=== PATIENT | male | born 1960 | race Caucasian/White ===

== ENCOUNTER 2020-07-28 13:52 | Inpatient (IN) ==
[2020-07-28] MEDS ORDERED: OPTIRAY 320 125ml IV ONE (14:07)
[2020-07-28] MEDS ORDERED: DEXAMETHASONE SOD INJ 4 MG/ML VIAL IV STA (14:14)
[2020-07-28] MEDS ORDERED: SODIUM CHLORIDE 0.9% 500 ML IV ONE (14:14)
[2020-07-28] MEDS ORDERED: ACETAMINOPHEN 1,000 MG/100 ML VIAL IV STA (14:14)
[2020-07-28] MEDS ORDERED: CEFEPIME 2,000 MG/20 ML VIAL IV STA (14:15)
[2020-07-28] MEDS ORDERED: levoFLOXacin/D5W 750 MG/150 ML BAG IV STA (14:15)
--- NOTE | 2020-07-28 14:32 | XRay Report ---
XR chest 1V portable HISTORY: SEPSIS COMPARISON: None. FINDINGS: No pneumothorax. Moderate multifocal airspace opacity seen within the periphery of the lung s most pronounced within the lower lobes. This is consistent with a multifocal viral pneumonia. No ev idence for pulmonary edema. No pleural effusions. No pneumothorax. The heart is normal in size. IMPRESSION: Moderate multifocal airspace opacities consistent with a pneumonia. ACT 112: Negative or not required by law. Electronically signed by: Antony Govea M.D. 07/28/2020 2:31 PM
--- NOTE | 2020-07-28 14:34 | Emergency Department Note ---
History of Present Illness General Chief complaint: Shortness of Breath/Dyspnea Stated complaint: COVID+, SHORT OF BREATH, WEAKNESS Time Seen by Provider: 07/28/20 14:03 Source: patient, RN notes reviewed and old records reviewed Mode of arrival: ambulatory Limitations: no limitations History of Present Illness Provider complaint: SOB Onset (ago): day(s) 3 Maximum Pain Intensity: 0 Current Pain Intensity: 0 Relieved By: + immobilization and + rest Exacerbated By: + movement Associated symptoms: + confusion, + cough, + fever/chills, + nausea/vomiting, + shortness of breath and + weakness Treatments prior to arrival: none This is a 59-year-old male who presents emergency department complaining of weakness that started today. The patient appears very confused and is unsure of the month. He thinks he had a Covid test approximately 1 week ago and there is some record in the chart that the patient may have been positive however the patient is unable to verify this. He reports he has no past medical history and does not take any medications. He has not taken anything for his weakness today. The patient reports he is not normally on oxygen. He reports rest makes his weakness better however movement makes it worse. Home Medications Medication Instructions Recorded Confirmed Type Metoprolol Succ (Toprol Xl) 50 mg PO DAILY #30 tab 12/03/14 07/28/20 History (Toprol-Xl) PRIMIDONE (MYSOLINE) 250 mg PO BID #0 tab 12/03/14 07/28/20 History aspirin 81 mg PO DAILY 07/28/20 07/28/20 History carbidopa-levodopa 1 tab PO TID 07/28/20 07/28/20 History lisinopril 10 mg PO DAILY 07/28/20 07/28/20 History topiramate 50 mg PO BID 07/28/20 07/28/20 History Allergies Allergy/AdvReac Type Severity Reaction Status Date / Time No Known Allergies Allergy Unverified 12/03/14 07:57 Past Med/Surg History Medical History (Updated 07/28/20 @ 18:17 by Karol Ramires PA-C) HTN (hypertension) Neuropathy Pneumonia Tick bite Tremor Surgical History (Updated 07/28/20 @ 16:33 by Karol Ramires PA-C) History of colonoscopy Family History (Updated 07/28/20 @ 16:34 by Karol Ramires PA-C) Mother Heart disease Hypotension Father Diabetes Heart disease Tremor Social History (Updated 07/28/20 @ 16:35 by Karol Ramires PA-C) Smoking Status: Never smoker Hx Alcohol Use: Yes (multiple drinks per day) Feels Safe at Home: Yes Review of Systems A total of 10 systems reviewed and were otherwise negative Physical Exam Vital Signs Vital Signs - 24 hr 07/28/20 13:53 07/28/20 14:06 07/28/20 14:08 Temperature 36.8 C Temperature Source Oral Pulse Rate 103 H 94 H Pulse Rate [Finger] Pulse Rate from SpO2 Sensor 94 H Respiratory Rate 18 18 Blood Pressure 91/61 L 104/65 Blood Pressure [Left Arm] Blood Pressure Mean 71 74 Blood Pressure Mean [Left Arm] Pulse Oximetry 85 L 96 85 L Oxygen Delivery Method Room Air Nasal Cannula Room Air Nasal Cannula Oxygen Flow Rate 4 0 Sepsis Recent Fever Within 48 Hours No Sepsis New/Unexplained Change in Mental Status No Sepsis Action Taken by Nursing No Action Required Oxygen Flow Rate - Titration 4 Pulse Oximetry Post Tiitration 95 07/28/20 14:09 07/28/20 14:15 07/28/20 14:21 Temperature 36.5 C Temperature Source Oral Pulse Rate 95 H 92 H Pulse Rate [Finger] 93 H Pulse Rate from SpO2 Sensor 95 H 92 H Respiratory Rate 18 21 20 Blood Pressure Blood Pressure [Left Arm] 104/65 Blood Pressure Mean Blood Pressure Mean [Left Arm] 78 Pulse Oximetry 94 96 94 Oxygen Delivery Method Nasal Cannula Nasal Cannula Nasal Cannula Oxygen Flow Rate 4 4 4 Sepsis Recent Fever Within 48 Hours Sepsis New/Unexplained Change in Mental Status Sepsis Action Taken by Nursing Oxygen Flow Rate - Titration Pulse Oximetry Post Tiitration 07/28/20 14:30 07/28/20 14:31 07/28/20 14:42 Temperature Temperature Source Pulse Rate 90 87 Pulse Rate [Finger] 92 H Pulse Rate from SpO2 Sensor 90 88 Respiratory Rate 23 27 H 16 Blood Pressure 90/63 L Blood Pressure [Left Arm] 90/63 L Blood Pressure Mean 70 Blood Pressure Mean [Left Arm] 72 Pulse Oximetry 95 96 96 Oxygen Delivery Method Nasal Cannula Nasal Cannula Nasal Cannula Oxygen Flow Rate 4 4 4 Sepsis Recent Fever Within 48 Hours Sepsis New/Unexplained Change in Mental Status Sepsis Action Taken by Nursing Oxygen Flow Rate - Titration Pulse Oximetry Post Tiitration 07/28/20 14:45 07/28/20 15:00 07/28/20 15:01 Temperature Temperature Source Pulse Rate 90 88 88 Pulse Rate [Finger] Pulse Rate from SpO2 Sensor 91 H 88 88 Respiratory Rate 21 Blood Pressure 93/68 L Blood Pressure [Left Arm] Blood Pressure Mean 73 Blood Pressure Mean [Left Arm] Pulse Oximetry 96 94 94 Oxygen Delivery Method Nasal Cannula Nasal Cannula Nasal Cannula Oxygen Flow Rate 4 4 4 Sepsis Recent Fever Within 48 Hours Sepsis New/Unexplained Change in Mental Status Sepsis Action Taken by Nursing Oxygen Flow Rate - Titration Pulse Oximetry Post Tiitration 07/28/20 15:15 07/28/20 15:18 07/28/20 15:19 Temperature Temperature Source Pulse Rate 85 84 Pulse Rate [Finger] 85 Pulse Rate from SpO2 Sensor 85 84 Respiratory Rate 20 19 20 Blood Pressure 113/79 Blood Pressure [Left Arm] 113/79 Blood Pressure Mean 93 Blood Pressure Mean [Left Arm] 90 Pulse Oximetry 96 96 96 Oxygen Delivery Method Nasal Cannula Nasal Cannula Room Air Oxygen Flow Rate 4 4 Sepsis Recent Fever Within 48 Hours Sepsis New/Unexplained Change in Mental Status Sepsis Action Taken by Nursing Oxygen Flow Rate - Titration Pulse Oximetry Post Tiitration 07/28/20 15:30 07/28/20 15:31 07/28/20 15:34 Temperature Temperature Source Pulse Rate 86 84 Pulse Rate [Finger] 77 Pulse Rate from SpO2 Sensor 87 84 Respiratory Rate 25 H 21 22 Blood Pressure 119/79 Blood Pressure [Left Arm] 119/78 Blood Pressure Mean 88 Blood Pressure Mean [Left Arm] 91 Pulse Oximetry 96 96 98 Oxygen Delivery Method Nasal Cannula Nasal Cannula Oxygen Flow Rate 4 4 Sepsis Recent Fever Within 48 Hours Sepsis New/Unexplained Change in Mental Status Sepsis Action Taken by Nursing Oxygen Flow Rate - Titration Pulse Oximetry Post Tiitration 07/28/20 15:45 07/28/20 16:03 07/28/20 16:04 Temperature Temperature Source Pulse Rate 78 Pulse Rate [Finger] Pulse Rate from SpO2 Sensor 78 86 82 Respiratory Rate 19 22 Blood Pressure 122/84 Blood Pressure [Left Arm] Blood Pressure Mean 87 Blood Pressure Mean [Left Arm] Pulse Oximetry 100 98 97 Oxygen Delivery Method Nasal Cannula Nasal Cannula Oxygen Flow Rate 4 4 Sepsis Recent Fever Within 48 Hours Sepsis New/Unexplained Change in Mental Status Sepsis Action Taken by Nursing Oxygen Flow Rate - Titration Pulse Oximetry Post Tiitration 07/28/20 16:15 07/28/20 16:16 07/28/20 16:30 Temperature Temperature Source Pulse Rate 82 80 81 Pulse Rate [Finger] Pulse Rate from SpO2 Sensor 81 80 82 Respiratory Rate 21 23 22 Blood Pressure 125/85 123/85 Blood Pressure [Left Arm] Blood Pressure Mean 93 95 Blood Pressure Mean [Left Arm] Pulse Oximetry 100 100 100 Oxygen Delivery Method Oxygen Flow Rate Sepsis Recent Fever Within 48 Hours Sepsis New/Unexplained Change in Mental Status Sepsis Action Taken by Nursing Oxygen Flow Rate - Titration Pulse Oximetry Post Tiitration 07/28/20 16:31 07/28/20 16:45 07/28/20 16:46 Temperature Temperature Source Pulse Rate 81 84 85 Pulse Rate [Finger] Pulse Rate from SpO2 Sensor 81 85 85 Respiratory Rate 23 22 22 Blood Pressure 127/87 Blood Pressure [Left Arm] Blood Pressure Mean 94 Blood Pressure Mean [Left Arm] Pulse Oximetry 99 97 98 Oxygen Delivery Method Oxygen Flow Rate Sepsis Recent Fever Within 48 Hours Sepsis New/Unexplained Change in Mental Status Sepsis Action Taken by Nursing Oxygen Flow Rate - Titration Pulse Oximetry Post Tiitration VITAL SIGNS - Vital signs and nursing notes were reviewed. GENERAL - 59-year-old male appearing stated age who is in no acute distress. Knows he is in hospital, unable to verifiy basic facts, thinks its August SKIN - Without rashes. HEAD - NC/AT. EYES - PERRL with EOMI bilaterally. Sclera anicteric. Palpebral conjunctiva pink and moist with no injection noted. EARS - No deformities of external structures noted on gross examination bilaterally. No pain elicited with palpation of the tragus bilaterally. External auditory canals without discharge or otorrhea. Tympanic membranes pearly carvajal without retraction or bulging. No fluid or purulent material visualized behind the TM. Handle of malleus, umbo, cone of light, pars tensa/flaccid all easily visualized. NOSE - Midline and without cyanosis. No epistaxis or purulent drainage noted. Septum midline without deviation or septal hematoma noted. MOUTH/OROPHARYNX - Without perioral cyanosis. Buccal mucosa pink and moist and without leukoplakia. Tongue midline with equal elevation of palate bilaterally. No tonsillar hypertrophy, erythema, or exudates noted. dentition noted. NECK - Neck with FROM. Supple to palpation. lymphadenopathy noted. No nuchal rigidity. LUNGS - Chest wall symmetric without accessory muscle use, intercostals retractions, or central cyanosis. Normal vesicular breath sounds CTA B/L. No wheezes, rales, or rhonchi appreciated. CARDIAC - RRR with S1/S2. No murmur, rubs, or gallops appreciated. ABDOMEN - Abdominal contour without pulsations or visible masses. BS normoactive all four quadrants. No tenderness, palpable masses, hepatosplenomegaly, or ascites noted. EXTREMITIES - No clubbing or peripheral cyanosis. No pretibial edema present. +3/5 radial, posterior tibial, and dorsalis pedis pulses palpated throughout. +5/5 strength noted in UE/LE bilaterally. NEUROLOGIC - Cranial nerves II through XII grossly intact. Sensory intact to light touch throughout. Patellar reflexes +2/4. PSYCH - A&Ox3 and cooperates fully with examiner. Pt is very pleasant and interacts well with examiner. Course Administered Medications Acetylcysteine 3,400 mg/ (Dextrose) 517 mls @ 125 mls/hr IV TODAY@1715 [facility]; Protocol Stop: 07/28/20 21:24 Last Admin: 07/28/20 17:45 Dose: 125 mls/hr Documented by: [id number] Remdesivir 200 mg/ Sodium (Chloride) 250 mls @ 125 mls/hr IV ONE STA; Protocol Stop: 07/28/20 19:26 Last Admin: 07/28/20 18:13 Dose: 125 mls/hr Documented by: [id number] Discontinued Medications Dexamethasone (Dexamethasone Sod Inj 4 Mg/Ml Vial) 6 mg IV NOW STA Stop: 07/28/20 14:15 Last Admin: 07/28/20 14:41 Dose: 6 mg Documented by: [id number] Diphenhydramine HCl (Diphenhydramine 50 Mg/Ml Vial) 50 mg IV NOW STA Stop: 07/28/20 15:28 Last Admin: 07/28/20 15:30 Dose: 50 mg Documented by: [id number] Diphenhydramine HCl (Diphenhydramine 50 Mg/Ml Vial) Confirm Administered Dose 50 mg .ROUTE .STK-MED ONE Stop: 07/28/20 15:29 Last Admin: 07/28/20 16:12 Dose: Not Given Documented by: [id number] Sodium Chloride (Nss) 500 mls @ 999 mls/hr IV .Q31M ONE Stop: 07/28/20 14:44 Last Infusion: 07/28/20 15:19 Dose: 0 mls/hr Documented by: [id number] Admin: 07/28/20 14:41 Dose: 999 mls/hr Documented by: [id number] Acetaminophen (Ofirmev) 1,000 mg in 100 mls @ 400 mls/hr IV NOW STA Stop: 07/28/20 14:28 Last Infusion: 07/28/20 14:56 Dose: 0 mls/hr Documented by: [id number] Admin: 07/28/20 14:41 Dose: 400 mls/hr Documented by: [id number] Cefepime HCl (Maxipime) 2,000 mg in 20 mls @ 5 mls/min IV NOW STA Stop: 07/28/20 14:18 Last Admin: 07/28/20 14:41 Dose: 5 mls/min Documented by: [id number] Levofloxacin/Dextrose (Levaquin/D5w) 750 mg in 150 mls @ 100 mls/hr IV NOW STA Stop: 07/28/20 15:44 Last Infusion: 07/28/20 18:17 Dose: 0 mls/hr Documented by: [id number] Infusion: 07/28/20 15:29 Dose: 0 mls/hr Documented by: [id number] Admin: 07/28/20 14:41 Dose: 100 mls/hr Documented by: [id number] Multivitamins 10 ml/ Thiamine HCl 100 mg/ Folic Acid 1 mg/Sodium Chloride 1,011.2 mls @ 1,011.2 mls/hr IV .Q1H ONE Stop: 07/28/20 15:52 Last Infusion: 07/28/20 16:28 Dose: 0 mls/hr Documented by: [id number] Admin: 07/28/20 15:18 Dose: 1,011.2 mls/hr Documented by: [id number] Sodium Chloride (Nss 1000ml) 1,000 mls @ 999 mls/hr IV .Q1H1M ONE Stop: 07/28/20 16:14 Last Infusion: 07/28/20 16:28 Dose: 0 mls/hr Documented by: [id number] Admin: 07/28/20 15:30 Dose: 999 mls/hr Documented by: [id number] Acetylcysteine 10,200 mg/ (Dextrose) 251 mls @ 200 mls/hr IV ONCE ONE; Protocol Stop: 07/28/20 16:59 Last Infusion: 07/28/20 17:33 Dose: 0 mls/hr Documented by: [id number] Admin: 07/28/20 16:12 Dose: 200 mls/hr Documented by: [id number] Phytonadione 2.5 mg/ Sodium (Chloride) 50.25 mls @ 100.5 mls/hr IV ONE ONE Stop: 07/28/20 16:20 Last Infusion: 07/28/20 16:48 Dose: 0 mls/hr Documented by: [id number] Admin: 07/28/20 16:10 Dose: 100.5 mls/hr Documented by: [id number] Ioversol (Optiray 320 125ml) 118 ml IV ONCE ONE Stop: 07/28/20 14:08 Last Admin: 07/28/20 14:08 Dose: 118 ml Documented by: [id number] Potassium Chloride (Potassium Chloride Crtab 20 Meq Tabcr) 40 meq PO NOW STA Stop: 07/28/20 15:17 Last Admin: 07/28/20 15:21 Dose: 40 meq Documented by: [id number] Critical Care Time I have personally spent greater than 90 minutes of critical care time in the direct management of this patient. This includes bedside care, interpretation of diagnostic studies, and testing, discussion with consultants, patient, and family members, and other required patient management activities. This 90 minutes is in excess of all separately billable procedures. Medical Decision Making Differential Diagnosis Reactive airway disease, pneumonia, pneumothorax, COPD, CHF, infections, cardiac ischemia, pulmonary embolism, musculoskeletal, gastrointestinal, as well as other pathologies. Medical Records Attestation: I reviewed the patient's medical records. Home Medications Current Medication List: was personally reviewed by [email or web address] Laboratory Data Attestation: I reviewed the patient's lab results. Result diagrams: 07/28/20 14:18 07/28/20 14:18 Lab Results 07/28/20 07/28/20 07/28/20 Range/Units 14:18 14:18 14:18 WBC 3.95 L (4.8-10.8) K/uL RBC 3.32 L (4.7-6.1) M/uL Hgb 11.7 L (14.0-18.0) g/dL Hct 33.6 L (42-52) % MCV 101.2 H (80-100) fL MCH 35.2 H (25-34) pg MCHC 34.8 (32-36) g/dL RDW Std Deviation 51.5 H (36.4-46.3) fL RDW Coeff of Abdifatah 13.9 (11.5-14.5) % Plt Count 200 (130-400) K/uL MPV 12.6 H (7.4-10.4) fL Immature Gran % (Auto) 0.8 % Neut % (Auto) 83.7 % Lymph % (Auto) 12.2 % [place] % (Auto) 2.5 % Eos % (Auto) 0.5 % Baso % (Auto) 0.3 % Neut # (Auto) 3.31 (1.4-6.5) K/uL Lymph # (Auto) 0.48 L (1.2-3.4) K/uL [place] # (Auto) 0.10 L (0.11-0.59) K/uL Eos # (Auto) 0.02 (0-0.5) K/uL Baso # (Auto) 0.01 (0-0.2) K/uL Immature Gran # (Auto) 0.03 H (0.00-0.02) K/uL Dohle Bodies 1+ Giant Platelets 1+ ESR > 90 H (0-14) mm/hr PT (9.0-12.0) Seconds INR (0.9-1.1) APTT (21.0-31.0) Seconds PTT Ratio D-Dimer (0-500) ug/L FEU Sodium (136-145) mmol/L Potassium (3.5-5.1) mmol/L Chloride (98-107) mmol/L Carbon Dioxide (21-32) mmol/L Anion Gap (3-11) BUN (7-18) mg/dl Creatinine (0.6-1.4) mg/dl Est Cr Clr Drug Dosing ml/min Est GFR ( Amer) Est GFR (Non-Af Amer) BUN/Creatinine Ratio (10-20) Glucose (70-99) mg/dl Lactate (0.4-2.0) mmol/L Calcium (8.5-10.1) mg/dl Magnesium (1.8-2.4) mg/dl Ferritin (8-388) ng/ml Total Bilirubin (0.2-1) mg/dl AST (15-37) U/L ALT (12-78) U/L Alkaline Phosphatase (45-117) U/L Ammonia (11-32) umol/L Lactate Dehydrogenase (87-241) U/L Troponin I (0-0.045) ng/ml C-Reactive Protein (0-0.29) mg/dl Total Protein (6.4-8.2) gm/dl Albumin (3.4-5.0) gm/dl Globulin (2.5-4.0) gm/dl Albumin/Globulin Ratio (0.9-2) Vitamin B12 Folate Procalcitonin (0-0.5) ng/ml Acetaminophen Ethyl Alcohol mg/dL (0-3) mg/dl COVID-19 Eval Order SARS-CoV-2, RNA, NAAT (NEGATIVE) Blood Type B Positive Antibody Screen NEGATIVE 07/28/20 07/28/20 07/28/20 Range/Units 14:18 14:18 14:18 WBC (4.8-10.8) K/uL RBC (4.7-6.1) M/uL Hgb (14.0-18.0) g/dL Hct (42-52) % MCV (80-100) fL MCH (25-34) pg MCHC (32-36) g/dL RDW Std Deviation (36.4-46.3) fL RDW Coeff of Abdifatah (11.5-14.5) % Plt Count (130-400) K/uL MPV (7.4-10.4) fL Immature Gran % (Auto) % Neut % (Auto) % Lymph % (Auto) % [place] % (Auto) % Eos % (Auto) % Baso % (Auto) % Neut # (Auto) (1.4-6.5) K/uL Lymph # (Auto) (1.2-3.4) K/uL [place] # (Auto) (0.11-0.59) K/uL Eos # (Auto) (0-0.5) K/uL Baso # (Auto) (0-0.2) K/uL Immature Gran # (Auto) (0.00-0.02) K/uL Dohle Bodies Giant Platelets ESR (0-14) mm/hr PT 46.0 H (9.0-12.0) Seconds INR 4.7 H (0.9-1.1) APTT 51.9 H* (21.0-31.0) Seconds PTT Ratio 1.9 D-Dimer 8030 H* (0-500) ug/L FEU Sodium 132 L (136-145) mmol/L Potassium 3.2 L (3.5-5.1) mmol/L Chloride 99 (98-107) mmol/L Carbon Dioxide 24 (21-32) mmol/L Anion Gap 9.0 (3-11) BUN 56 H (7-18) mg/dl Creatinine 1.80 H (0.6-1.4) mg/dl Est Cr Clr Drug Dosing 40.8 ml/min Est GFR ( Amer) 46.4 Est GFR (Non-Af Amer) 40.0 BUN/Creatinine Ratio 31.1 H (10-20) Glucose 141 H (70-99) mg/dl Lactate 1.9 (0.4-2.0) mmol/L Calcium 8.4 L (8.5-10.1) mg/dl Magnesium 3.3 H (1.8-2.4) mg/dl Ferritin 5456.1 H (8-388) ng/ml Total Bilirubin 0.8 (0.2-1) mg/dl AST 97 H (15-37) U/L ALT 7 L (12-78) U/L Alkaline Phosphatase 71 (45-117) U/L Ammonia (11-32) umol/L Lactate Dehydrogenase (87-241) U/L Troponin I < 0.015 (0-0.045) ng/ml C-Reactive Protein 31.30 H (0-0.29) mg/dl Total Protein 7.7 (6.4-8.2) gm/dl Albumin 2.2 L (3.4-5.0) gm/dl Globulin 5.5 H (2.5-4.0) gm/dl Albumin/Globulin Ratio 0.4 L (0.9-2) Vitamin B12 Folate Procalcitonin (0-0.5) ng/ml Acetaminophen Ethyl Alcohol mg/dL (0-3) mg/dl COVID-19 Eval Order SARS-CoV-2, RNA, NAAT (NEGATIVE) Blood Type Antibody Screen 07/28/20 07/28/20 07/28/20 Range/Units 14:18 14:18 14:39 WBC (4.8-10.8) K/uL RBC (4.7-6.1) M/uL Hgb (14.0-18.0) g/dL Hct (42-52) % MCV (80-100) fL MCH (25-34) pg MCHC (32-36) g/dL RDW Std Deviation (36.4-46.3) fL RDW Coeff of Abdifatah (11.5-14.5) % Plt Count (130-400) K/uL MPV (7.4-10.4) fL Immature Gran % (Auto) % Neut % (Auto) % Lymph % (Auto) % [place] % (Auto) % Eos % (Auto) % Baso % (Auto) % Neut # (Auto) (1.4-6.5) K/uL Lymph # (Auto) (1.2-3.4) K/uL [place] # (Auto) (0.11-0.59) K/uL Eos # (Auto) (0-0.5) K/uL Baso # (Auto) (0-0.2) K/uL Immature Gran # (Auto) (0.00-0.02) K/uL Dohle Bodies Giant Platelets ESR (0-14) mm/hr PT (9.0-12.0) Seconds INR (0.9-1.1) APTT (21.0-31.0) Seconds PTT Ratio D-Dimer (0-500) ug/L FEU Sodium (136-145) mmol/L Potassium (3.5-5.1) mmol/L Chloride (98-107) mmol/L Carbon Dioxide (21-32) mmol/L Anion Gap (3-11) BUN (7-18) mg/dl Creatinine (0.6-1.4) mg/dl Est Cr Clr Drug Dosing ml/min Est GFR ( Amer) Est GFR (Non-Af Amer) BUN/Creatinine Ratio (10-20) Glucose (70-99) mg/dl Lactate (0.4-2.0) mmol/L Calcium (8.5-10.1) mg/dl Magnesium (1.8-2.4) mg/dl Ferritin (8-388) ng/ml Total Bilirubin (0.2-1) mg/dl AST (15-37) U/L ALT (12-78) U/L Alkaline Phosphatase (45-117) U/L Ammonia (11-32) umol/L Lactate Dehydrogenase 598 H (87-241) U/L Troponin I (0-0.045) ng/ml C-Reactive Protein (0-0.29) mg/dl Total Protein (6.4-8.2) gm/dl Albumin (3.4-5.0) gm/dl Globulin (2.5-4.0) gm/dl Albumin/Globulin Ratio (0.9-2) Vitamin B12 Folate Procalcitonin 16.08 H (0-0.5) ng/ml Acetaminophen Ethyl Alcohol mg/dL (0-3) mg/dl COVID-19 Eval [email or web address] SARS-CoV-2, RNA, NAAT (NEGATIVE) Blood Type Antibody Screen 07/28/20 07/28/20 07/28/20 Range/Units 14:39 16:25 16:36 WBC (4.8-10.8) K/uL RBC (4.7-6.1) M/uL Hgb (14.0-18.0) g/dL Hct (42-52) % MCV (80-100) fL MCH (25-34) pg MCHC (32-36) g/dL RDW Std Deviation (36.4-46.3) fL RDW Coeff of Abdifatah (11.5-14.5) % Plt Count (130-400) K/uL MPV (7.4-10.4) fL Immature Gran % (Auto) % Neut % (Auto) % Lymph % (Auto) % [place] % (Auto) % Eos % (Auto) % Baso % (Auto) % Neut # (Auto) (1.4-6.5) K/uL Lymph # (Auto) (1.2-3.4) K/uL [place] # (Auto) (0.11-0.59) K/uL Eos # (Auto) (0-0.5) K/uL Baso # (Auto) (0-0.2) K/uL Immature Gran # (Auto) (0.00-0.02) K/uL Dohle Bodies Giant Platelets ESR (0-14) mm/hr PT (9.0-12.0) Seconds INR (0.9-1.1) APTT (21.0-31.0) Seconds PTT Ratio D-Dimer (0-500) ug/L FEU Sodium (136-145) mmol/L Potassium (3.5-5.1) mmol/L Chloride (98-107) mmol/L Carbon Dioxide (21-32) mmol/L Anion Gap (3-11) BUN (7-18) mg/dl Creatinine (0.6-1.4) mg/dl Est Cr Clr Drug Dosing ml/min Est GFR ( Amer) Est GFR (Non-Af Amer) BUN/Creatinine Ratio (10-20) Glucose (70-99) mg/dl Lactate (0.4-2.0) mmol/L Calcium (8.5-10.1) mg/dl Magnesium (1.8-2.4) mg/dl Ferritin (8-388) ng/ml Total Bilirubin (0.2-1) mg/dl AST (15-37) U/L ALT (12-78) U/L Alkaline Phosphatase (45-117) U/L Ammonia 17.9 (11-32) umol/L Lactate Dehydrogenase (87-241) U/L Troponin I (0-0.045) ng/ml C-Reactive Protein (0-0.29) mg/dl Total Protein (6.4-8.2) gm/dl Albumin (3.4-5.0) gm/dl Globulin (2.5-4.0) gm/dl Albumin/Globulin Ratio (0.9-2) Vitamin B12 Folate Procalcitonin (0-0.5) ng/ml Acetaminophen Ethyl Alcohol mg/dL < 3.0 (0-3) mg/dl COVID-19 Eval Order SARS-CoV-2, RNA, NAAT POSITIVE A* (NEGATIVE) Blood Type Antibody Screen 07/28/20 07/28/20 Range/Units 16:37 16:39 WBC (4.8-10.8) K/uL RBC (4.7-6.1) M/uL Hgb (14.0-18.0) g/dL Hct (42-52) % MCV (80-100) fL MCH (25-34) pg MCHC (32-36) g/dL RDW Std Deviation (36.4-46.3) fL RDW Coeff of Abdifatah (11.5-14.5) % Plt Count (130-400) K/uL MPV (7.4-10.4) fL Immature Gran % (Auto) % Neut % (Auto) % Lymph % (Auto) % [place] % (Auto) % Eos % (Auto) % Baso % (Auto) % Neut # (Auto) (1.4-6.5) K/uL Lymph # (Auto) (1.2-3.4) K/uL [place] # (Auto) (0.11-0.59) K/uL Eos # (Auto) (0-0.5) K/uL Baso # (Auto) (0-0.2) K/uL Immature Gran # (Auto) (0.00-0.02) K/uL Dohle Bodies Giant Platelets ESR (0-14) mm/hr PT (9.0-12.0) Seconds INR (0.9-1.1) APTT (21.0-31.0) Seconds PTT Ratio D-Dimer (0-500) ug/L FEU Sodium (136-145) mmol/L Potassium (3.5-5.1) mmol/L Chloride (98-107) mmol/L Carbon Dioxide (21-32) mmol/L Anion Gap (3-11) BUN (7-18) mg/dl Creatinine (0.6-1.4) mg/dl Est Cr Clr Drug Dosing ml/min Est GFR ( Amer) Est GFR (Non-Af Amer) BUN/Creatinine Ratio (10-20) Glucose (70-99) mg/dl Lactate (0.4-2.0) mmol/L Calcium (8.5-10.1) mg/dl Magnesium (1.8-2.4) mg/dl Ferritin (8-388) ng/ml Total Bilirubin (0.2-1) mg/dl AST (15-37) U/L ALT (12-78) U/L Alkaline Phosphatase (45-117) U/L Ammonia (11-32) umol/L Lactate Dehydrogenase (87-241) U/L Troponin I (0-0.045) ng/ml C-Reactive Protein (0-0.29) mg/dl Total Protein (6.4-8.2) gm/dl Albumin (3.4-5.0) gm/dl Globulin (2.5-4.0) gm/dl Albumin/Globulin Ratio (0.9-2) Vitamin B12 Cancelled Folate Cancelled Procalcitonin (0-0.5) ng/ml Acetaminophen Cancelled Ethyl Alcohol mg/dL (0-3) mg/dl COVID-19 Eval Order SARS-CoV-2, RNA, NAAT (NEGATIVE) Blood Type Antibody Screen Imaging Data Radiologist's Impression: [facility], [place] [phone] XRay Report Patient: ADRIA BELLO Admit Date: 07/28/20 MR#: [id number] Address1: [address] [place] [address] [address] Acct ID:[id number] Address2: Date: 1960 [facility] Zip: [place] [id number] Age: 59 Location: ED Sex: M Room/Bed: Att Phy: Diagnosis: COVID+, SHORT OF BREATH, WEAKNESS Marylou Phy: Lalo Sue MD Service Date: 07/28/20 Fam Phy: Interpreting Phy: Antony Govea MD Admit Phy: Ordering Phy: Aristides Marin MD cc: ~ XR chest 1V portable HISTORY: SEPSIS COMPARISON: None. FINDINGS: No pneumothorax. Moderate multifocal airspace opacity seen within the periphery of the lungs most pronounced within the lower lobes. This is consistent with a multifocal viral pneumonia. No evidence for pulmonary edema. No pleural effusions. No pneumothorax. The heart is normal in size. IMPRESSION: Moderate multifocal airspace opacities consistent with a pneumonia. ACT 112: Negative or not required by law. Electronically signed by: Antony Govea M.D. 07/28/2020 2:31 PM Dictated: 07/28/20 1430 Transcribed: 07/28/20 1430 [facility], [phone] CT Scan Report Patient: ADRIA BELLOAdmit Date: 07/28/20MR#: [id number]: [address] [place] [address] ROADAcct ID:[id number]: Date: 1960[facility] Zip: [place] [id number]: 59Location: EDSex: MRoom/Bed:Att Phy:Diagnosis: COVID+, SHORT OF BREATH, WEAKNESSPri Phy: Lalo Sue, ANAIervice Date: 07/28/20Fa Phy:Interpreting Phy: Antony Conley Phy: Ordering Phy: Aristides Marin MD cc: ~ CT chest wo con CT DOSE: HISTORY: Cough. Fever. Pt ARF, Covid+ TECHNIQUE: Multiaxial CT images of the chest were performed without contrast. A dose lowering technique was utilized adhering to the principles of ALARA. COMPARISON: Cough. Fever. Shortness of breath. FINDINGS: No pneumothorax. No pleural effusions. The central airways are patent. Moderate multifocal groundglass and consolidative airspace opacities with areas of interstitial thickening consistent with a viral pneumonia. No suspicious lytic or blastic osseous lesions. Normal esophagus. No hilar lymphadenopathy. Subcentimeter mediastinal lymph nodes do not meet CT criteria for pathologic involvement. There are calcified subcarinal and left hilar lymph nodes. The heart is normal in size. No pericardial effusion. Normal caliber thoracic aorta. Old, healed left anterior rib fractures. No suspicious lytic or blastic osseous lesions. IMPRESSION: Moderate multifocal airspace opacities consistent with a viral pneumonia. ACT 112: Negative or not required by law. Electronically signed by: Antony Govea M.D. 07/28/2020 4:06 PM Dictated: 07/28/20 1601Transcribed: 07/28/20 1601 [facility], [id number] CT Scan Report Patient: ADRIA BELLOAdmit Date: 07/28/20#: [id number]: [facility]:[id number]: Date: 1960Ci Zip: [place] [id number]: 59Location: EDSex: MRoom/Bed:Att Phy:Diagnosis: COVID+, SHORT OF BREATH, WEAKNESSPri Phy: Lalo Sue, ANAIervice Date: 07/28/20Fa Phy:Interpreting Phy: Antony Conley Phy: Ordering Phy: Aristides Marin MD cc: ~ ABDOMEN AND PELVIS CT WITHOUT CONTRAST CT DOSE: 1132.53 mGy.cm HISTORY: Acute renal failure. TECHNIQUE: Multiaxial CT images of the abdomen and pelvis were performed without contrast. A dose lowering technique was utilized adhering to the principles of ALARA. COMPARISON STUDY: None. FINDINGS: There is 7 mm subpleural nodule within the left lower lobe on image 1. This was not well visualized on the same day chest CT due to the motion artifact. Multifocal airspace opacities are again noted within the lung bases. This is consistent with a viral pneumonia. No pneumoperitoneum. No pneumatosis. Old, healed left-sided rib fractures. Tiny fat-containing umbilical hernia. Moderate bladder wall thickening. The prostate gland is mildly enlarged. The unenhanced liver, gallbladder, adrenal glands, and pancreas are within normal limits. The unenhanced kidneys appear unremarkable. No renal or ureteral stones. No hydronephrosis. Minimal bilateral perinephric edema. This is likely chronic. No retroperitoneal lymphadenopathy. Normal caliber abdominal aorta. No pelvic free fluid. Suboptimal evaluation for bowel pathology due to the lack of intravenous and oral contrast. However, there is no definite bowel wall thickening or obstruction. Normal appendix. IMPRESSION: 1. No renal or ureteral stones. No hydronephrosis. 2. Moderate bladder wall thickening. This could be due to a chronic outlet obstruction from the enlarged prostate gland. Recommend correlation with urinalysis to exclude a cystitis. 3. No definite bowel wall thickening or obstruction. 4. A 7 mm subpleural nodule within the left lower lobe. This is not well evaluated on the same day chest CT due to the motion artifact. [address] follow-up recommended to evaluate for stability. 5. Moderate multifocal airspace opacities within the lung bases consistent with the patient's history of a viral pneumonia. ACT 112: Negative or not required by law. Electronically signed by: Antony Govea M.D. 07/28/2020 4:15 PM Dictated: 07/28/20 1607Transcribed: 07/28/20 160 [facility], [id number] CT Scan Report Patient: ADRIA BELLOAdmit Date: 07/28/20#: [id number]: 122 [facility] ID:[id number]: Date: 1960ty Zip: [place] [id number]: 59Location: EDSex: MRoom/Bed:Att Phy:Diagnosis: COVID+, SHORT OF BREATH, WEAKNESSPri Phy: Lalo Sue MDService Date: 07/28/20Fa Phy:Interpreting Phy: Antony Govea MDAdmit Phy: Ordering Phy: Aristides Marin MD cc: ~ HEAD CT NONCONTRAST CT DOSE: HISTORY: Altered mental status. Fever. TECHNIQUE: Multiaxial CT images of the head were performed without the use of intravenous contrast. Automated exposure control was utilized for this study. A dose lowering technique was utilized adhering to the principles of ALARA. Comparison: None. Findings: The paranasal sinuses and mastoid air cells are clear. The calvarium and skull base are intact. The ventricles and sulci are within normal limits. There is no mass, hematoma, midline shift, or acute infarct. Impression: No acute intracranial abnormality. ACT 112: Negative or not required by law. Electronically signed by: Antony Govea M.D. 07/28/2020 4:47 PM Dictated: 07/28/201643Transcribed: 07/28/201643 ECG Data Attestation: I personally reviewed and interpreted this ECG as follows: Indication: + altered mental status Rate (beats per minute): 93 Rhythm: + normal sinus ECG Intervals/blocks: + Prolonged QT and + Normal QT-c (492) ECG [place]: + Normal ECG ST segments: no ST depression and no ST elevation Comparison ECG Date: no prior available Blood Pressure Blood Pressure Findings: Low blood pressure MDM Narrative Patient was seen and evaluated as above in room C5. Review was performed of nursing notes and vital signs. I did review pertinent previous visits and patient history. After obtaining a thorough history and physical examination the above work up was performed. This is a 59-year-old male who presents to the emergency department acutely confused. The patient is septic with a fever hypotensive and tachycardic. Sepsis alert was immediately initiated. The patient was placed on broad- spectrum antibiotics including cefepime and Levaquin. He is requiring oxygen here in the emergency department. He was given a normal saline bolus. The patient has an elevation in his INR. This 70 grossly confirmed concerned that the patient may be liver failure however he has a normal T bili. Talking with the [facility] service they are concerned that the patient may have taken Coumadin that was his mother's. He was sent for CAT scan of the chest abdomen pelvis. This did not show any acute process. He was started on N- acetylcysteine alcohol and Tylenol levels were obtained. He was also given 2.5 mg of vitamin K. I did discuss the case with the hospitalist service who was kind enough to come and see the patient. They are going to admit the patient. In the meantime the patient had an allergic reaction to the Levaquin and was given 50 mg of Benadryl. The patient was given a banana bag as well as 1.5 L of normal saline bolus make an equivalent of 2.5 L of fluid to cover sepsis criteria. An order was placed for continuous cardiac monitoring. The monitor shows a rate of 93 with Normal SInus rhythm. The patient was evaluated during a period of high volume and high acuity while the hospital was at overcapacity during the global COVID-19 pandemic, and that diagnosis was suspected/considered upon their initial presentation. Their evaluation, treatment and testing was consistent with current guidelines for patients who present with complaints or symptoms that may be related to COVID- 19. Impression & Plan Altered mental status, Sepsis Discharge Plan Visit Data Chief Complaint: Shortness of Breath/Dyspnea Stated Complaint: COVID+, SHORT OF BREATH, WEAKNESS ED Provider: Aristides Marin Discharge Problem: Altered mental status, Sepsis Discharge Instructions Interventions: ED Discharge Assessment Last Done: 07/28/20 19:05 Discharge Problem: Altered mental status Qualifiers: Altered mental status type: unspecified Qualified Code(s): R41.82 - Altered mental status, unspecified Sepsis Qualifiers: Sepsis type: sepsis due to unspecified organism Sepsis acute organ dysfunction status: unspecified Qualified Code(s): A41.9 - Sepsis, unspecified organism
[2020-07-28 14:41] LABS: Hematocrit (blood only) 33.6 % (42-52); Hemoglobin 11.7 g/dL (14.0-18.0); Mean Corpuscular Hemoglobin 35.2 pg (25-34); Mean Corpuscular Hgb Conc 34.8 g/dL (32-36); Mean Corpuscular Volume 101.2 fL (80-100); Mean Platelet Volume 12.6 fL (7.4-10.4); Platelet Count 200 K/uL (130-400); RDW Coefficient of Variation 13.9 % (11.5-14.5); RDW Standard Deviation 51.5 fL (36.4-46.3); Red Blood Count 3.32 M/uL (4.7-6.1); White Blood Count 3.95 K/uL (4.8-10.8)
[2020-07-28] MEDS ORDERED: MULTI-VITAMIN INFUSION 10 ML, THIAMINE HCL 100 MG, FOLIC ACID 1 MG in SODIUM CHLORIDE 0... IV ONE (14:53)
[2020-07-28 15:03] LABS: Alanine Aminotransferase 7 U/L (12-78); Albumin Level 2.2 gm/dl (3.4-5.0); Aspartate Aminotransferase 97 U/L (15-37); BUN Creatinine Ratio 31.1 (10-20); Blood Urea Nitrogen 56 mg/dl (7-18); Calcium 8.4 mg/dl (8.5-10.1); Carbon Dioxide 24 mmol/L (21-32); Chloride 99 mmol/L (98-107); Creatinine Clr Calc Pharmacy 40.8 ml/min; Est GFR (African American) 46.4; Glucose 141 mg/dl (70-99); Magnesium 3.3 mg/dl (1.8-2.4); Potassium 3.2 mmol/L (3.5-5.1); Sodium 132 mmol/L (136-145)
[2020-07-28 15:04] LABS: INR 4.7 (0.9-1.1); Partial Thromboplastin Ratio 1.9
[2020-07-28 15:10] LABS: D Dimer 8030 ug/L FEU (0-500); Partial Thromboplastin Time 51.9 Seconds (21.0-31.0)
[2020-07-28 15:12] LABS: Basophils # (auto) 0.01 K/uL (0-0.2); Basophils % (auto) 0.3 %; Dohle Bodies 1+; Eosinophils # (auto) 0.02 K/uL (0-0.5); Eosinophils % (auto) 0.5 %; Giant Platelets 1+; Immature Granulocytes # (auto) 0.03 K/uL (0.00-0.02); Immature Granulocytes % (auto) 0.8 %; Lymphocytes # (auto) 0.48 K/uL (1.2-3.4); Lymphocytes % (auto) 12.2 %; Monocytes % (auto) 2.5 %; Neutrophils # (auto) 3.31 K/uL (1.4-6.5); Neutrophils % (auto) 83.7 %
[2020-07-28] MEDS ORDERED: SODIUM CHLORIDE 0.9% 1000ML 1,000 ML IV ONE (15:14)
[2020-07-28] MEDS ORDERED: POTASSIUM CHLORIDE CRTAB 20 MEQ TABCR PO STA (15:16)
[2020-07-28 15:23] LABS: Albumin Globulin Ratio 0.4 (0.9-2); Alkaline Phosphatase 71 U/L (45-117); Bilirubin,Total 0.8 mg/dl (0.2-1); Ferritin 5456.1 ng/ml (8-388); Globulin 5.5 gm/dl (2.5-4.0); Total Protein 7.7 gm/dl (6.4-8.2); Troponin I < 0.015 ng/ml (0-0.045)
[2020-07-28] MEDS ORDERED: diphenhydrAMINE 50 MG/ML VIAL IV STA (15:27)
[2020-07-28] MEDS ORDERED: diphenhydrAMINE 50 MG/ML VIAL ONE (15:28)
[2020-07-28] MEDS ORDERED: DEXTROSE 5% IV ONE (15:44)
[2020-07-28] MEDS ORDERED: ACETYLCYSTEINE IV ONE (15:44)
[2020-07-28] MEDS ORDERED: PHYTONADIONE 2.5 MG in SODIUM CHLORIDE 0.9% 50 ML IV ONE (15:51)
--- NOTE | 2020-07-28 16:08 | CT Scan Report ---
CT chest wo con CT DOSE: HISTORY: Cough. Fever. Pt ARF, Covid+ TECHNIQUE: Multiaxial CT images of the chest were performed without contrast. A dose lowering techni que was utilized adhering to the principles of ALARA. COMPARISON: Cough. Fever. Shortness of breath. FINDINGS: No pneumothorax. No pleural effusions. The central airways are patent. Moderate multifocal groundglass and consolidative airspace opacities with areas of interstitial thickening consistent wit h a viral pneumonia. No suspicious lytic or blastic osseous lesions. Normal esophagus. No hilar lymph adenopathy. Subcentimeter mediastinal lymph nodes do not meet CT criteria for pathologic involvement. There are calcified subcarinal and left hilar lymph nodes. The heart is normal in size. No pericardi al effusion. Normal caliber thoracic aorta. Old, healed left anterior rib fractures. No suspicious ly tic or blastic osseous lesions. IMPRESSION: Moderate multifocal airspace opacities consistent with a viral pneumonia. ACT 112: Negative or not required by law. Electronically signed by: Antony Govea M.D. 07/28/2020 4:06 PM
--- NOTE | 2020-07-28 16:10 | History & Physical Report ---
Date of Service July 28, 2020 Assessment & Plan (1) Sepsis: (2) Pneumonia: (3) COVID-19: (4) Anemia: (5) Macrocytosis: (6) Elevated INR: (7) Altered mental status: Patient presented to the ED acutely confused, possibly secondary to COVID related encephalopathy. Patient was informed of his COVID diagnosis yesterday, and this morning became extremely confused. History taken from his mother & his mother's caregiver, Kalpana who felt the patient has been off balance, unable to walk properly, and having worsening tremors x 1 week or so. Confusion was only today. Admit to telemetry for further monitoring. Patient needs to continue isolation for COVID-19 infection. Multiple lab values with abnormalities as stated in the HPI. Patient is not on Warfain, but his INR was 4.7. Because of elevated INR, anemia, macrocytosis, and severe presentation, will check further labs including: B12, folate, peripheral smear, fibrinogen, reticulocyte count, haptoglobin Pending labs include: urine tox screen, Tylenol level, Warfarin level Repeat in AM: CBC, CMP, ESR, CRP, LDH, INR, Ferritin, CBC Because of COVID-19 infection, patient was also started on Dexamethasone, Remdesivir, and he does qualify for convalescent plasma. The patient verbally consented, but the patient's mother also consented to treatment after discussion with Dr. Manley. Due to patient's altered mental status, family consent was also obtained. Continue to supplement O2 PRN to maintain SaO2 >90% CT of Abd/Pelvis and CT Head were unrevealing for causes of lab abnormalities. Continue to monitor closely for mental status changes. Seems unlikely that patient is having alcohol withdrawal since he hasn't drank in >1 week per family and per patient (with Dr. Manley's examination) With elevated procalcitonin, will also continue PO Levaquin and IV Cefepime, renally dosed pending improvement Will also check MRSA nasal swab, if +, may need to change coverage. Consider CTA Chest to R/O PE if renal function improves. (8) Tremor: Patient has outpatient tremor and neuropathy that was worsened over the past week. Seems likely secondary to COVID-19 infection. Monitor for changes (9) Acute renal failure: Will continue NSS 100cc/hr Repeat renal function in AM Encourage PO intake (10) DVT prophylaxis: SCDs only for now with elevated INR Family Information: Brother Armando: [phone] Mother Rhonda: [phone] History of Present Illness Chief Complaint: Confusion, COVID Primary Care Provider: Lalo Sue MD Patient is a 59 yo male who presented to the ED via personal vehicle, his brother dropped him off with acute confusion. The patient is unable to give any history because of current mental state. His outpatient records were accessed, and his mother's name was in the emergency contact. His mother, Rhonda Macias was contacted. She has a caregiver with her daily, Kalpana who answered most of the questions asked. The patient's mother and Kalpana state that the patient started increasing his alcohol consumption about 3-4 weeks ago and was drinking about a 6-pack or more per day. He abruptly stopped (from what they know) about 1 1/2 weeks ago. He also stopped chewing tobacco about 1 week ago. He was diagnosed with COVID as an outpatient. His test was done on Wednesday and came back this weekend. 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 Kalpana noted that the patient has been having increased problems with his balance at home x 1 week. The patient does have resting tremor, and outpatient records note that he was being worked up for "parkinsonism" but he never completed the workup. His medication list was reviewed with Kalpana as well. The patient does take Tylenol at home regularly. 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 Since presentation to the ED, the patient was confirmed to have COVID-19 infection. Labs revealed: WBC 3.95 slightly decreased. Hgb 11.7 with macrocytosis ESR >90 CRP 31.3 Ferritin 5456 LDH 598 INR 4.7 (though patient is not on Coumadin) Mild LFT elevation with AST 97, ALT 7, Alk Phos & total bili within norm Procalcitonin elevated at 16 Patient also noted to have ERICA with Creatinine of 1.8. Baseline is 0.9 as outpatient. No history of renal disease in chart. Potassium 3.2, Sodium 132, Magnesium elevated at 3.3 Tylenol level pending. SaO2 upon presentation was 85%. Slightly hypotensive upon arrival, but Vitals are now stable. Patient is on O2 via nasal cannula. Allergies Allergy/AdvReac Type Severity Reaction Status Date / Time No Known Allergies Allergy Unverified 12/03/14 07:57 Home Medications Medication Instructions Recorded Confirmed Type Metoprolol Succ (Toprol Xl) 50 mg PO DAILY #30 tab 12/03/14 07/28/20 History (Toprol-Xl) PRIMIDONE (MYSOLINE) 250 mg PO BID #0 tab 12/03/14 07/28/20 History aspirin 81 mg PO DAILY 07/28/20 07/28/20 History carbidopa-levodopa 1 tab PO TID 07/28/20 07/28/20 History lisinopril 10 mg PO DAILY 07/28/20 07/28/20 History topiramate 50 mg PO BID 07/28/20 07/28/20 History Past Med/Surg History Medical History (Updated 07/28/20 @ 18:17 by Karol Ramires PA-C) HTN (hypertension) Neuropathy Pneumonia Tick bite Tremor Surgical History (Updated 07/28/20 @ 16:33 by Karol Ramires PA-C) History of colonoscopy Family History (Updated 07/28/20 @ 16:34 by Karol Ramires PA-C) Mother Heart disease Hypotension Father Diabetes Heart disease Tremor Social History (Updated 07/28/20 @ 16:35 by Karol Ramires PA-C) Smoking Status: Never smoker Second Hand Exposure: No; Do You Dip or Chew Tobacco: Yes; Tobacco Cessation Education Requested by Patient: No Hx Alcohol Use: Yes Alcohol type: beer Hx Substance Use: No Preferred Language: Italian Communication Ability: Effective Communication Ability Comment: INT. 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 Manley's addendum for physical exam findings. Results & Data Results & Data ([facility]) Vital Signs (Past 12 Hours) Vital Signs Temp Pulse Pulse Resp BP BP Pulse Ox 07/28/20 15:34 77 22 119/78 98 07/28/20 15:19 85 20 113/79 96 07/28/20 14:42 92 H 16 90/63 L 96 07/28/20 14:21 36.5 C 93 H 20 104/65 94 07/28/20 14:08 85 L 07/28/20 13:53 36.8 C 103 H 18 91/61 L 85 L Laboratory Results Laboratory Results - last 24 hr 07/28/20 07/28/20 07/28/20 14:18 14:18 14:18 WBC 3.95 L RBC 3.32 L Hgb 11.7 L Hct 33.6 L MCV 101.2 H MCH 35.2 H MCHC 34.8 RDW Std Deviation 51.5 H RDW Coeff of Abdifatah 13.9 Plt Count 200 MPV 12.6 H Immature Gran % (Auto) 0.8 Neut % (Auto) 83.7 Lymph % (Auto) 12.2 [place] % (Auto) 2.5 Eos % (Auto) 0.5 Baso % (Auto) 0.3 Neut # (Auto) 3.31 Lymph # (Auto) 0.48 L [place] # (Auto) 0.10 L Eos # (Auto) 0.02 Baso # (Auto) 0.01 Immature Gran # (Auto) 0.03 H Dohle Bodies 1+ Giant Platelets 1+ ESR > 90 H PT INR APTT PTT Ratio D-Dimer Sodium Potassium Chloride Carbon Dioxide Anion Gap BUN Creatinine Est Cr Clr Drug Dosing Est GFR ( Amer) Est GFR (Non-Af Amer) BUN/Creatinine Ratio Glucose Lactate Calcium Magnesium Ferritin Total Bilirubin AST ALT Alkaline Phosphatase Lactate Dehydrogenase Troponin I C-Reactive Protein Total Protein Albumin Globulin Albumin/Globulin Ratio Procalcitonin COVID-19 Eval Order SARS-CoV-2, RNA, NAAT Blood Type B Positive Antibody Screen NEGATIVE 07/28/20 07/28/20 07/28/20 14:18 14:18 14:18 WBC RBC Hgb Hct MCV MCH MCHC RDW Std Deviation RDW Coeff of Abdifatah Plt Count MPV Immature Gran % (Auto) Neut % (Auto) Lymph % (Auto) [place] % (Auto) Eos % (Auto) Baso % (Auto) Neut # (Auto) Lymph # (Auto) [place] # (Auto) Eos # (Auto) Baso # (Auto) Immature Gran # (Auto) Dohle Bodies Giant Platelets ESR PT 46.0 H INR 4.7 H APTT 51.9 H* PTT Ratio 1.9 D-Dimer 8030 H* Sodium 132 L Potassium 3.2 L Chloride 99 Carbon Dioxide 24 Anion Gap 9.0 BUN 56 H Creatinine 1.80 H Est Cr Clr Drug Dosing 40.8 Est GFR ( Amer) 46.4 Est GFR (Non-Af Amer) 40.0 BUN/Creatinine Ratio 31.1 H Glucose 141 H Lactate 1.9 Calcium 8.4 L Magnesium 3.3 H Ferritin 5456.1 H Total Bilirubin 0.8 AST 97 H ALT 7 L Alkaline Phosphatase 71 Lactate Dehydrogenase Troponin I < 0.015 C-Reactive Protein 31.30 H Total Protein 7.7 Albumin 2.2 L Globulin 5.5 H Albumin/Globulin Ratio 0.4 L Procalcitonin COVID-19 Eval Order SARS-CoV-2, RNA, NAAT Blood Type Antibody Screen 07/28/20 07/28/20 07/28/20 14:18 14:18 14:39 WBC RBC Hgb Hct MCV MCH MCHC RDW Std Deviation RDW Coeff of Abdifatah Plt Count MPV Immature Gran % (Auto) Neut % (Auto) Lymph % (Auto) [place] % (Auto) Eos % (Auto) Baso % (Auto) Neut # (Auto) Lymph # (Auto) [place] # (Auto) Eos # (Auto) Baso # (Auto) Immature Gran # (Auto) Dohle Bodies Giant Platelets ESR PT INR APTT PTT Ratio D-Dimer Sodium Potassium Chloride Carbon Dioxide Anion Gap BUN Creatinine Est Cr Clr Drug Dosing Est GFR ( Amer) Est GFR (Non-Af Amer) BUN/Creatinine Ratio Glucose Lactate Calcium Magnesium Ferritin Total Bilirubin AST ALT Alkaline Phosphatase Lactate Dehydrogenase 598 H Troponin I C-Reactive Protein Total Protein Albumin Globulin Albumin/Globulin Ratio Procalcitonin 16.08 H COVID-19 Eval Order Covid19 [facility] SARS-CoV-2, RNA, NAAT Blood Type Antibody Screen 07/28/20 14:39 WBC RBC Hgb Hct MCV MCH MCHC RDW Std Deviation RDW Coeff of Abdifatah Plt Count MPV Immature Gran % (Auto) Neut % (Auto) Lymph % (Auto) [place] % (Auto) Eos % (Auto) Baso % (Auto) Neut # (Auto) Lymph # (Auto) [place] # (Auto) Eos # (Auto) Baso # (Auto) Immature Gran # (Auto) Dohle Bodies Giant Platelets ESR PT INR APTT PTT Ratio D-Dimer Sodium Potassium Chloride Carbon Dioxide Anion Gap BUN Creatinine Est Cr Clr Drug Dosing Est GFR ( Amer) Est GFR (Non-Af Amer) BUN/Creatinine Ratio Glucose Lactate Calcium Magnesium Ferritin Total Bilirubin AST ALT Alkaline Phosphatase Lactate Dehydrogenase Troponin I C-Reactive Protein Total Protein Albumin Globulin Albumin/Globulin Ratio Procalcitonin COVID-19 Eval Order SARS-CoV-2, RNA, NAAT POSITIVE A* Blood Type Antibody Screen Diagnostic Findings CHEST X-RAY: IMPRESSION: Moderate multifocal airspace opacities consistent with a pneumonia. Chest CT: IMPRESSION: Moderate multifocal airspace opacities consistent with a viral pneumonia. Abd/Pelvis CT: IMPRESSION: 1. No renal or ureteral stones. No hydronephrosis. 2. Moderate bladder wall thickening. This could be due to a chronic outlet obstruction from the enlarged prostate gland. Recommend correlation with urinalysis to exclude a cystitis. 3. No definite bowel wall thickening or obstruction. 4. A 7 mm subpleural nodule within the left lower lobe. This is not well evaluated on the same day chest CT due to the motion artifact. [address] follow-up recommended to evaluate for stability. 5. Moderate multifocal airspace opacities within the lung bases consistent with the patient's history of a viral pneumonia. Head CT: Impression: No acute intracranial abnormality. Supervising Physician Co-Signing Physician Notes Pt was seen and examined. Agreed with Karol BURGOS assessment and plan. Patient is a 59 yo male with PMH of HTN was brought by his brother to the ED due to altered mental status. Most of the history obtained from family members over the phone and ER chart. Pt said that this morning he woke up, he had his breakfast. He said that he had a call from [facility] that his COVID 19 testing was positive. He said that he was testing for COVID due to symptoms of shortness of breath. Pt said that he was having SOB on exertion. Pt said that the last thing he remembered was getting the call for his COVID 19 result, then after that he found himself in the hospital. Family said that pt has been off balance lately. Family said that pt quits drinking alcohol 2 weeks ago. Pt said that he could not recalled the last time he drank. He said that he did not drink for Neil and New year. The patient does have resting tremor, and outpatient records note that he was being worked up for "parkinsonism". 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 His oxygen level on presentation was in the 85's on RA. Lab on admission showed elevated Ferritin 5456, LDH 598, INR 4.7 (though patient is not on Coumadin), Mild LFT elevation with AST 97, ALT 7, Alk Phos & total bili within norm, Procalcitonin elevated at 16 and creatinine 1.6. Denies any chest pain, palpitation, dizziness and fever, loss of taste or smell. General- No acute distress Head- atraumatic Eyes- PERRL, EOMI, no nystagmus ENT- oropharynx clear Neck- supple, no JVD Lungs- No wheezing Heart- regular rhythm; no murmur Abdomen- normal bowel sounds, soft, nontender Extremities- no calf tenderness Neuro- alert, awake, know place, month, year but not the date, able to follow commands, finger to nose intake, no tremors, No nystagmus, PERRL, EOMI; no facial palsy; no dysarthria Skin- warm & dry A/P COVID 19 Positive Pneumonia COVID [address] chest showed moderate multifocal airspace opacities consistent with a viral pneumonia. Lab on admission showed elevated Ferritin 5456, LDH 598, and procalcitonin Received IV dexamethasone 6mg and Levofloxacin and Cefepime in the ER Pt meets criteria for Remdesivir, Decadron and plasma convalescent Pt agreed for the Remdesivir and plasma convalescent, but since he is having altered mental status, telephone consent obtained from the Mother (and Kalpana mother caregiver was on the line also). Mother agreed for the plasma convalescent after reviewed side effects such as allergies, rash, fever, bleeding, infection, volume overload. Will monitor LFT while on Remdesivir Will repeat D-Dimer, CRP, ESR, Ferritin, LDH in am Continue broad spectrum abx with Cefepime and Levaquin Will follow blood cx Coagulopathy Elevated D-dimer Elevated INR Mostly due to COVID 19 INR 4.1 on admission Received Vit K in the ER Unable to get a CT chest to r/o PE due to elevate creatinine Doubt PE since INR was 4.1, but if D-Dimer continues to elevate and SOB worsening, will get a CTA chest once creatinine normalizes Will order fibrinogen, haptoglobin, recticulocyte ct, peripheral smear to eval for DIC Encephalopathy Possible related to COVID 19 encephalopathy Doubt about DT since pt last drink was 2 weeks ago according to family and pt. CT head showed no acute intracranial abnormality Will continue monitor closely Alcohol abuse Pt said that he has not had any drink for almost 2 weeks Will monitor for sign of DT or withdrawn Will add thiamine and folic acid Continue monitor closely Elevated AST Received Acetylcysteine in the ER Tylenol level normal Will monitor LFT Please refer to Karol BURGOS's documentation for other problems. MD Sindhu (1) Sepsis Sepsis acute organ dysfunction status: unspecified Sepsis type: sepsis due to unspecified organism Qualified Code(s): A41.9 - Sepsis, unspecified organism (2) Altered mental status Altered mental status type: unspecified Qualified Code(s): R41.82 - Altered mental status, unspecified
--- NOTE | 2020-07-28 16:16 | CT Scan Report ---
ABDOMEN AND PELVIS CT WITHOUT CONTRAST CT DOSE: 1132.53 mGy.cm HISTORY: Acute renal failure. TECHNIQUE: Multiaxial CT images of the abdomen and pelvis were performed without contrast. A dose lo wering technique was utilized adhering to the principles of ALARA. COMPARISON STUDY: None. FINDINGS: There is 7 mm subpleural nodule within the left lower lobe on image 1. This was not well vi sualized on the same day chest CT due to the motion artifact. Multifocal airspace opacities are again noted within the lung bases. This is consistent with a viral pneumonia. No pneumoperitoneum. No pneu matosis. Old, healed left-sided rib fractures. Tiny fat-containing umbilical hernia. Moderate bladder wall thickening. The prostate gland is mildly enlarged. The unenhanced liver, gallbladder, adrenal g lands, and pancreas are within normal limits. The unenhanced kidneys appear unremarkable. No renal or ureteral stones. No hydronephrosis. Minimal bilateral perinephric edema. This is likely chronic. No retroperitoneal lymphadenopathy. Normal caliber abdominal aorta. No pelvic free fluid. Suboptimal yinka luation for bowel pathology due to the lack of intravenous and oral contrast. However, there is no de finite bowel wall thickening or obstruction. Normal appendix. IMPRESSION: 1. No renal or ureteral stones. No hydronephrosis. 2. Moderate bladder wall thickening. This could be due to a chronic outlet obstruction from the enlar ged prostate gland. Recommend correlation with urinalysis to exclude a cystitis. 3. No definite bowel wall thickening or obstruction. 4. A 7 mm subpleural nodule within the left lower lobe. This is not well evaluated on the same day ch est CT due to the motion artifact. [address] follow-up recommended to evaluate for stability. 5. Moderate multifocal airspace opacities within the lung bases consistent with the patient's history of a viral pneumonia. ACT 112: Negative or not required by law. Electronically signed by: Antony Govea M.D. 07/28/2020 4:15 PM
--- NOTE | 2020-07-28 16:49 | CT Scan Report ---
HEAD CT NONCONTRAST CT DOSE: HISTORY: Altered mental status. Fever. TECHNIQUE: Multiaxial CT images of the head were performed without the use of intravenous contrast. A utomated exposure control was utilized for this study. A dose lowering technique was utilized adheri ng to the principles of ALARA. Comparison: None. Findings: The paranasal sinuses and mastoid air cells are clear. The calvarium and skull base are int act. The ventricles and sulci are within normal limits. There is no mass, hematoma, midline shift, or acute infarct. Impression: No acute intracranial abnormality. ACT 112: Negative or not required by law. Electronically signed by: Antony Govea M.D. 07/28/2020 4:47 PM
[2020-07-28] MEDS ORDERED: DEXTROSE 5% IV SCH ×2 (17:15→21:30)
[2020-07-28] MEDS ORDERED: ACETYLCYSTEINE IV SCH ×2 (17:15→21:30)
[2020-07-28] MEDS ORDERED: REMDESIVIR 200 MG in SODIUM CHLORIDE 0.9% 210 ML IV STA (17:27)
[2020-07-28 19:04] LABS: Folate (Folic Acid) > 20.00 ng/ml (>5.38); Vitamin B12 444 pg/ml (193-986)
[2020-07-28] MEDS ORDERED: CEFEPIME CONSULT ACTIVE PRN (19:35)
[2020-07-28 20:26] LABS: Fibrinogen > 860 mg/dl (184-400)
[2020-07-28] MEDS: SODIUM CHLORIDE 0.9% 1000ML 1,000 ML IV SCH (20:36)
[2020-07-28] MEDS: SODIUM CHLORIDE 0.9% 10ML FLUSH IV SCH (20:36)
[2020-07-28] MEDS: TOPIRAMATE 50 MG TAB PO SCH (21:50)
[2020-07-28] MEDS: PRIMIDONE 250 MG TAB PO SCH (21:50)
[2020-07-28] MEDS: CARBIDOPA/LEVODOPA 25/100MG TAB PO SCH (21:51)
--- NOTE | 2020-07-28 22:38 | Electrocardiogram Report ---
Test Reason : Blood Pressure : / mmHG Vent. Rate : 093 BPM Atrial Rate : 093 BPM P-R Int : 162 ms QRS Dur : 104 ms QT Int : 396 ms P-R-T Axes : 049 015 052 degrees QTc Int : 492 ms Normal sinus rhythm Prolonged QT Abnormal ECG No previous ECGs available Confirmed by Juan José Perkins ([id number]) on 07/28/2020 10:37:46 PM Referred By: REFERRED SELF Confirmed By:Juan José Perkins
[2020-07-29] MEDS: CEFEPIME 2,000 MG in SYRINGE 0 ML IV SCH ×3 (00:12→19:47)
[2020-07-29 00:37] LABS: Appearance Urine Clear (Clear); Bacteria Urine Automated Negative (Negative); Bilirubin Urine Negative (Negative); Blood Urine Negative (Negative); Color Urine Yellow; Glucose Urine UA Negative (Negative); Ketones Urine Trace (Negative); Leukocyte Esterase Urine Negative (Negative); Nitrite Urine Negative (Negative); Protein Urine 1+ (Negative); RBC Urine Automated 0-4 /hpf (0-4); Specific Gravity Urine 1.022 (1.000-1.030); Urobilinogen Urine Negative (Negative)
[2020-07-29 00:54] LABS: Amphetamines+Metham, Urine Neg (Neg); Barbiturates, Urine Pos (Neg); Benzodiazepine, Urine Neg (Neg); Cocaine, Urine Neg (Neg); MDMA (Ecstacy), Urine Neg (Neg); Methadone, Urine Neg (Neg); Opiate, Urine Neg (Neg); Phencyclidine, Urine Neg (Neg)
[2020-07-29] MEDS: SODIUM CHLORIDE 0.9% 1000ML 1,000 ML IV SCH ×2 (06:25→15:33)
[2020-07-29 07:11] LABS: Hemoglobin 10.4 g/dL (14.0-18.0); Mean Corpuscular Hemoglobin 34.8 pg (25-34); Mean Corpuscular Hgb Conc 34.7 g/dL (32-36); Mean Corpuscular Volume 100.3 fL (80-100); Mean Platelet Volume 12.2 fL (7.4-10.4); Platelet Count 196 K/uL (130-400); RDW Coefficient of Variation 14.1 % (11.5-14.5); RDW Standard Deviation 51.5 fL (36.4-46.3); Red Blood Count 2.99 M/uL (4.7-6.1); White Blood Count 2.62 K/uL (4.8-10.8)
[2020-07-29 07:27] LABS: INR 1.1 (0.9-1.1); Prothrombin Time 11.3 Seconds (9.0-12.0)
[2020-07-29 07:37] LABS: Eosinophils # (auto) 0.01 K/uL (0-0.5); Eosinophils % (auto) 0.4 %; Giant Platelets 1+; Immature Granulocytes # (auto) 0.01 K/uL (0.00-0.02); Immature Granulocytes % (auto) 0.4 %; Lymphocytes # (auto) 0.37 K/uL (1.2-3.4); Lymphocytes % (auto) 14.1 %; Monocytes # (auto) 0.11 K/uL (0.11-0.59); Monocytes % (auto) 4.2 %; Neutrophils # (auto) 2.12 K/uL (1.4-6.5); Neutrophils % (auto) 80.9 %
[2020-07-29 07:49] LABS: Albumin Level 1.5 gm/dl (3.4-5.0); BUN Creatinine Ratio 33.8 (10-20); Calcium 7.4 mg/dl (8.5-10.1); Creatinine Clr Calc Pharmacy 74.6 ml/min; Est GFR (African American) 100.4; Est GFR (Non-African American) 86.7; Potassium 3.5 mmol/L (3.5-5.1)
[2020-07-29 08:04] LABS: Albumin Globulin Ratio 0.3 (0.9-2); Bilirubin,Total 0.6 mg/dl (0.2-1); C Reactive Protein 18.6 mg/dl (0-0.29); Ferritin 3886.3 ng/ml (8-388); Globulin 4.4 gm/dl (2.5-4.0); Total Protein 5.9 gm/dl (6.4-8.2)
[2020-07-29] MEDS: CARBIDOPA/LEVODOPA 25/100MG TAB PO SCH ×3 (08:10→19:49)
[2020-07-29] MEDS: METOPROLOL SUCC 50MG EXT REL TAB PO SCH (08:11)
[2020-07-29] MEDS: lisinopril 10 MG TAB PO SCH (08:11)
[2020-07-29] MEDS: TOPIRAMATE 50 MG TAB PO SCH ×2 (08:11→19:49)
[2020-07-29] MEDS: PRIMIDONE 250 MG TAB PO SCH ×2 (08:12→19:49)
[2020-07-29] MEDS ORDERED: POTASSIUM CHLORIDE CRTAB 20 MEQ TABCR PO STA ×2 (08:13→12:33)
[2020-07-29] MEDS: dexAMETHasone 6 MG in SYRINGE 0 ML IV SCH (08:16)
--- NOTE | 2020-07-29 08:37 | Pulmonary Consultation ---
Date of Consultation July 29, 2020 Assessment & Plan (1) Pneumonia due to COVID-19 virus: CT chest 07/28/2019 personally reviewed: Diffuse groundglass opacities appreciated mostly in the periphery. No dense consolidative process. No mediastinal adenopathy. --Acute hypoxic respiratory failure Secondary to multilobar pneumonia secondary to COVID-19 Ferritin 5456, LDH 598, CRP 31.3, procalcitonin 16 COVID-19 PCR + 07/28/2020, nasal MRSA negative Positive lymphopenia D-dimer 9680 Continue with remdesivir for total of 5 days Continue with dexamethasone for total of 10 days Given the elevated procalcitonin I would agree with antibiotics. Lovenox 40 mg twice daily --Metabolic encephalopathy I think it is multifactorial Patient is a drinker which does go with his underlying pancytopenia macrocytic anemia --> would be case of Warnicke's encephalopathy COVID-19 has been associated with altered mental status as well Steroid encephalopathy is also a possibility Lewby body dementia with history of parkinsons is in the differential. MRI of the brain could be thought of. Sodium, Calcium within normal limit, ammonia 17.9 Tylenol negative, UDS was positive for barbiturates, alcohol level was negative Aspiration precautions Plan as per primary team Plan: Continue to supplement oxygen to keep saturation between 90-92% Complete the course of remdesivir and dexamethasone I will increase the thiamine for the patient to be 500 mg 3 times daily for 2 days followed by 250 mg for 5 days daily and 100 mg daily along with multivitamins Discontinue levofloxacin given the QTC is 475 instead give doxycycline Patient does have complex initial presentation where he had INR of 4.7 although he was not on any medication, Tylenol level was negative. Today's INR is 1.1 he did get vitamin K in the ED but should not to normal I am unsure if the first INR was a mistake. Patient's metabolic acidosis is likely from starvation ketosis as beta hydroxybutyric acid is positive today. Recommend starting the patient on D5 after supplementing the patient with thiamine. Follow-up TSH Please note the above document was generated using voice recognition software. It may contain grammatical, syntax or spelling errors.Any formal questions or concerns about the content, text or information contained within the body of this dictation should be directly addressed to the provider for clarification. (2) Metabolic encephalopathy: (3) Acute respiratory failure with hypoxia: (4) COVID-19: History of Present Illness Attending Physician: Piyush Manley MD History of Present Illness 59-year-old male with past medical history of possible alcohol abuse, Parkinson's disease, hypertension was admitted to the hospital because of encephalopathy Pulmonary consult because of increasing oxygen demand. Patient is a very poor historian. At the time of examination he was saturating 95% on 6 L nasal cannula. I went down to 4 L. He denied any chest pain, no headache, no nausea, no vomiting. He says that his breathing is okay. Unfortunately he was not able to answer very complex questions He was not in any respiratory distress. Was breathing in high teens. Allergies Allergy/AdvReac Type Severity Reaction Status Date / Time No Known Allergies Allergy Unverified 12/03/14 07:57 Home Medications Medication Instructions Recorded Confirmed Type Metoprolol Succ (Toprol Xl) 50 mg PO DAILY #30 tab 12/03/14 07/28/20 History (Toprol-Xl) PRIMIDONE (MYSOLINE) 250 mg PO BID #0 tab 12/03/14 07/28/20 History aspirin 81 mg PO DAILY 07/28/20 07/28/20 History carbidopa-levodopa 1 tab PO TID 07/28/20 07/28/20 History lisinopril 10 mg PO DAILY 07/28/20 07/28/20 History topiramate 50 mg PO BID 07/28/20 07/28/20 History Patient History Medical History (Updated 07/29/20 @ 17:49 by Zaida Pacheco MD) HTN (hypertension) Neuropathy Pneumonia Tick bite Tremor Surgical History (Updated 07/28/20 @ 16:33 by Karol Ramires PA-C) History of colonoscopy Family History (Updated 07/28/20 @ 16:34 by Karol Ramires PA-C) Mother Heart disease Hypotension Father Diabetes Heart disease Tremor Social History (Updated 07/28/20 @ 16:35 by Karol Ramires PA-C) Smoking Status: Never smoker Second Hand Exposure: No; Do You Dip or Chew Tobacco: Yes; Tobacco Cessation Education Requested by Patient: No Hx Alcohol Use: Yes Alcohol type: beer Hx Substance Use: No Preferred Language: Syriac Communication Ability: Impaired Communication Ability Comment: INT. 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 Other Information That Helps Us Care for You: No Feels Safe at Home: Yes Safety Concerns: Feels Safe At This Time Review of Systems Review of Systems: All systems reviewed & are unremarkable except as noted in HPI & below and Unobtainable due to cognitive status Physical Exam Physical Exam: Constitutional: No acute distress HEENT: EOMI, PERRLA Respiratory system: Decreased air entry bilaterally, no wheeze, no rhonchi, positive crackles bilateral CVS: S1-S2 positive, no murmurs or gallops, tachycardia Abdomen: Soft, nontender, nondistended, positive bowel sounds x4 Extremities: +2 pulses bilaterally radialis/ dorsalis pedis, no cyanosis, no edema Neuro: Awake alert oriented x3 Psych: Normal mood and affect G/U: No Kinney Skin: no rashes, warm and dry Lymphatic: no cervical or axillary lymphadenopathy Results & Data Results & Data ([facility]) Vital Signs (Past 12 Hours) Vital Signs Temp Pulse Pulse Resp BP BP Pulse Ox 07/29/20 08:28 36.7 C 118 H 20 136/78 93 07/29/20 06:26 22 92 07/29/20 03:57 24 94 07/29/20 03:28 37.5 C 115 H 19 152/90 H 97 07/29/20 02:00 22 93 07/28/20 23:59 87 07/28/20 23:54 99 H 24 169/89 H 97 07/28/20 23:52 22 97 07/28/20 22:53 24 92 07/28/20 22:00 91 H 22 134/72 94 07/28/20 21:00 20 93 07/29/20 06:40 07/29/20 06:40 PG Care Time/CCT Total # of Minutes Spent Total Time Spent with Patient: Total time spent is greater than 50% in coordination of care (as documented) at patient's floor/unit and/or counseling patient: Coding Level of Care Code 02488 Inpt Consult Level 4 Diagnoses Pneumonia due to COVID-19 virus U07.1; J12.82 Metabolic encephalopathy G93.41 Acute respiratory failure with hypoxia J96.01 COVID-19 U07.1
[2020-07-29 09:03] LABS: D Dimer 9680 ug/L FEU (0-500)
--- NOTE | 2020-07-29 14:42 | Electrocardiogram Report ---
Test Reason : Blood Pressure : / mmHG Vent. Rate : 112 BPM Atrial Rate : 112 BPM P-R Int : 170 ms QRS Dur : 102 ms QT Int : 348 ms P-R-T Axes : 049 014 070 degrees QTc Int : 475 ms Sinus tachycardia Otherwise normal ECG When compared with ECG of 28-JUL-2020 14:21, No significant change was found Confirmed by Hugh Oliver ([id number]) on 07/29/2020 2:42:10 PM Referred By: REFERRED SELF Confirmed By:Hugh Oliver
[2020-07-29 14:46] LABS: Reticulocyte % < 0.5 % (0.5-2.0); Reticulocytes # < 0.02 10^6/uL (0.02-0.10)
--- NOTE | 2020-07-29 15:32 | Hospitalist Progress Note ---
Date of Service July 29, 2020 Assessment & Plan (1) Altered mental status: Patient presented to the ED acutely confused Possible due to COVID 19 encephalopathy, doubt altered mental status is related to alcohol withdrawal Doubt about DT since pt last drink was 2 weeks ago according to family and pt. Ammonia level normal CT head showed no intracranial abnormality No neuro focal deficit on exam Mental status improves (2) Pneumonia due to COVID-19 virus: COVID [address] chest showed moderate multifocal airspace opacities consistent with a viral pneumonia. Lab on admission showed elevated Ferritin 5456, LDH 598, and procalcitonin Received IV dexamethasone 6mg and Levofloxacin and Cefepime in the ER Pt meets criteria for Remdesivir, Decadron and plasma convalescent Pt agreed for the Remdesivir and plasma convalescent, but since he is having altered mental status, telephone consent obtained from the Mother (and Kalpana mother caregiver was on the line also). Mother agreed for the plasma convalescent after reviewed side effects such as allergies, rash, fever, bleeding, infection, volume overload. Consent obtained on admission- waiting to administer Continue monitor LFT while on Remdesivir D-Dimer increased to 9K, CRP trending down from 31 to 18, ESR above 90, Ferritin dropped to 3886 LDH decreased to 466 Continue broad spectrum abx with Cefepime and Levaquin Will continue monitor anti inflammatory markers such as CRP, ESR, Ferritin and LDH Continue High flow oxygen Will encourage pt to prone Follow blood cx Pulmonology consulted Acute renal failure Creatinine on admission 1.8 Received IVF, creatinine 0.9 Lisinopril resumed Continue monitor BMP Elevated INR Possible related to COVID 19 vs poor nutrition and alcohol vs liver etiology INR 4.1 on admission, Received Vit K in the ER, repeat INR today 1.1 Elevated INR might have been related to lab error No sign of DIC since no oozing blood on exam, fibrinogen level elevated Peripheral smear showed No significant number of schistocytes or spherocytes is identified. Elevated D-dimer Mostly related to COVID 19 Doubt PE since INR was 4.1 on admission Repeat INR increased from 8K to 9K today NO CTA chest done on admission because pt creatinine was elevate at 1.8 Case discussed with pulmonary that recommended to hold on any CTA chest for PE Will continue monitor closely Alcohol abuse Alcohol level less than 3 Pt said that he has not had any drink for almost 2 weeks Will monitor for sign of DT or withdrawn Will add thiamine and folic acid Continue monitor closely Elevated AST Possible related to alcohol abuse UDS negative Will complete Acetylcysteine that was ordered in the ER Tylenol level normal AST improved to 62 Continue monitor LFT Anemia Hgb 10.4 today Iron panel showed normal iron, low TIBC , Elevated ferritin Peripheral smear showed slightly macrocytic appearing erythrocytes without anisopoikilocytosis. Continue monitor CBC Elevated Beta hydroxybutyrate Possible related to alcohol abuse/poor nutrition No anion gap Continue IVF Weakness Mostly related to acute illness and alcohol abuse PT/OT eval Fall precaution DVT px will add Lovenox subq CODE STATUS FULL CODE Admission and Anticipated Discharge Date Admission Date: July 28, 2020 Subjective Pt was seen and examined for follow up of confusion and hypoxia due to COVID19 Lying in bed with no distress watching TV Pt said that he feels ok He said that he spoke to his family on the phone today He said that he remembered his brother brought him to the hospital He said that he has not been drinking any alcohol for a while He said that his breathing ok Denies any hallucination, chest pain, palpitation, dizziness, voices Physical Exam Physical Exam: General- No acute distress Head- atraumatic Eyes- PERRL, EOMI, no nystagmus ENT- oropharynx clear Neck- supple, no JVD Lungs- No wheezing Heart- +tachycardia, no murmur Abdomen- normal bowel sounds, soft, nontender Extremities- no calf tenderness Neuro- alert, awake, know place, month, year but not the date, able to follow commands, finger to nose intake, no tremors, No nystagmus, PERRL, EOMI; no facial palsy; no dysarthria Skin- warm & dry Results & Data Results & [facility] ([facility]) Vital Signs (Past 12 Hours) Vital Signs Temp Pulse Resp BP Pulse Ox 07/29/20 14:56 37.3 C 104 H 20 144/92 H 95 07/29/20 11:01 37.3 C 113 H 20 140/88 93 07/29/20 08:28 36.7 C 118 H 20 136/78 93 07/29/20 06:26 22 92 07/29/20 03:57 24 94 (1) Altered mental status Altered mental status type: unspecified Qualified Code(s): R41.82 - Altered mental status, unspecified
[2020-07-29] MEDS ORDERED: guaiFENesin/DEXTROM SYRUP 200MG/20MG 10ML UDC PO PRN (15:41)
[2020-07-29] MEDS ORDERED: THIAMINE HCL 100 MG TAB PO SCH (16:45)
[2020-07-29] MEDS: FOLIC ACID 1 MG TAB PO SCH (18:01)
[2020-07-29] MEDS: REMDESIVIR 100 MG in SODIUM CHLORIDE 0.9% 230 ML IV SCH (19:47)
[2020-07-29] MEDS: DOXYCYCLINE HYCLATE 100 MG in DEXTROSE 5% 100 ML IV SCH (19:47)
[2020-07-29] MEDS: THIAMINE HCL 500 MG in 0.9 % SODIUM CHLORIDE 100 ML IV SCH (19:47)
[2020-07-29] MEDS: ENOXAPARIN INJ 40 MG/0.4 ML SYR SQ SCH (19:48)
[2020-07-29] MEDS: SODIUM CHLORIDE 0.9% 10ML FLUSH IV SCH (21:00)
[2020-07-30] MEDS: CEFEPIME 2,000 MG in SYRINGE 0 ML IV SCH ×3 (04:07→20:09)
[2020-07-30] MEDS: SODIUM CHLORIDE 0.9% 1000ML 1,000 ML IV SCH (07:32)
[2020-07-30] MEDS: DOXYCYCLINE HYCLATE 100 MG in DEXTROSE 5% 100 ML IV SCH ×2 (07:39→18:33)
[2020-07-30 08:38] LABS: Hematocrit (blood only) 31.3 % (42-52); Hemoglobin 10.5 g/dL (14.0-18.0); Mean Corpuscular Hemoglobin 34.8 pg (25-34); Mean Corpuscular Hgb Conc 33.5 g/dL (32-36); Mean Corpuscular Volume 103.6 fL (80-100); Mean Platelet Volume 11.8 fL (7.4-10.4); Platelet Count 197 K/uL (130-400); RDW Coefficient of Variation 14.3 % (11.5-14.5); RDW Standard Deviation 53.9 fL (36.4-46.3); Red Blood Count 3.02 M/uL (4.7-6.1); White Blood Count 3.18 K/uL (4.8-10.8)
[2020-07-30] MEDS: THIAMINE HCL 500 MG in 0.9 % SODIUM CHLORIDE 100 ML IV SCH ×3 (08:52→20:10)
[2020-07-30] MEDS: dexAMETHasone 6 MG in SYRINGE 0 ML IV SCH (08:53)
[2020-07-30] MEDS: PRIMIDONE 250 MG TAB PO SCH ×2 (08:55→20:11)
[2020-07-30] MEDS: MULTIVITAMIN TAB PO SCH (08:55)
[2020-07-30] MEDS: METOPROLOL SUCC 50MG EXT REL TAB PO SCH (08:55)
[2020-07-30] MEDS: lisinopril 10 MG TAB PO SCH (08:55)
[2020-07-30] MEDS: FOLIC ACID 1 MG TAB PO SCH (08:55)
[2020-07-30] MEDS: TOPIRAMATE 50 MG TAB PO SCH ×2 (08:55→20:11)
[2020-07-30] MEDS: ENOXAPARIN INJ 40 MG/0.4 ML SYR SQ SCH ×2 (08:56→20:10)
[2020-07-30 09:00] LABS: INR 1.1 (0.9-1.1); Prothrombin Time 11.7 Seconds (9.0-12.0)
[2020-07-30] MEDS: CARBIDOPA/LEVODOPA 25/100MG TAB PO SCH ×3 (09:00→20:11)
[2020-07-30 09:12] LABS: D Dimer 30360 ug/L FEU (0-500)
[2020-07-30 09:13] LABS: Albumin Level 1.5 gm/dl (3.4-5.0); BUN Creatinine Ratio 22.3 (10-20); Calcium 7.8 mg/dl (8.5-10.1); Creatinine Clr Calc Pharmacy 73.1 ml/min; Est GFR (African American) 97.9; Est GFR (Non-African American) 84.5; Potassium 3.3 mmol/L (3.5-5.1)
[2020-07-30 09:30] LABS: Albumin Globulin Ratio 0.4 (0.9-2); Beta-Hydroxybutyrate 4.58 mg/dl (0.2-2.81); Ferritin 4420.3 ng/ml (8-388); Globulin 4.1 gm/dl (2.5-4.0); Total Protein 5.6 gm/dl (6.4-8.2)
[2020-07-30] MEDS ORDERED: levoFLOXacin 750 MG TAB PO SCH (11:00)
--- NOTE | 2020-07-30 12:43 | Electrocardiogram Report ---
Test Reason : Blood Pressure : / mmHG Vent. Rate : 114 BPM Atrial Rate : 114 BPM P-R Int : 166 ms QRS Dur : 098 ms QT Int : 334 ms P-R-T Axes : 047 011 061 degrees QTc Int : 460 ms Sinus tachycardia Otherwise normal ECG When compared with ECG of 29-JUL-2020 13:07, No significant change was found Confirmed by Hugh Oliver ([id number]) on 07/30/2020 12:42:31 PM Referred By: REFERRED SELF Confirmed By:Hugh Oliver
--- NOTE | 2020-07-30 12:53 | Pulmonology Progress Note ---
Date of Service July 30, 2020 Assessment & Plan (1) Pneumonia due to COVID-19 virus: CT chest 07/28/2019 personally reviewed: Diffuse groundglass opacities appreciated mostly in the periphery. No dense consolidative process. No mediastinal adenopathy. --Acute hypoxic respiratory failure Secondary to multilobar pneumonia secondary to COVID-19 Ferritin 5456, LDH 598, CRP 31.3, procalcitonin 16 COVID-19 PCR + 07/28/2020, nasal MRSA negative Positive lymphopenia D-dimer 9680 Continue with remdesivir for total of 5 days Continue with dexamethasone for total of 10 days Given the elevated procalcitonin I would agree with antibiotics. Lovenox 40 mg twice daily --Metabolic encephalopathy I think it is multifactorial Patient is a drinker which does go with his underlying pancytopenia macrocytic anemia --> would be case of Warnicke's encephalopathy COVID-19 has been associated with altered mental status as well Steroid encephalopathy is also a possibility Lewby body dementia with history of parkinsons is in the differential. MRI of the brain could be thought of. Sodium, Calcium within normal limit, ammonia 17.9, TSH within normal limit Tylenol negative, UDS was positive for barbiturates, alcohol level was negative Aspiration precautions Plan as per primary team Plan: In/out: 3 L, urine output 975 Patient is +7 L since coming to the hospital. I will give him a dose of Lasix. Follow-up NT BNP Continue to supplement oxygen to keep saturation between 90-92% Could consider high flow if the patient is persistently needing more than 8 L nasal cannula. Overall poor cough and mental status is not a good sign and the patient I would like the patient to be using flutter valve to bring up the phlegm. He usually desaturates when he is not able to bring up the phlegm I was there when that happened. I have personally spent 36 minutes of critical care time in the direct management of this patient. This is a life/limb threatening event. This includes time spent evaluating patient, direct bedside care, chart review, placing orders, interpretation of di agnostic studies, discussion with consultants, patient, and family members, as well as other required patient management activities. This time is exclusive of all separately billable procedures, and teaching time and separate from and in addition to any other critical care service time. Please note the above document was generated using voice recognition software. It may contain grammatical, syntax or spelling errors. (2) Metabolic encephalopathy: (3) Acute respiratory failure with hypoxia: (4) COVID-19: Admission and Anticipated Discharge Date Admission Date: July 28, 2020 Subjective Patient seen and examined at bedside. He is breathing in the mid 20s. Was saturating 94% on 9 L nasal cannula Verbally he does not communicate much. Denies any chest pain. He does state he has cough but is not able to bring it up. Review of Systems Review of Systems: All systems reviewed & are unremarkable except as noted in Subjective and Unobtainable due to cognitive status Physical Exam Physical Exam: Constitutional: No acute distress HEENT: EOMI, PERRLA Respiratory system: Decreased air entry bilaterally, no wheeze, no rhonchi, positive crackles bilateral CVS: S1-S2 positive, no murmurs or gallops, tachycardia Abdomen: Soft, nontender, nondistended, positive bowel sounds x4 Extremities: +2 pulses bilaterally radialis/ dorsalis pedis, no cyanosis, no edema Neuro: Awake alert oriented to self and place Psych: Flat mood and affect G/U: No Kinney Skin: no rashes, warm and dry Lymphatic: no cervical or axillary lymphadenopathy Results & Data Results & Data ([facility]) Vital Signs (Past 12 Hours) Vital Signs Temp Pulse Resp BP Pulse Ox Pulse Ox 07/30/20 12:00 37.7 C H 110 H 28 H 146/91 H 92 07/30/20 08:00 37.6 C H 121 H 16 161/84 H 90 93 07/30/20 05:03 37 C 105 H 22 135/89 92 07/30/20 08:05 07/30/20 08:05 PG Care Time/CCT Total # of Minutes Spent Total Time Spent with Patient: Total time spent is greater than 50% in coordination of care (as documented) at patient's floor/unit and/or counseling patient: Critical Care Time: Yes Total Critical Care Time: 36 Coding Level of Care Code 01778 Subseq Hosp Care Lvl 3 Diagnoses Pneumonia due to COVID-19 virus U07.1; J12.82 Metabolic encephalopathy G93.41 Acute respiratory failure with hypoxia J96.01 COVID-19 U07.1 Additional Codes Critical Care Time - Critical Care Time: Yes ([id number]) Time Spent (min) 36
[2020-07-30] MEDS ORDERED: POTASSIUM CHLORIDE CRTAB 20 MEQ TABCR PO STA (13:02)
[2020-07-30] MEDS ORDERED: FUROSEMIDE 40 MG in SYRINGE 0 ML IV ONE (13:15)
[2020-07-30] MEDS ORDERED: FUROSEMIDE 40 MG/4 ML VIAL IV ONE (13:15)
--- NOTE | 2020-07-30 14:18 | XRay Report ---
SINGLE VIEW CHEST CLINICAL HISTORY: Multifocal pneumonia. FINDINGS: An AP, portable, upright chest radiograph is compared to chest x-ray and chest CT dated 07/28. The cardiomediastinal silhouette is unremarkable. Again seen is multifocal airspace consolidat ion. This is increasingly confluent as compared to 07/28/2020. Trace pleural effusions are suspected. N o pneumothorax is seen. The bony thorax is grossly intact. IMPRESSION: Multifocal airspace consolidation is increasingly confluent as compared to 07/28/2020. ACT 112: Negative or not required by law. Electronically signed by: Micah Rodríguez M.D. 07/30/2020 2:16 PM
[2020-07-30] MEDS: D5W AND 1/2NSS 1,000 ML IV SCH (15:31)
[2020-07-30] MEDS ORDERED: ACETAMINOPHEN 325 MG TAB PO PRN ×2 (20:58→21:00)
[2020-07-30] MEDS ORDERED: ACETAMINOPHEN 325 MG TAB PO STA (20:59)
[2020-07-30] MEDS: REMDESIVIR 100 MG in SODIUM CHLORIDE 0.9% 230 ML IV SCH (21:11)
--- NOTE | 2020-07-30 21:13 | Hospitalist Progress Note ---
Date of Service July 30, 2020 Assessment & Plan (1) Altered mental status: Patient presented to the ED acutely confused Possible due to COVID 19 encephalopathy VS Wernicke encephalopathy Doubt about DT since pt last drink was 2 weeks ago according to family and pt. Ammonia level normal CT head showed no intracranial abnormality No neuro focal deficit on exam Continue IV thiamine Mental status improves (2) Pneumonia due to COVID-19 virus: COVID [address] chest showed moderate multifocal airspace opacities consistent with a viral pneumonia. Lab on admission showed elevated Ferritin 5456, LDH 598, and procalcitonin Received IV dexamethasone 6mg and Levofloxacin and Cefepime in the ER Pt meets criteria for Remdesivir, Decadron and plasma convalescent Pt agreed for the Remdesivir and plasma convalescent, but since he is having a ltered mental status, telephone consent obtained from the Mother (and Kalpana mother caregiver was on the line also). Mother agreed for the plasma convalescent after reviewed side effects such as allergies, rash, fever, bleeding, infection, volume overload. Consent obtained on admission- waiting to administer Continue monitor LFT while on Remdesivir D-Dimer increased to 30K, CRP trending down from 31 to 18-->17, ESR trending down from 90 to 72, Ferritin increased to 4420, LDH increased to 540 Continue broad spectrum abx with Cefepime and Levaquin Will continue monitor anti inflammatory markers such as CRP, ESR, Ferritin and LDH Continue High flow oxygen Lasix 40mg IV given since ProBNP elevated Will check BMP later and if K and creatinine stable, will give an additional 20mg lasix Will continue encourage pt to prone Blood cx showed no growth Pulmonology consulted Acute renal failure Creatinine on admission 1.8 Received IVF, creatinine 0.9 Lisinopril resumed Continue monitor BMP Elevated INR Possible related to COVID 19 vs poor nutrition and alcohol vs liver etiology INR 4.1 on admission, Received Vit K in the ER, repeat INR today 1.1 Elevated INR might have been related to lab error No sign of DIC since no oozing blood on exam, fibrinogen level elevated Peripheral smear showed No significant number of schistocytes or spherocytes is identified. Elevated D-dimer Mostly related to COVID 19 Doubt PE since INR was 4.1 on admission Repeat INR increased from 8K to 9K--> then 30K today NO CTA chest done on admission because pt creatinine was elevate at 1.8 Case discussed with pulmonary that recommended to hold on any CTA chest for PE Will continue monitor closely Hypokalemia Potassium 3.3, replaced Lasix x1 given Will check BMP later Alcohol abuse Alcohol level less than 3 Pt said that he has not had any drink for almost 2 weeks No sign of DT or withdrawn Continue IV thiamine and folic acid Continue monitor closely Elevated AST Possible related to alcohol abuse UDS negative Will complete Acetylcysteine that was ordered in the ER Tylenol level normal AST increased to 80 today Continue monitor LFT Anemia Hgb 10.5 today Iron panel showed normal iron, low TIBC , Elevated ferritin Peripheral smear showed slightly macrocytic appearing erythrocytes without anisopoikilocytosis. Continue monitor CBC Elevated Beta hydroxybutyrate Possible related to alcohol abuse/starvation No anion gap Continue IVF Weakness Mostly related to acute illness and alcohol abuse PT/OT eval Fall precaution DVT px continue Lovenox subq CODE STATUS FULL CODE Admission and Anticipated Discharge Date Admission Date: July 28, 2020 Subjective Pt was seen and examined Lying in bed with no distress Pt said that he feels a little better He continues to required oxygen supplement Denies any chest pain, palpitation and chills Physical Exam Physical Exam: General- No acute distress Head- atraumatic Eyes- PERRL, EOMI, no nystagmus ENT- oropharynx clear Neck- supple, no JVD Lungs- No wheezing Heart- +tachycardia, no murmur Abdomen- normal bowel sounds, soft, nontender Extremities- no calf tenderness Neuro- alert, awake, know place, month, year but not the date, able to follow commands, finger to nose intake, no tremors, No nystagmus, PERRL, EOMI; no facial palsy; no dysarthria Skin- warm & dry Results & Data Results & Data ([facility]) Vital Signs (Past 12 Hours) Vital Signs Temp Pulse Pulse Resp BP Pulse Ox 07/30/20 19:31 38.4 C H 112 H 27 H 142/83 H 94 07/30/20 16:00 37.4 C 112 H 28 H 128/83 95 07/30/20 12:00 37.7 C H 110 H 28 H 146/91 H 92 (1) Altered mental status Altered mental status type: unspecified Qualified Code(s): R41.82 - Altered mental status, unspecified
[2020-07-30 22:28] LABS: BUN Creatinine Ratio 22.1 (10-20); Calcium 7.5 mg/dl (8.5-10.1); Creatinine Clr Calc Pharmacy 74.6 ml/min; Est GFR (African American) 100.4; Est GFR (Non-African American) 86.7; Potassium 3.4 mmol/L (3.5-5.1)
[2020-07-30] MEDS: SODIUM CHLORIDE 0.9% 10ML FLUSH IV SCH (22:53)
[2020-07-31 02:57] LABS: Amobarbital, Urine Conf NEGATIVE ng/mL (<100); Butalbital, Urine NEGATIVE ng/mL (<100); Pentobarbital, Urine Conf NEGATIVE ng/mL (<100); Phenobarbital, Urine >8000 ng/mL (<100); Secobarbital, Urine Conf NEGATIVE ng/mL (<100)
[2020-07-31] MEDS: CEFEPIME 2,000 MG in SYRINGE 0 ML IV SCH ×3 (04:03→20:26)
[2020-07-31] MEDS: DOXYCYCLINE HYCLATE 100 MG in DEXTROSE 5% 100 ML IV SCH ×2 (06:14→18:29)
[2020-07-31 07:15] LABS: Hematocrit (blood only) 30.7 % (42-52); Hemoglobin 10.3 g/dL (14.0-18.0); Mean Corpuscular Hemoglobin 34.7 pg (25-34); Mean Corpuscular Hgb Conc 33.6 g/dL (32-36); Mean Corpuscular Volume 103.4 fL (80-100); Mean Platelet Volume 11.7 fL (7.4-10.4); Platelet Count 212 K/uL (130-400); RDW Coefficient of Variation 14.3 % (11.5-14.5); RDW Standard Deviation 53.9 fL (36.4-46.3); Red Blood Count 2.97 M/uL (4.7-6.1); White Blood Count 3.86 K/uL (4.8-10.8)
[2020-07-31 07:37] LABS: D Dimer 4130 ug/L FEU (0-500)
[2020-07-31 07:49] LABS: Albumin Level 1.6 gm/dl (3.4-5.0); BUN Creatinine Ratio 19.9 (10-20); Calcium 8.3 mg/dl (8.5-10.1); Creatinine Clr Calc Pharmacy 66.9 ml/min; Est GFR (Non-African American) 75.9; Potassium 3.8 mmol/L (3.5-5.1)
[2020-07-31] MEDS ORDERED: POTASSIUM CHLORIDE CRTAB 20 MEQ TABCR PO STA (07:52)
[2020-07-31 08:06] LABS: Albumin Globulin Ratio 0.4 (0.9-2); Beta-Hydroxybutyrate 1.91 mg/dl (0.2-2.81); Bilirubin,Total 1.7 mg/dl (0.2-1); Ferritin 5209.5 ng/ml (8-388); Globulin 4.3 gm/dl (2.5-4.0); Total Protein 5.9 gm/dl (6.4-8.2)
[2020-07-31] MEDS ORDERED: FUROSEMIDE 40 MG in SYRINGE 0 ML IV ONE (08:41)
[2020-07-31] MEDS ORDERED: FUROSEMIDE 40 MG/4 ML VIAL IV ONE ×2 (08:45→14:30)
[2020-07-31] MEDS: dexAMETHasone 6 MG in SYRINGE 0 ML IV SCH (09:02)
[2020-07-31] MEDS: lisinopril 10 MG TAB PO SCH (09:03)
[2020-07-31] MEDS: THIAMINE HCL 500 MG in 0.9 % SODIUM CHLORIDE 100 ML IV SCH ×2 (09:03→13:24)
[2020-07-31] MEDS: FOLIC ACID 1 MG TAB PO SCH (09:04)
[2020-07-31] MEDS: ENOXAPARIN INJ 40 MG/0.4 ML SYR SQ SCH ×2 (09:04→20:27)
[2020-07-31] MEDS: PRIMIDONE 250 MG TAB PO SCH ×2 (09:05→20:28)
[2020-07-31] MEDS: CARBIDOPA/LEVODOPA 25/100MG TAB PO SCH ×3 (09:05→20:27)
[2020-07-31] MEDS: MULTIVITAMIN TAB PO SCH (09:05)
[2020-07-31] MEDS: METOPROLOL SUCC 50MG EXT REL TAB PO SCH (09:06)
[2020-07-31] MEDS: TOPIRAMATE 50 MG TAB PO SCH ×2 (09:06→20:27)
--- NOTE | 2020-07-31 10:01 | Pulmonology Progress Note ---
Date of Service July 31, 2020 Assessment & Plan (1) Pneumonia due to COVID-19 virus: CT chest 07/28/2019 personally reviewed: Diffuse groundglass opacities appreciated mostly in the periphery. No dense consolidative process. No mediastinal adenopathy. --Acute hypoxic respiratory failure Secondary to multilobar pneumonia secondary to COVID-19 Ferritin 5456, LDH 598, CRP 31.3, procalcitonin 16 COVID-19 PCR + 07/28/2020, nasal MRSA negative Positive lymphopenia D-dimer 9680 Continue with remdesivir for total of 5 days Continue with dexamethasone for total of 10 days Given the elevated procalcitonin I would agree with antibiotics. Lovenox 40 mg twice daily --Metabolic encephalopathy I think it is multifactorial Patient is a drinker which does go with his underlying pancytopenia macrocytic anemia --> could be case of Warnicke's encephalopathy COVID-19 has been associated with altered mental status as well Steroid encephalopathy is also a possibility Lewy body dementia with history of parkinsons is in the differential. MRI of the brain could be thought of. Haemophagocytic syndrome is also a possibility given pancytopenia, elevated ferritin, Bilirubin trending up. Sodium, Calcium within normal limit, ammonia 17.9, TSH within normal limit Tylenol negative, UDS was positive for barbiturates, alcohol level was negative Aspiration precautions Plan as per primary team Plan: In/out: +650, urine output 1500 NT BNP was elevated on 07/30/2020 Chest x-ray 07/30/2020 still shows diffuse alveolar infiltrates bilaterally. Patient is +8 L since coming to the hospital. He is incontinent sometimes. Continue to supplement oxygen to keep saturation between 90-92% Could consider high flow if the patient is persistently needing more than 10 L nasal cannula. Recommend giving another dose of Lasix. Keep a close eye on BUN/creatinine Insert Kinney catheter for strict in and out Case was discussed with Dr Lenz and RN Please note the above document was generated using voice recognition software. It may contain grammatical, syntax or spelling errors. (2) Metabolic encephalopathy: (3) Acute respiratory failure with hypoxia: (4) COVID-19: Admission and Anticipated Discharge Date Admission Date: July 28, 2020 Subjective Patient seen and examined at bedside. No acute distress, noted with symptoms overnight Patient was saturating 96% on 10 L nasal cannula at the time of examination. He was breathing in the low 20s. Today he seems to be more alert and more responsive but he still confused to some degree. He was given 40 mg of Lasix yesterday. Denies any chest pain. Is coughing not bringing up much phlegm. Shortness of breath is still the same as per him. Review of Systems Review of Systems: All systems reviewed & are unremarkable except as noted in Subjective and Unobtainable due to cognitive status Physical Exam Physical Exam: Constitutional: No acute distress HEENT: EOMI, PERRLA Respiratory system: Decreased air entry bilaterally, no wheeze, no rhonchi, positive crackles bilateral CVS: S1-S2 positive, no murmurs or gallops, tachycardia Abdomen: Soft, nontender, nondistended, positive bowel sounds x4 Extremities: +2 pulses bilaterally radialis/ dorsalis pedis, no cyanosis, no edema Neuro: Awake alert oriented to self and place Psych: Flat mood and affect G/U: No Kinney Skin: no rashes, warm and dry Lymphatic: no cervical or axillary lymphadenopathy Results & Data Results & Data ([facility]) Vital Signs (Past 12 Hours) Vital Signs Temp Pulse Pulse Resp BP Pulse Ox Pulse Ox 07/31/20 07:57 26 H 96 96 07/31/20 07:37 36.8 C 113 H 12 142/87 H 94 07/31/20 04:01 37.5 C 97 H 23 143/91 H 97 07/31/20 04:00 29 H 89 L 07/31/20 02:29 29 H 92 07/31/20 01:28 102 H 07/31/20 01:09 37.6 C H 07/31/20 00:29 28 H 90 07/30/20 23:33 38 C H 98 H 23 120/78 91 07/31/20 06:30 07/31/20 06:30 PG Care Time/CCT Total # of Minutes Spent Total Time Spent with Patient: Total time spent is greater than 50% in coordi nation of care (as documented) at patient's floor/unit and/or counseling patient: Coding Level of Care Code 86944 Subseq Hosp Care Lvl 3 Diagnoses Pneumonia due to COVID-19 virus U07.1; J12.82 Metabolic encephalopathy G93.41 Acute respiratory failure with hypoxia J96.01 COVID-19 U07.1
--- NOTE | 2020-07-31 13:01 | Hospitalist Progress Note ---
Date of Service July 31, 2020 Assessment & Plan (1) Altered mental status: Metabolic encephalopathy, Patient presented to the ED acutely confused-with some has a resolved now, awake and oriented, answering questions appropriately Possible due to COVID 19 encephalopathy VS Wernicke encephalopathy Doubt about DT since pt last drink was 2 weeks ago according to family and pt. Ammonia level normal CT head showed no intracranial abnormality No neuro focal deficit on exam Patient is continued with thiamine and folic acid supplement (2) Pneumonia due to COVID-19 virus: CT chest showed moderate multifocal airspace opacities consistent with a viral pneumonia. COVID 19 positive Lab on admission showed elevated Ferritin 5456, LDH 598, and procalcitonin Received IV dexamethasone 6mg and Levofloxacin and Cefepime in the ER Remdesivir IV for 5 days, Decadron 6 mg IV daily for 10 days plasma convalescent not be ordered for presentation of volume overload, decompensated CHF Continue monitor LFT while on Remdesivir D-Dimer increased to 30K, CRP trending down from 31 to 18-->17, ESR trending down from 90 to 72, Ferritin increased to 4420, LDH increased to 540 Continue broad spectrum abx with Cefepime and Levaquin Will continue monitor anti inflammatory markers such as CRP, ESR, Ferritin and LDH Appreciate input from pulmonology Acute decompensated CHF: Chest x-ray shows pulmonary congestion with elevated proBNP Given IV Lasix, Discussed with pulmonology, patient's hypoxia with minimal movement possibly secondary to pulmonary congestion, Ordered for 60 mg IV Lasix now, continue Lasix 40 mg IV twice daily Kinney catheter inserted for strict monitoring of I's and O's No updated echo available in the system, Continue diuresis, hold off echo for COVID-19 infection/also will not change any treatment plan Patient will need outpatient cardiology follow-up and echo Acute renal failure Creatinine on admission 1.8 -possibly secondary to dehydration/poor p.o. intake due to acute illness Resolved Received IVF, creatinine 0.9 Lisinopril resumed Diuresis with Lasix as above Elevated INR Possible related to COVID 19 vs poor nutrition and alcohol vs liver etiology INR 4.1 on admission, Received Vit K in the ER, repeat INR 1.1 No sign of DIC since no oozing blood on exam, fibrinogen level elevated Peripheral smear showed No significant number of schistocytes or spherocytes is identified. Elevated D-dimer Mostly related to COVID 19 NO CTA chest done on admission because pt creatinine was elevate at 1.8 Hypokalemia Replaced Will need periodic potassium replacement while getting IV Lasix History of alcohol abuse: Reports drinks beer 89 beers a day Alcohol level less than 3 Pt said that he has not had any drink for almost 2 weeks No sign of DT or withdrawn Continue thiamine and folic acid Continue monitor closely Elevated AST Possible related to alcohol abuse UDS negative Received acetylcysteine in ER, Tylenol level normal Follow LFTs closely as patient is receiving remdesivir Anemia Microcytic anemia possible secondary to alcohol abuse? Iron panel showed normal iron, low TIBC , Elevated ferritin Peripheral smear showed slightly macrocytic appearing erythrocytes without anisopoikilocytosis. Continue monitor CBC Elevated Beta hydroxybutyrate Possible related to alcohol abuse/starvation No anion gap Resolved, normal level now Weakness Mostly related to acute illness and alcohol abuse PT/OT eval Fall precaution DVT px continue Lovenox subq for COVID-19 DVT prophylaxis CODE STATUS FULL CODE Disposition: Continue to monitor in Covid unit Admission and Anticipated Discharge Date Admission Date: July 28, 2020 Subjective Follow-up visit for Covid 19 and pneumonia/acute hypoxemic respiratory failure: Seen in the Covid unit room 204: On 8 L oxygen via nasal cannula hypoxic event/desaturation 88% noted with minimum activity, Patient denies of any orthopnea or shortness of breath or dyspnea on exertion Remains borderline tachycardic, tachypneic respiratory rate variable between 2225. Increased supplemental oxygen to 10 L to keep SPO2 above 90% Has remained afebrile, no cough, denies of any chest pain, chest heaviness, No headache or visual disturbance, Fine tremor noted on outstretched hands Review of Systems Review of Systems: All systems reviewed & are unremarkable except as noted in HPI & below Respiratory: as per Subjective / HPI, + dyspnea, + dyspnea on exertion and + problem reported; no cough Physical Exam Constitutional: WD/WN, vitals as above + ill appearing Eyes: + anicteric sclerae ENMT: external ear and nose normal, oropharynx normal Neck: trachea midline, no thyromegaly Respiratory: Auscultation: + diminished lung sounds, + rales and + wheezes Cardiovascular: Rate/Rhythm: + tachycardic Extremities: no edema Gastrointestinal (Abdomen): Percussion/Palpation: abdomen soft; abdomen nontender Musculoskeletal: no cyanosis or clubbing, extremities motor strength 5/5 Skin: no rashes, warm and dry Neurologic: PERRL, EOMI, accommodation nl, no face palsy, no dysarthria Psychiatric: Orientation: alert and oriented x 3 Affect: + flat affect Results & Data Results & Data ([facility]) Vital Signs (Past 12 Hours) Vital Signs Temp Pulse Pulse Pulse Resp BP Pulse Ox 07/31/20 11:25 37.1 C 110 H 23 133/93 94 07/31/20 07:57 26 H 96 07/31/20 07:37 36.8 C 113 H 12 142/87 H 94 07/31/20 04:01 37.5 C 97 H 23 143/91 H 97 07/31/20 04:00 29 H 89 L 07/31/20 02:29 29 H 92 07/31/20 01:28 102 H 07/31/20 01:09 37.6 C H Pulse Ox 07/31/20 11:25 07/31/20 07:57 96 07/31/20 07:37 07/31/20 04:01 07/31/20 04:00 07/31/20 02:29 07/31/20 01:28 07/31/20 01:09 (1) Altered mental status Altered mental status type: unspecified Qualified Code(s): R41.82 - Altered mental status, unspecified
[2020-07-31] MEDS ORDERED: FUROSEMIDE 60 MG in SYRINGE 0 ML IV STA (14:14)
[2020-07-31] MEDS: D5W AND 1/2NSS 1,000 ML IV SCH (16:05)
[2020-07-31] MEDS: FUROSEMIDE 40 MG in SYRINGE 0 ML IV SCH (20:25)
[2020-07-31] MEDS: THIAMINE HCL IV SCH (20:26)
[2020-07-31] MEDS: SODIUM CHLORIDE 0.9% IV SCH (20:26)
[2020-07-31] MEDS: REMDESIVIR 100 MG in SODIUM CHLORIDE 0.9% 230 ML IV SCH (20:26)
[2020-07-31] MEDS: SODIUM CHLORIDE 0.9% 10ML FLUSH IV SCH (22:08)
[2020-08-01] MEDS: CEFEPIME 2,000 MG in SYRINGE 0 ML IV SCH ×3 (04:02→20:51)
[2020-08-01] MEDS: DOXYCYCLINE HYCLATE 100 MG in DEXTROSE 5% 100 ML IV SCH ×2 (06:23→20:51)
--- NOTE | 2020-08-01 08:14 | Pulmonology Progress Note ---
Date of Service August 01, 2020 Assessment & Plan (1) Pneumonia due to COVID-19 virus: CT chest 07/28/2019 personally reviewed: Diffuse groundglass opacities appreciated mostly in the periphery. No dense consolidative process. No mediastinal adenopathy. --Acute hypoxic respiratory failure Secondary to multilobar pneumonia secondary to COVID-19 Ferritin 5456, LDH 598, CRP 31.3, procalcitonin 16 COVID-19 PCR + 07/28/2020, nasal MRSA negative Positive lymphopenia D-dimer 9680 Continue with remdesivir for total of 5 days Continue with dexamethasone for total of 10 days Given the elevated procalcitonin I would agree with antibiotics. Lovenox 40 mg twice daily --Metabolic encephalopathy I think it is multifactorial Patient is a drinker which does go with his underlying pancytopenia macrocytic anemia --> could be case of Warnicke's encephalopathy COVID-19 has been associated with altered mental status as well Steroid encephalopathy is also a possibility Lewy body dementia with history of parkinsons is in the differential. MRI of the brain could be thought of. Haemophagocytic syndrome is very low on possibility Sodium, Calcium within normal limit, ammonia 17.9, TSH within normal limit Tylenol negative, UDS was positive for barbiturates, alcohol level was negative Aspiration precautions Plan as per primary team Plan: In/out: -1264, urine output 3950 Patient is +7 L since coming to the hospital. Continue to supplement oxygen to keep saturation between 90-92% Please note the above document was generated using voice recognition software. It may contain grammatical, syntax or spelling errors.Any formal questions or concerns about the content, text or information contained within the body of this dictation should be directly addressed to the provider for clarification. (2) Metabolic encephalopathy: (3) Acute respiratory failure with hypoxia: (4) COVID-19: Admission and Anticipated Discharge Date Admission Date: July 28, 2020 Subjective Patient seen and examined at bedside. No acute distress, no adverse events overnight. At the time of examination patient was on 10 L nasal cannula saturating 96% at rest. His respiratory rate was in the high teens to low 20s. Patient was more alert answering questions appropriately. States that he is breathing is getting better. He is coughing but not bringing up any phlegm. Denies any chest pain, no headache, no nausea, no vomiting. Appetite has improved compared to before Review of Systems Review of Systems: All systems reviewed & are unremarkable except as noted in Subjective and Unobtainable due to cognitive status Physical Exam Physical Exam: Constitutional: No acute distress HEENT: EOMI, PERRLA Respiratory system: Decreased air entry bilaterally, no wheeze, no rhonchi, positive crackles bilateral CVS: S1-S2 positive, no murmurs or gallops, tachycardia Abdomen: Soft, nontender, nondistended, positive bowel sounds x4 Extremities: +2 pulses bilaterally radialis/ dorsalis pedis, no cyanosis, no edema Neuro: Awake alert oriented to self and place Psych: Flat mood and affect G/U: No Kinney Skin: no rashes, warm and dry Lymphatic: no cervical or axillary lymphadenopathy Results & Data Results & Data ([facility]) Vital Signs (Past 12 Hours) Vital Signs Temp Pulse Pulse Pulse Resp BP Pulse Ox 08/01/20 07:15 37.3 C 102 H 19 114/73 96 08/01/20 05:00 28 H 94 08/01/20 04:02 37.0 C 105 H 18 110/66 92 08/01/20 03:00 24 95 08/01/20 01:00 25 H 94 07/31/20 23:59 101 H 07/31/20 23:34 37.9 C H 108 H 24 114/68 93 07/31/20 23:00 24 94 07/31/20 06:30 07/31/20 06:30 PG Care Time/CCT Total # of Minutes Spent Total Time Spent with Patient: Total time spent is greater than 50% in coordination of care (as documented) at patient's floor/unit and/or counseling patient: Coding Level of Care Code 55410 Subseq Hosp Care Lvl 3 Diagnoses Pneumonia due to COVID-19 virus U07.1; J12.82 Metabolic encephalopathy G93.41 Acute respiratory failure with hypoxia J96.01 COVID-19 U07.1
[2020-08-01] MEDS: ENOXAPARIN INJ 40 MG/0.4 ML SYR SQ SCH ×2 (09:32→21:07)
[2020-08-01] MEDS: FUROSEMIDE 40 MG in SYRINGE 0 ML IV SCH ×2 (09:32→21:06)
[2020-08-01] MEDS: dexAMETHasone 6 MG in SYRINGE 0 ML IV SCH (09:32)
[2020-08-01] MEDS: METOPROLOL SUCC 50MG EXT REL TAB PO SCH (09:36)
[2020-08-01] MEDS: MULTIVITAMIN TAB PO SCH (09:36)
[2020-08-01] MEDS: TOPIRAMATE 50 MG TAB PO SCH ×2 (09:36→21:08)
[2020-08-01] MEDS: lisinopril 10 MG TAB PO SCH (09:36)
[2020-08-01] MEDS: CARBIDOPA/LEVODOPA 25/100MG TAB PO SCH ×3 (09:37→21:09)
[2020-08-01] MEDS: PRIMIDONE 250 MG TAB PO SCH ×2 (09:37→21:07)
[2020-08-01] MEDS: FOLIC ACID 1 MG TAB PO SCH (09:39)
[2020-08-01] MEDS: D5W AND 1/2NSS 1,000 ML IV SCH (15:56)
--- NOTE | 2020-08-01 19:23 | Hospitalist Progress Note ---
Date of Service August 01, 2020 Assessment & Plan (1) Altered mental status: Metabolic encephalopathy, -resolved , awake and alert , conversing appropriately Patient presented to the ED acutely confused-with some has a resolved now, awake and oriented, answering questions appropriately Possible due to COVID 19 encephalopathy VS Wernicke encephalopathy Doubt about DT since pt last drink was 2 weeks before admission Ammonia level normal CT head showed no intracranial abnormality No neuro focal deficit on exam Patient is continued with thiamine and folic acid supplement hx of ETOH abuse : admits of drinking beer 8-9 can a day counselling provided for ETOH abuse monitor for s/s of ETOH withdrawal (2) Pneumonia due to COVID-19 virus: CT chest showed moderate multifocal airspace opacities consistent with a viral pneumonia. COVID 19 positive Lab on admission showed elevated Ferritin 5456, LDH 598, and procalcitonin Received IV dexamethasone 6mg and Levofloxacin and Cefepime in the ER complete Remdesivir IV for 5 days, Decadron 6 mg IV daily for 10 days plasma convalescent not be ordered for presentation of volume overload, decompensated CHF Continue monitor LFT while on Remdesivir D-Dimer increased to 30K, CRP trending down from 31 to 18-->17, ESR trending down from 90 to 72, Ferritin increased to 4420, LDH increased to 540 on broad spectrum abx with Cefepime and doxycycline Will continue monitor anti inflammatory markers such as CRP, ESR, Ferritin and LDH Appreciate input from pulmonology Acute decompensated CHF: Chest x-ray shows pulmonary congestion with elevated proBNP Given IV Lasix, Discussed with pulmonology, patient's hypoxia with minimal movement possibly secondary to pulmonary congestion, Kinney catheter inserted for strict monitoring of I's and O's No updated echo available in the system, Continue diuresis, hold off echo for COVID-19 infection/also will not change any treatment plan Patient will need outpatient cardiology follow-up and echo Acute renal failure Creatinine on admission 1.8 -possibly secondary to dehydration/poor p.o. intake due to acute illness Resolved Received IVF, creatinine 0.9 Lisinopril resumed Diuresis with Lasix as above Elevated INR Possible related to COVID 19 vs poor nutrition and alcohol vs liver etiology INR 4.1 on admission, Received Vit K in the ER, repeat INR 1.1 No sign of DIC since no oozing blood on exam, fibrinogen level elevated Peripheral smear showed No significant number of schistocytes or spherocytes is identified. Elevated D-dimer Mostly related to COVID 19 NO CTA chest done on admission because pt creatinine was elevate at 1.8 Hypokalemia Replaced Will need periodic potassium replacement while getting IV Lasix History of alcohol abuse: Reports drinks beer 89 beers a day Alcohol level less than 3 Pt said that he has not had any drink for almost 2 weeks No sign of DT or withdrawn Continue thiamine and folic acid Continue monitor closely Elevated AST Possible related to alcohol abuse UDS negative Received acetylcysteine in ER, Tylenol level normal Follow LFTs closely as patient is receiving remdesivir Anemia Microcytic anemia possible secondary to alcohol abuse? Iron panel showed normal iron, low TIBC , Elevated ferritin Peripheral smear showed slightly macrocytic appearing erythrocytes without anisopoikilocytosis. Continue monitor CBC Elevated Beta hydroxybutyrate Possible related to alcohol abuse/starvation No anion gap Resolved, normal level now Weakness Mostly related to acute illness and alcohol abuse PT/OT eval Fall precaution DVT px continue Lovenox subq for COVID-19 DVT prophylaxis CODE STATUS FULL CODE Disposition: Continue to monitor in Covid unit Admission and Anticipated Discharge Date Admission Date: July 28, 2020 Subjective Follow-up visit for Covid 19 and pneumonia/acute hypoxemic respiratory failure: Seen in the Covid unit room 204: still requiring 10 -11 L supplemental O2 via nasal canula pt reports he is feeling better , denies of feeling of SOB has cough with scant sputum has been afebrile no complain of any chest pain, chest heaviness, No headache or visual disturbance, + tremor on hands Review of Systems Review of Systems: All systems reviewed & are unremarkable except as noted in HPI & below Physical Exam Constitutional: WD/WN, vitals as above + ill appearing Eyes: + anicteric sclerae ENMT: external ear and nose normal, oropharynx normal Neck: trachea midline, no thyromegaly Respiratory: Auscultation: + diminished lung sounds, + rales and + wheezes Cardiovascular: Extremities: no edema Gastrointestinal (Abdomen): Percussion/Palpation: abdomen soft; abdomen nontender Musculoskeletal: no cyanosis or clubbing, extremities motor strength 5/5 Skin: no rashes, warm and dry Neurologic: PERRL, EOMI, accommodation nl, no face palsy, no dysarthria Psychiatric: Orientation: alert and oriented x 3 Affect: + flat affect Results & Data Results & Data ([facility]) Vital Signs (Past 12 Hours) Vital Signs Temp Pulse Pulse Resp BP Pulse Ox 08/01/20 19:00 36.8 C 95 H 20 108/68 97 08/01/20 16:00 100 H 08/01/20 15:23 36.5 C 102 H 20 102/64 97 08/01/20 13:00 23 96 08/01/20 11:00 37.0 C 100 H 23 112/71 96 08/01/20 09:00 20 96 08/01/20 08:00 96 H (1) Altered mental status Altered mental status type: unspecified Qualified Code(s): R41.82 - Altered mental status, unspecified
[2020-08-01] MEDS: REMDESIVIR 100 MG in SODIUM CHLORIDE 0.9% 230 ML IV SCH (20:52)
[2020-08-01] MEDS: THIAMINE HCL IV SCH (21:10)
[2020-08-01] MEDS: SODIUM CHLORIDE 0.9% IV SCH (21:10)
[2020-08-01] MEDS: SODIUM CHLORIDE 0.9% 10ML FLUSH IV SCH (22:13)
[2020-08-02] MEDS: CEFEPIME 2,000 MG in SYRINGE 0 ML IV SCH ×2 (04:55→13:33)
[2020-08-02 07:07] LABS: Eosinophils # (auto) 0.02 K/uL (0-0.5); Eosinophils % (auto) 0.5 %; Hematocrit (blood only) 26.7 % (42-52); Hemoglobin 9.1 g/dL (14.0-18.0); Immature Granulocytes # (auto) 0.05 K/uL (0.00-0.02); Immature Granulocytes % (auto) 1.2 %; Lymphocytes # (auto) 0.72 K/uL (1.2-3.4); Lymphocytes % (auto) 16.9 %; Mean Corpuscular Hemoglobin 34.9 pg (25-34); Mean Corpuscular Hgb Conc 34.1 g/dL (32-36); Mean Corpuscular Volume 102.3 fL (80-100); Mean Platelet Volume 12.3 fL (7.4-10.4); Monocytes # (auto) 0.28 K/uL (0.11-0.59); Monocytes % (auto) 6.6 %; Neutrophils # (auto) 3.19 K/uL (1.4-6.5); Neutrophils % (auto) 74.8 %; Platelet Count 185 K/uL (130-400); RDW Coefficient of Variation 14.3 % (11.5-14.5); Red Blood Count 2.61 M/uL (4.7-6.1); White Blood Count 4.26 K/uL (4.8-10.8)
[2020-08-02 07:58] LABS: Albumin Globulin Ratio 0.3 (0.9-2); Albumin Level 1.4 gm/dl (3.4-5.0); BUN Creatinine Ratio 27.9 (10-20); Bilirubin,Total 0.9 mg/dl (0.2-1); Calcium 8.2 mg/dl (8.5-10.1); Est GFR (African American) 48.7; Globulin 4.3 gm/dl (2.5-4.0); Potassium 3.3 mmol/L (3.5-5.1); Total Protein 5.7 gm/dl (6.4-8.2)
[2020-08-02] MEDS: DOXYCYCLINE HYCLATE 100 MG in DEXTROSE 5% 100 ML IV SCH ×2 (08:37→19:45)
[2020-08-02] MEDS: ENOXAPARIN INJ 40 MG/0.4 ML SYR SQ SCH ×2 (08:37→19:51)
[2020-08-02] MEDS: FUROSEMIDE 40 MG in SYRINGE 0 ML IV SCH (08:37)
[2020-08-02] MEDS: dexAMETHasone 6 MG in SYRINGE 0 ML IV SCH (08:38)
[2020-08-02] MEDS: TOPIRAMATE 50 MG TAB PO SCH ×2 (08:38→19:53)
[2020-08-02] MEDS: MULTIVITAMIN TAB PO SCH (08:38)
[2020-08-02] MEDS: METOPROLOL SUCC 50MG EXT REL TAB PO SCH (08:38)
[2020-08-02] MEDS: CARBIDOPA/LEVODOPA 25/100MG TAB PO SCH ×3 (08:38→19:52)
[2020-08-02] MEDS: FOLIC ACID 1 MG TAB PO SCH (08:38)
[2020-08-02] MEDS: lisinopril 10 MG TAB PO SCH (08:38)
--- NOTE | 2020-08-02 08:38 | XRay Report ---
SINGLE VIEW CHEST CLINICAL HISTORY: Multifocal pneumonia. FINDINGS: An AP, portable, upright chest radiograph is compared to study dated 07/30/2020 and correlate d with chest CT dated 07/28/2020. The examination is degraded by portable technique and patient rotatio n. Multifocal airspace consolidation is again seen throughout both lungs. This has not significantly changed from 07/30/2020. Trace pleural effusions are suspected. No pneumothorax is seen. The bony thora x is grossly intact. IMPRESSION: Multifocal airspace consolidation has not significantly changed from 07/30/2020. ACT 112: Negative or not required by law. Electronically signed by: Micah Rodríguez M.D. 08/02/2020 8:36 AM
[2020-08-02] MEDS ORDERED: POTASSIUM CHLORIDE CRTAB 20 MEQ TABCR PO STA (08:39)
[2020-08-02] MEDS: PRIMIDONE 250 MG TAB PO SCH ×2 (08:39→19:52)
--- NOTE | 2020-08-02 08:44 | Communication Note ---
Date of Service: August 02, 2020 A.m. labs reviewed. Acute renal failure: Creatinine bump noted 1.73, was 1.06 on July 31, 2020 Possible secondary to IV diuresis We will hold IV Lasix dose today, Repeat labs in a.m. Avoid NSAIDs Hypokalemia: Due to IV Lasix, diuretics kept on hold due to above. 40 mg p.o. potassium ordered, repeat lab in a.m. Plan of care updated to pulmonology. Lola Lenz MD
--- NOTE | 2020-08-02 15:21 | Pulmonology Progress Note ---
Date of Service August 02, 2020 Assessment & Plan (1) Pneumonia due to COVID-19 virus: CT chest 07/28/2019 personally reviewed: Diffuse groundglass opacities appreciated mostly in the periphery. No dense consolidative process. No mediastinal adenopathy. --Acute hypoxic respiratory failure Secondary to multilobar pneumonia secondary to COVID-19 Ferritin 5456, LDH 598, CRP 31.3, procalcitonin 16 COVID-19 PCR + 07/28/2020, nasal MRSA negative Positive lymphopenia D-dimer 9680 Continue with remdesivir for total of 5 days Continue with dexamethasone for total of 10 days Given the elevated procalcitonin I would agree with antibiotics. Lovenox 40 mg twice daily --Metabolic encephalopathy I think it is multifactorial Patient is a drinker which does go with his underlying pancytopenia macrocytic anemia --> could be case of Warnicke's encephalopathy COVID-19 has been associated with altered mental status as well Steroid encephalopathy is also a possibility Lewy body dementia with history of parkinsons is in the differential. MRI of the brain could be thought of. Haemophagocytic syndrome is very low on possibility Sodium, Calcium within normal limit, ammonia 17.9, TSH within normal limit Tylenol negative, UDS was positive for barbiturates, alcohol level was negative Aspiration precautions Plan as per primary team Plan: In/out: +1126, urine output 400 mL Patient has made significant improvement when it comes to his oxygen requirement. He is currently on 4 L nasal cannula saturating well. He had does have ERICA likely from the diuresis that we are giving him. Would recommend to hold diuresis monitor creatinine function. I will discontinue D5 half as his oral intake has improved compared to before. Continue to supplement oxygen to keep saturation between 90-92% Case was discussed with Dr Lenz and GIL Troncoso No further recommendation from pulmonary perspective. Will sign off. Please recall if needed. Please note the above document was generated using voice recognition software. It may contain grammatical, syntax or spelling errors.Any formal questions or concerns about the content, text or information contained within the body of this dictation should be directly addressed to the provider for clarification. (2) Metabolic encephalopathy: (3) Acute respiratory failure with hypoxia: (4) COVID-19: Admission and Anticipated Discharge Date Admission Date: July 28, 2020 Subjective Patient seen and examined at bedside. No acute distress, no adverse events overnight. Patient was saturating 96% on 6 L nasal cannula at the time of examination He was more alert. Answering all questions appropriately. Denied any chest pain. He has been using flutter valve that he says is not bringing up any phlegm. Fair appetite. He says he does not like the food. Review of Systems Review of Systems: All systems reviewed & are unremarkable except as noted in Subjective Physical Exam Physical Exam: Constitutional: No acute distress HEENT: EOMI, PERRLA Respiratory system: Decreased air entry bilaterally, no wheeze, no rhonchi, positive crackles bilateral CVS: S1-S2 positive, no murmurs or gallops, tachycardia Abdomen: Soft, nontender, nondistended, positive bowel sounds x4 Extremities: +2 pulses bilaterally radialis/ dorsalis pedis, no cyanosis, no edema Neuro: Awake alert oriented to self and place Psych: Flat mood and affect G/U: No Kinney Skin: no rashes, warm and dry Lymphatic: no cervical or axillary lymphadenopathy Results & Data Results & Data ([facility]) Vital Signs (Past 12 Hours) Vital Signs Temp Pulse Resp BP Pulse Ox 08/02/20 13:00 17 93 08/02/20 11:58 36.6 C 91 H 17 111/69 94 08/02/20 11:00 96 08/02/20 09:00 94 08/02/20 05:00 21 96 08/02/20 04:06 36.8 C 89 21 105/68 98 08/02/20 06:17 08/02/20 06:17 PG Care Time/CCT Total # of Minutes Spent Total Time Spent with Patient: Total time spent is greater than 50% in coordination of care (as documented) at patient's floor/unit and/or counseling patient: Coding Level of Care Code 82882 Subseq Hosp Care Lvl 3 Diagnoses Pneumonia due to COVID-19 virus U07.1; J12.82 Metabolic encephalopathy G93.41 Acute respiratory failure with hypoxia J96.01 COVID-19 U07.1
[2020-08-02] MEDS: D5W AND 1/2NSS 1,000 ML IV SCH (16:52)
--- NOTE | 2020-08-02 18:39 | Hospitalist Progress Note ---
Date of Service August 02, 2020 Assessment & Plan (1) Altered mental status: Metabolic encephalopathy, -resolved , awake and alert , conversing appropriately Patient presented to the ED acutely confused-with some has a resolved now, awake and oriented, answering questions appropriately Possible due to COVID 19 encephalopathy VS Wernicke encephalopathy Ammonia level normal CT head showed no intracranial abnormality No neuro focal deficit on exam mental status improved to baseline Patient is continued with thiamine and folic acid supplement hx of ETOH abuse : admits of drinking beer 8-9 can a day counselling provided for ETOH abuse no s/s of ETOH withdrawal Tremor : chronic resting hand tremor pt is diagnosed with possible Parkinson disease worsening of tremor noted due to acute illness /weakness cont levodopa /carbidopa improvement of symptoms noted pt reports difficulty holding spoon-making meals difficult , will ask OT to provide specialized spoon (2) Pneumonia due to COVID-19 virus: CT chest showed moderate multifocal airspace opacities consistent with a viral pneumonia. COVID 19 positive Lab on admission showed elevated Ferritin 5456, LDH 598, and procalcitonin Received IV dexamethasone 6mg and Levofloxacin and Cefepime in the ER complete Remdesivir IV for 5 days, dc Decadron as respiratory status improved abx adjusted , dc cefepime PO doxycycline Appreciate input from pulmonology will need 2 step test to assess home 02 needs prior to dc Acute decompensated CHF/diastolic dysfunction : Chest x-ray shows pulmonary congestion with elevated proBNP Given IV Lasix, Discussed with pulmonology, patient's hypoxia with minimal movement possibly secondary to pulmonary congestion, No updated echo available in the system, Continue diuresis, hold off echo for COVID-19 infection/also will not change any treatment plan Patient will need outpatient cardiology follow-up and echo respiratory status /hypoxia improved with diuresis initially was requiring 10 L 02 now on 2 L 02 via nasal canula Acute renal failure due to diuresis hold Lasix and ACEI follow BMP Hypokalemia Replaced History of alcohol abuse: Reports drinks beer 89 beers a day Alcohol level less than 3 Pt said that he has not had any drink for almost 2 weeks No sign of DT or withdrawn Continue thiamine and folic acid Continue monitor closely Elevated AST Possible related to alcohol abuse UDS negative Received acetylcysteine in ER, Tylenol level normal Follow LFTs closely as patient is receiving remdesivir Anemia Microcytic anemia possible secondary to alcohol abuse? Iron panel showed normal iron, low TIBC , Elevated ferritin Peripheral smear showed slightly macrocytic appearing erythrocytes without anisopoikilocytosis. Continue monitor CBC Elevated Beta hydroxybutyrate Possible related to alcohol abuse/starvation No anion gap Resolved, normal level now Weakness Mostly related to acute illness and alcohol abuse PT/OT eval Fall precaution DVT px continue Lovenox subq for COVID-19 DVT prophylaxis CODE STATUS FULL CODE Disposition: discharge to home in next 1-2 days Admission and Anticipated Discharge Date Admission Date: July 28, 2020 Subjective Follow-up visit for Covid 19 and pneumonia/acute hypoxemic respiratory failure: Seen in the Covid unit room 204: respiratory status much improved on 2 L 02 via nasal canula no complain of Sob , cough has improved no HINTON or orthopnea vitals stable -d/c tele Review of Systems Review of Systems: All systems reviewed & are unremarkable except as noted in HPI & below Physical Exam Constitutional: WD/WN, vitals as above Eyes: + anicteric sclerae ENMT: external ear and nose normal, oropharynx normal Neck: trachea midline, no thyromegaly Respiratory: Auscultation: + diminished lung sounds Cardiovascular: RRR, no murmur, no edema Extremities: no edema Gastrointestinal (Abdomen): Percussion/Palpation: abdomen soft; abdomen nontender Musculoskeletal: no cyanosis or clubbing, extremities motor strength 5/5 Skin: no rashes, warm and dry Neurologic: PERRL, EOMI, accommodation nl, no face palsy, no dysarthria Psychiatric: Orientation: alert and oriented x 3 Affect: + flat affect Results & Data Results & Data ([facility]) Vital Signs (Past 12 Hours) Vital Signs Temp Pulse Pulse Resp BP Pulse Ox 08/02/20 16:00 88 08/02/20 15:44 36.5 C 88 19 106/69 99 08/02/20 13:00 17 93 08/02/20 11:58 36.6 C 91 H 17 111/69 94 08/02/20 11:00 96 08/02/20 09:00 94 (1) Altered mental status Altered mental status type: unspecified Qualified Code(s): R41.82 - Altered mental status, unspecified
[2020-08-02] MEDS: THIAMINE HCL IV SCH (22:04)
[2020-08-02] MEDS: SODIUM CHLORIDE 0.9% IV SCH (22:04)
[2020-08-02] MEDS ORDERED: Nursing to Pharmacy Communication SCH (22:30)
[2020-08-03] MEDS ORDERED: CEFEPIME 2,000 MG in SYRINGE 0 ML IV SCH
[2020-08-03 07:17] LABS: BUN Creatinine Ratio 32.7 (10-20); Calcium 8.4 mg/dl (8.5-10.1); Creatinine Clr Calc Pharmacy 39.4 ml/min; Est GFR (African American) 46.4; Potassium 4.1 mmol/L (3.5-5.1)
[2020-08-03] MEDS: THIAMINE HCL 100 MG TAB PO SCH (09:39)
[2020-08-03] MEDS: DOXYCYCLINE HYCLATE 100 MG CAP PO SCH ×2 (09:39→20:20)
[2020-08-03] MEDS: ASPIRIN 81 MG ECTAB PO SCH (09:39)
[2020-08-03] MEDS: ENOXAPARIN INJ 40 MG/0.4 ML SYR SQ SCH ×2 (10:37→20:21)
[2020-08-03] MEDS: MULTIVITAMIN TAB PO SCH (10:38)
[2020-08-03] MEDS: TOPIRAMATE 50 MG TAB PO SCH ×2 (10:38→20:21)
[2020-08-03] MEDS: PRIMIDONE 250 MG TAB PO SCH ×2 (10:38→20:20)
[2020-08-03] MEDS: CARBIDOPA/LEVODOPA 25/100MG TAB PO SCH ×3 (10:38→20:21)
[2020-08-03] MEDS: METOPROLOL SUCC 50MG EXT REL TAB PO SCH (10:38)
[2020-08-03] MEDS: FOLIC ACID 1 MG TAB PO SCH (10:38)
[2020-08-03] MEDS ORDERED: LACTATED RINGER'S 1,000 ML IV SCH (11:45)
--- NOTE | 2020-08-03 16:29 | Hospitalist Progress Note ---
Date of Service August 03, 2020 Assessment & Plan (1) Altered mental status: Metabolic encephalopathy, Resolved, -resolved , awake and alert , conversing appropriately Patient presented to the ED acutely confused-with some has a resolved now, awake and oriented, answering questions appropriately Possible due to COVID 19 encephalopathy VS Wernicke encephalopathy Tremor : Symptom has improved markedly chronic resting hand tremor pt is diagnosed with possible Parkinson disease worsening of tremor noted due to acute illness /weakness cont levodopa /carbidopa (2) Pneumonia due to COVID-19 virus: CT chest showed moderate multifocal airspace opacities consistent with a viral pneumonia. COVID 19 positive Lab on admission showed elevated Ferritin 5456, LDH 598, and procalcitonin Received IV dexamethasone 6mg and Levofloxacin and Cefepime in the ER complete Remdesivir IV for 5 days, dc Decadron as respiratory status improved abx adjusted , dc cefepime PO doxycycline Appreciate input from pulmonology stable from respiratory stand point, will need 2 step test to assess home 02 needs prior to dc Acute decompensated CHF/diastolic dysfunction : Chest x-ray shows pulmonary congestion with elevated proBNP Given IV Lasix, Discussed with pulmonology, patient's hypoxia with minimal movement possibly secondary to pulmonary congestion, No updated echo available in the system, Continue diuresis, hold off echo for COVID-19 infection/also will not change any treatment plan Patient will need outpatient cardiology follow-up and echo respiratory status /hypoxia improved with diuresis initially was requiring 10 L 02 now on 2 L 02 via nasal canula Acute renal failure due to diuresis Creatinine 1.8, Lasix and JUANJOSE inhibitor kept on hold Follow BMP Hypokalemia Replaced History of alcohol abuse: Reports drinks beer 89 beers a day Alcohol level less than 3 Pt said that he has not had any drink for almost 2 weeks No sign of DT or withdrawn Continue thiamine and folic acid Weakness Symptom has improved Mostly related to acute illness PT/OT eval Fall precaution DVT px continue Lovenox subq for COVID-19 DVT prophylaxis CODE STATUS FULL CODE Disposition: discharge to home in next 1-2 days 2 Step exercise prior to discharge to assess home oxygen needs. Admission and Anticipated Discharge Date Admission Date: July 28, 2020 Subjective Follow-up visit for Covid 19 and pneumonia/acute hypoxemic respiratory failure: Patient continues to feel well, still hypoxic, on 4 L oxygen, It is denies of any dyspnea on exertion no cough no fever or chills Review of Systems Review of Systems: All systems reviewed & are unremarkable except as noted in HPI & below Physical Exam Constitutional: WD/WN, vitals as above + ill appearing Eyes: + anicteric sclerae ENMT: external ear and nose normal, oropharynx normal Neck: trachea midline, no thyromegaly Respiratory: Auscultation: + diminished lung sounds Cardiovascular: RRR, no murmur, no edema Rate/Rhythm: + tachycardic Extremities: no edema Gastrointestinal (Abdomen): Percussion/Palpation: abdomen soft; abdomen nonten jenny Musculoskeletal: no cyanosis or clubbing, extremities motor strength 5/5 Skin: no rashes, warm and dry Neurologic: PERRL, EOMI, accommodation nl, no face palsy, no dysarthria Psychiatric: Orientation: alert and oriented x 3 Affect: + flat affect Results & Data Results & Data ([facility]) Vital Signs (Past 12 Hours) Vital Signs Temp Pulse Resp BP Pulse Ox Pulse Ox 08/03/20 15:38 37.1 C 100 H 18 104/68 96 08/03/20 13:00 95 08/03/20 11:00 94 08/03/20 08:00 95 08/03/20 07:00 92 08/03/20 06:21 36.7 C 101 H 21 112/68 92 (1) Altered mental status Altered mental status type: unspecified Qualified Code(s): R41.82 - Altered mental status, unspecified
[2020-08-04 06:54] LABS: BUN Creatinine Ratio 38.8 (10-20); Calcium 8.3 mg/dl (8.5-10.1); Creatinine Clr Calc Pharmacy 44.3 ml/min; Est GFR (African American) 53.5; Est GFR (Non-African American) 46.1; Potassium 4.4 mmol/L (3.5-5.1)
[2020-08-04] MEDS: TOPIRAMATE 50 MG TAB PO SCH ×2 (07:41→20:26)
[2020-08-04] MEDS: PRIMIDONE 250 MG TAB PO SCH ×2 (07:41→20:26)
[2020-08-04] MEDS: ENOXAPARIN INJ 40 MG/0.4 ML SYR SQ SCH ×2 (07:41→20:26)
[2020-08-04] MEDS: DOXYCYCLINE HYCLATE 100 MG CAP PO SCH ×2 (07:41→20:27)
[2020-08-04] MEDS: FOLIC ACID 1 MG TAB PO SCH (07:42)
[2020-08-04] MEDS: CARBIDOPA/LEVODOPA 25/100MG TAB PO SCH ×3 (07:42→20:26)
[2020-08-04] MEDS: MULTIVITAMIN TAB PO SCH (07:42)
[2020-08-04] MEDS: METOPROLOL SUCC 50MG EXT REL TAB PO SCH (07:42)
[2020-08-04] MEDS: ASPIRIN 81 MG ECTAB PO SCH (07:42)
[2020-08-04] MEDS: THIAMINE HCL 100 MG TAB PO SCH (07:42)
--- NOTE | 2020-08-04 10:51 | Communication Note ---
Date of Service: August 04, 2020 Acute hypoxemic respiratory failure secondary to COVID-19 pneumonia Updated by respiratory therapist: Patient did very poorly on two-step exercise, at rest in room oxygen saturation maintained to 90-91%, As patient sat on the edge of the bed, saturation dropped down to 80s He was placed on 4 L oxygen by nasal cannula which led to SPO2 improved of 90% As patient stood up, significant hypoxemia-noted with oxygen saturation dropped to 70%-while on supplemental O2 found to be very weak, significant tremors/shaking needed maximum assist to stand up O2 increased to 6 L via nasal cannula respiratory therapist, patient was placed back in bed, SPO2 remains in 92%. Ordered ABG, chest x-ray Creatinine mildly improved to 1.60, Will give 20 mg of IV Lasix x1 now repeat BMP in a.m.(possible underlying CHF with diastolic dysfunction) Will discuss with pulmonology regarding ongoing hypoxia/respiratory failure Patient will need continued hospital stay for respiratory failure /severe deconditioning Lola Lenz MD
[2020-08-04] MEDS ORDERED: FUROSEMIDE 20 MG in SYRINGE 0 ML IV ONE (10:52)
[2020-08-04] MEDS ORDERED: FUROSEMIDE 40 MG/4 ML VIAL IV ONE (11:00)
[2020-08-04 11:35] LABS: Allen Test Pos (Pos); Base Excess ABG -2.8 mEq/L (-9-1.8); HCO3 ABG 21 mmol/L (19-24); PCO2 ABG 32 mmHg (35-46); PO2 ABG 92 mmHg (80-95); pH ABG 7.44 (7.35-7.45)
--- NOTE | 2020-08-04 12:20 | XRay Report ---
XR chest 1V portable CLINICAL HISTORY: SOB /hypoxia COMPARISON STUDY: 08/02/2020 FINDINGS: The cardiac and mediastinal contours remain stable. There is slight improvement in the mult ifocal pulmonary airspace opacities indicative of a multifocal pneumonia. There are no significant pl eural effusions.[ IMPRESSION: Multifocal pulmonary airspace opacities slightly improved when compared with the prior st udy. ACT 112: Negative or not required by law. Electronically signed by: Brian Toscano M.D. 08/04/2020 12:18 PM
--- NOTE | 2020-08-04 13:22 | Communication Note ---
Date of Service: August 04, 2020 ABG: Shows pH 7.4(normal), PCO2 32/O2 92/bicarb 21/oxygen saturation 97% on 2 L. Portable chest x-ray shows multifocal pulmonary airspace opacities slightly improved when compared to prior study of 08/02/2020 Patient does not appear to have progression of COVID-19 pneumonia ABG shows no hypoxemia Possible poor performance since two-step exercise secondary to significant deconditioning/weakness continue PT OT Patient may benefit with rehab on discharge from hospital will update case management Lola Lenz MD
--- NOTE | 2020-08-04 22:53 | Hospitalist Progress Note ---
Date of Service August 04, 2020 Assessment & Plan (1) Altered mental status: ACUTE HYPOXEMIC RESPIRATORY FAILURE : due to COVID 19 pneumonia : Patient did very poorly on two-step exercise, at rest in room oxygen saturation maintained to 90-91%, As patient sat on the edge of the bed, saturation dropped down to 80s He was placed on 4 L oxygen by nasal cannula which led to SPO2 improved of 90% As patient stood up, significant hypoxemia-noted with oxygen saturation dropped to 70%-while on supplemental O2 found to be very weak, significant tremors/shaking needed maximum assist to stand up O2 increased to 6 L via nasal cannula respiratory therapist, patient was placed back in bed, SPO2 remains in 92%. ABG: Shows pH 7.4(normal), PCO2 32/O2 92/bicarb 21/oxygen saturation 97% on 2 L. Portable chest x-ray shows multifocal pulmonary airspace opacities slightly improved when compared to prior study of 08/02/2020 Patient does not appear to have progression of COVID-19 pneumonia ABG shows no hypoxemia Possible poor performance since two-step exercise secondary to significant d econditioning/weakness Metabolic encephalopathy, Resolved, -resolved , awake and alert , conversing appropriately Patient presented to the ED acutely confused-with some has a resolved now, awake and oriented, answering questions appropriately Possible due to COVID 19 encephalopathy VS Wernicke encephalopathy (2) Pneumonia due to COVID-19 virus: treated with IV remdesivir and dexamethasone resp failure as outlined above Acute decompensated CHF/diastolic dysfunction : diuresed with Lasix No updated echo available in the system, Continue diuresis, hold off echo for COVID-19 infection/also will not change any treatment plan Patient will need outpatient cardiology follow-up and echo Acute renal failure due to diuresis follow renal function Hypokalemia Replaced History of alcohol abuse: Reports drinks beer 89 beers a day Alcohol level less than 3 Pt said that he has not had any drink for almost 2 weeks No sign of DT or withdrawn Continue thiamine and folic acid DVT px continue Lovenox subq for COVID-19 DVT prophylaxis CODE STATUS FULL CODE Disposition: continue PT OT Patient will benefit with rehab on discharge from hospital Admission and Anticipated Discharge Date Admission Date: July 28, 2020 Subjective Follow-up visit for Covid 19 and pneumonia/acute hypoxemic respiratory failure: continues to be very hypoxic , desaturation noted with minimum activity requiring 6 L 02 significant deconditioning has been afebrile , feels very weak and fatigued will need continued hospital stay for resp failure Review of Systems Review of Systems: All systems reviewed & are unremarkable except as noted in HPI & below Constitutional: + fatigue, + weakness and + anorexia; no fever and no chills Respiratory: + cough, + dyspnea and + dyspnea on exertion Cardiovascular: + palpitations and + lightheadedness Physical Exam Constitutional: WD/WN, vitals as above + ill appearing Eyes: + anicteric sclerae ENMT: external ear and nose normal, oropharynx normal Neck: trachea midline, no thyromegaly Respiratory: Auscultation: + diminished lung sounds Cardiovascular: RRR, no murmur, no edema Rate/Rhythm: + tachycardic Extremities: no edema Gastrointestinal (Abdomen): Percussion/Palpation: abdomen soft; abdomen nontender Musculoskeletal: no cyanosis or clubbing, extremities motor strength 5/5 Skin: no rashes, warm and dry Neurologic: PERRL, EOMI, accommodation nl, no face palsy, no dysarthria Psychiatric: Orientation: alert and oriented x 3 Affect: + flat affect Results & Data Results & Data ([facility]) Vital Signs (Past 12 Hours) Vital Signs Temp Pulse Resp BP Pulse Ox 08/04/20 21:00 22 95 08/04/20 19:00 22 95 08/04/20 15:42 36.6 C 100 H 22 97/61 L 92 08/04/20 15:00 92 08/04/20 13:00 93 08/04/20 11:00 16 95 (1) Altered mental status Altered mental status type: unspecified Qualified Code(s): R41.82 - Altered m ental status, unspecified
[2020-08-05 06:59] LABS: BUN Creatinine Ratio 40.5 (10-20); Calcium 8.5 mg/dl (8.5-10.1); Creatinine Clr Calc Pharmacy 54.1 ml/min; Est GFR (African American) 68.1; Est GFR (Non-African American) 58.8; Potassium 4.1 mmol/L (3.5-5.1)
[2020-08-05] MEDS: PRIMIDONE 250 MG TAB PO SCH ×2 (08:27→20:58)
[2020-08-05] MEDS: FOLIC ACID 1 MG TAB PO SCH (08:27)
[2020-08-05] MEDS: METOPROLOL SUCC 50MG EXT REL TAB PO SCH (08:27)
[2020-08-05] MEDS: ASPIRIN 81 MG ECTAB PO SCH (08:27)
[2020-08-05] MEDS: DOXYCYCLINE HYCLATE 100 MG CAP PO SCH ×2 (08:27→20:58)
[2020-08-05] MEDS: MULTIVITAMIN TAB PO SCH (08:27)
[2020-08-05] MEDS: CARBIDOPA/LEVODOPA 25/100MG TAB PO SCH ×3 (08:27→20:58)
[2020-08-05] MEDS: THIAMINE HCL 100 MG TAB PO SCH (08:27)
[2020-08-05] MEDS: ENOXAPARIN INJ 40 MG/0.4 ML SYR SQ SCH ×2 (08:28→20:56)
[2020-08-05] MEDS: TOPIRAMATE 50 MG TAB PO SCH ×2 (08:28→20:58)
[2020-08-05] MEDS ORDERED: THIAMINE HCL 100 MG in SYRINGE 9 ML IV SCH (21:00)
--- NOTE | 2020-08-05 21:48 | Hospitalist Progress Note ---
Date of Service August 05, 2020 Assessment & Plan (1) Altered mental status: ACUTE HYPOXEMIC RESPIRATORY FAILURE : due to COVID 19 pneumonia : Patient did very poorly on two-step exercise, at rest in room oxygen saturation maintained to 90-91%, As patient sat on the edge of the bed, saturation dropped down to 80s He was placed on 4 L oxygen by nasal cannula which led to SPO2 improved of 90% Significant deconditioning noted, PT OT evaluation appreciated recommends rehab Will need supplemental oxygen on discharge as well Metabolic encephalopathy, Resolved, -resolved , awake and alert , conversing appropriately Patient presented to the ED acutely confused-with some has a resolved now, awake and oriented, answering questions appropriately Possible due to COVID 19 encephalopathy VS Wernicke encephalopathy (2) Pneumonia due to COVID-19 virus: treated with IV remdesivir and dexamethasone resp failure as outlined above Acute decompensated CHF/diastolic dysfunction : diuresed with Lasix No updated echo available in the system, Continue diuresis, hold off echo for COVID-19 infection/also will not change any treatment plan Patient will need outpatient cardiology follow-up and echo Acute renal failure due to diuresis follow renal function Hypokalemia Replaced History of alcohol abuse: Reports drinks beer 89 beers a day Alcohol level less than 3 Pt said that he has not had any drink for almost 2 weeks No sign of DT or withdrawn Continue thiamine and folic acid DVT px continue Lovenox subq for COVID-19 DVT prophylaxis CODE STATUS FULL CODE Disposition: PT OT eval appreciated, recommends inpatient rehab Social service following for discharge planning. Admission and Anticipated Discharge Date Admission Date: July 28, 2020 Subjective Follow-up visit for Covid 19 and pneumonia/acute hypoxemic respiratory failure: Remains hypoxic, no orthopnea no shortness of breath Significant deconditioning, noted secondary to acute viral illness PT OT, will need rehab Review of Systems Review of Systems: All systems reviewed & are unremarkable except as noted in HPI & below Physical Exam Constitutional: WD/WN, vitals as above + ill appearing Eyes: + anicteric sclerae ENMT: external ear and nose normal, oropharynx normal Neck: trachea midline, no thyromegaly Respiratory: Auscultation: + diminished lung sounds Cardiovascular: RRR, no murmur, no edema Rate/Rhythm: + tachycardic Extremities: no edema Gastrointestinal (Abdomen): Percussion/Palpation: abdomen soft; abdomen nontender Musculoskeletal: no cyanosis or clubbing, extremities motor strength 5/5 Skin: no rashes, warm and dry Neurologic: PERRL, EOMI, accommodation nl, no face palsy, no dysarthria Psychiatric: Orientation: alert and oriented x 3 Affect: + flat affect Results & Data Results & Data ([facility]) Vital Signs (Past 12 Hours) Vital Signs Temp Pulse Resp BP Pulse Ox Pulse Ox Pulse Ox 08/05/20 16:00 18 08/05/20 15:14 36.6 C 95 H 18 109/71 96 08/05/20 13:00 20 08/05/20 11:00 18 08/05/20 10:10 95 98 Pulse Ox 08/05/20 16:00 08/05/20 15:14 08/05/20 13:00 08/05/20 11:00 08/05/20 10:10 85 L (1) Altered mental status Altered mental status type: unspecified Qualified Code(s): R41.82 - Altered mental status, unspecified
[2020-08-06] MEDS: ENOXAPARIN INJ 40 MG/0.4 ML SYR SQ SCH ×2 (08:26→20:54)
[2020-08-06] MEDS: DOXYCYCLINE HYCLATE 100 MG CAP PO SCH ×2 (08:27→20:55)
[2020-08-06] MEDS: THIAMINE HCL 100 MG TAB PO SCH (08:27)
[2020-08-06] MEDS: FOLIC ACID 1 MG TAB PO SCH (08:27)
[2020-08-06] MEDS: TOPIRAMATE 50 MG TAB PO SCH ×2 (08:27→20:55)
[2020-08-06] MEDS: MULTIVITAMIN TAB PO SCH (08:27)
[2020-08-06] MEDS: METOPROLOL SUCC 50MG EXT REL TAB PO SCH (08:27)
[2020-08-06] MEDS: ASPIRIN 81 MG ECTAB PO SCH (08:27)
[2020-08-06] MEDS: PRIMIDONE 250 MG TAB PO SCH ×2 (08:27→20:55)
[2020-08-06] MEDS: CARBIDOPA/LEVODOPA 25/100MG TAB PO SCH ×3 (08:27→20:56)
--- NOTE | 2020-08-06 19:54 | Hospitalist Progress Note ---
Date of Service August 06, 2020 Assessment & Plan (1) Altered mental status: ACUTE HYPOXEMIC RESPIRATORY FAILURE : due to COVID 19 pneumonia : Patient did very poorly on two-step exercise, at rest in room oxygen saturation maintained to 90-91%, As patient sat on the edge of the bed, saturation dropped down to 80s He was placed on 4 L oxygen by nasal cannula which led to SPO2 improved of 90% Significant deconditioning noted, PT OT evaluation appreciated recommends rehab Will need supplemental oxygen on discharge as well Metabolic encephalopathy, Resolved, -resolved , awake and alert , conversing appropriately Patient presented to the ED acutely confused-with some has a resolved now, awake and oriented, answering questions appropriately Possible due to COVID 19 encephalopathy VS Wernicke encephalopathy (2) Pneumonia due to COVID-19 virus: treated with IV remdesivir and dexamethasone resp failure as outlined above Acute decompensated CHF/diastolic dysfunction : diuresed with Lasix No updated echo available in the system, Continue diuresis, hold off echo for COVID-19 infection/also will not change any treatment plan Patient will need outpatient cardiology follow-up and echo Acute renal failure due to diuresis follow renal function Hypokalemia Replaced History of alcohol abuse: Reports drinks beer 89 beers a day Alcohol level less than 3 Pt said that he has not had any drink for almost 2 weeks No sign of DT or withdrawn Continue thiamine and folic acid DVT px continue Lovenox subq for COVID-19 DVT prophylaxis CODE STATUS FULL CODE Disposition: PT OT eval appreciated, recommends inpatient rehab Social service following for discharge planning.-pt adamant about returning home has care givers Admission and Anticipated Discharge Date Admission Date: July 28, 2020 Subjective Follow-up visit for Covid 19 and pneumonia/acute hypoxemic respiratory failure: Remains hypoxic, no orthopnea no shortness of breath Significant deconditioning, noted secondary to acute viral illness PT/OT recommends rehab Physical Exam Constitutional: WD/WN, vitals as above + ill appearing Eyes: + anicteric sclerae ENMT: external ear and nose normal, oropharynx normal Neck: trachea midline, no thyromegaly Respiratory: Auscultation: + diminished lung sounds Cardiovascular: RRR, no murmur, no edema Rate/Rhythm: + tachycardic Extremities: no edema Gastrointestinal (Abdomen): Percussion/Palpation: abdomen soft; abdomen nontender Musculoskeletal: no cyanosis or clubbing, extremities motor strength 5/5 Skin: no rashes, warm and dry Neurologic: PERRL, EOMI, accommodation nl, no face palsy, no dysarthria Psychiatric: Orientation: alert and oriented x 3 Affect: + flat affect Results & Data Results & Data ([facility]) Vital Signs (Past 12 Hours) Vital Signs Temp Pulse Resp BP Pulse Ox Pulse Ox 08/06/20 19:30 98 98 08/06/20 15:35 36.8 C 98 H 18 132/73 96 (1) Altered mental status Altered mental status type: unspecified Qualified Code(s): R41.82 - Altered mental status, unspecified
[2020-08-07] MEDS: ENOXAPARIN INJ 40 MG/0.4 ML SYR SQ SCH ×2 (07:39→20:39)
[2020-08-07] MEDS: CARBIDOPA/LEVODOPA 25/100MG TAB PO SCH ×3 (07:39→20:39)
[2020-08-07] MEDS: ASPIRIN 81 MG ECTAB PO SCH (07:40)
[2020-08-07] MEDS: MULTIVITAMIN TAB PO SCH (07:41)
[2020-08-07] MEDS: METOPROLOL SUCC 50MG EXT REL TAB PO SCH (07:41)
[2020-08-07] MEDS: FOLIC ACID 1 MG TAB PO SCH (07:41)
[2020-08-07] MEDS: PRIMIDONE 250 MG TAB PO SCH ×2 (07:41→20:38)
[2020-08-07] MEDS: THIAMINE HCL 100 MG TAB PO SCH (07:42)
[2020-08-07] MEDS: TOPIRAMATE 50 MG TAB PO SCH ×2 (07:42→20:39)
[2020-08-07] MEDS: DOXYCYCLINE HYCLATE 100 MG CAP PO SCH ×2 (07:42→20:39)
--- NOTE | 2020-08-07 18:13 | Hospitalist Progress Note ---
Date of Service August 07, 2020 Assessment & Plan (1) Altered mental status: Acute respiratory failure with hypoxia COVID-[address] CHEST:Moderate multifocal airspace opacities consistent with a viral pneumonia. Completed dexamethasone, remdesivir course Currently saturating 94% on room air Supplemental oxygen as needed May need 2 step prior to discharge Continue PT OT for general deconditioning Acute Metabolic encephalopathy D:Possible due to COVID 19 encephalopathy VS Wernicke encephalopathy Resolved Continue thiamine, folic acid (2) Pneumonia due to COVID-19 virus: Treatment as above PER PRIOR HOSPITALIST Acute decompensated CHF/diastolic dysfunction : diuresed with Lasix Patient will need outpatient cardiology follow-up and echo Acute renal failure due to diuresis Resolved Monitor renal function Hypokalemia Replace as needed H/O Alcohol abuse: Reports drinks beer 89 beers a day Alcohol level less than 3 No sign of DT or withdrawn Continue thiamine and folic acid DVT Px: Lovenox SQ CODE STATUS FULL CODE Disposition: May need Rehab placement PT OT prior to discharge Admission and Anticipated Discharge Date Admission Date: July 28, 2020 Subjective Patient is seen and examined at bedside Reports generalized weakness and tiredness with activity especially Denies chest pain, shortness of breath, dizziness, nausea, abdominal pain No significant cough Saturating 94% on room air Review of Systems Review of Systems: All systems reviewed & are unremarkable except as noted in HPI & below Physical Exam Physical Exam: Physical Exam: Vitals signs as noted above General Appearance:Thin, no apparent distress Head: normocephalic, Atraumatic Eyes: normal inspection, EOMI, PERRL Neck: supple, Trachea midline Respiratory/Chest: Normal breath sounds, + Basal Crackles Cardiovascular: S1, S2, No murmur Abdomen/GI:Soft, Non tender, Bowel sounds present Extremities/Musculoskelatal:normal inspection, no edema Neurologic/Psych:AAOX3, grossly no focal neurological deficits Skin: normal color, warm Results & Data Results & Data ([facility]) Vital Signs (Past 12 Hours) Vital Signs Temp Pulse Resp BP BP Pulse Ox Pulse Ox 08/07/20 15:57 16 94 08/07/20 15:06 37.3 C 99 H 18 126/77 93 08/07/20 14:44 92 08/07/20 09:00 95 08/07/20 07:20 37.3 C 95 H 18 126/77 93 (1) Altered mental status Altered mental status type: unspecified Qualified Code(s): R41.82 - Altered mental status, unspecified
[2020-08-08 07:34] LABS: BUN Creatinine Ratio 20.8 (10-20); Creatinine Clr Calc Pharmacy 76.2 ml/min; Est GFR (African American) 103.1; Est GFR (Non-African American) 88.9; Magnesium 1.4 mg/dl (1.8-2.4); Potassium 4.3 mmol/L (3.5-5.1)
[2020-08-08] MEDS: DOXYCYCLINE HYCLATE 100 MG CAP PO SCH ×2 (09:55→20:24)
[2020-08-08] MEDS: CARBIDOPA/LEVODOPA 25/100MG TAB PO SCH ×3 (09:55→20:24)
[2020-08-08] MEDS: TOPIRAMATE 50 MG TAB PO SCH ×2 (09:55→20:24)
[2020-08-08] MEDS: MULTIVITAMIN TAB PO SCH (09:56)
[2020-08-08] MEDS: PRIMIDONE 250 MG TAB PO SCH ×2 (09:56→20:24)
[2020-08-08] MEDS: ENOXAPARIN INJ 40 MG/0.4 ML SYR SQ SCH ×2 (09:56→20:24)
[2020-08-08] MEDS: ASPIRIN 81 MG ECTAB PO SCH (09:56)
[2020-08-08] MEDS: FOLIC ACID 1 MG TAB PO SCH (09:56)
[2020-08-08] MEDS: THIAMINE HCL 100 MG TAB PO SCH (09:56)
[2020-08-08] MEDS: METOPROLOL SUCC 50MG EXT REL TAB PO SCH (09:56)
[2020-08-08] MEDS: MAGNESIUM SULFATE / D5W 1 GM/100 ML BAG IV SCH ×2 (12:49→14:08)
--- NOTE | 2020-08-08 13:53 | Hospitalist Progress Note ---
Date of Service August 08, 2020 Assessment & Plan (1) Altered mental status: Acute respiratory failure with hypoxia COVID-[address] CHEST:Moderate multifocal airspace opacities consistent with a viral pneumonia. Completed dexamethasone, remdesivir course Weaned off of supplemental oxygen Patient prefers to be discharged home with home health We will obtain 2 step:pending Acute Metabolic encephalopathy D:Possible due to COVID 19 encephalopathy VS Wernicke encephalopathy Resolved Continue thiamine, folic acid (2) Pneumonia due to COVID-19 virus: Treatment as above Hypomagnesemia Replete electrolytes as needed PER PRIOR HOSPITALIST Acute decompensated CHF/diastolic dysfunction : diuresed with Lasix Patient will need outpatient cardiology follow-up and echo Acute renal failure due to diuresis Resolved Monitor renal function Hypokalemia Replace as needed H/O Alcohol abuse: Reports drinks beer 89 beers a day Alcohol level less than 3 No sign of DT or withdrawn Continue thiamine and folic acid Counseled to quit drinking DVT Px: Lovenox SQ CODE STATUS FULL CODE Disposition: Home with Home Health Admission and Anticipated Discharge Date Admission Date: July 28, 2020 Subjective Patient is seen and examined at bedside States feeling much better today Offers no complaints Prefers to be discharged home with home health Denies chest pain, shortness of breath, dizziness, nausea, abdominal pain, cough Plan to do 2 step today Saturating well on room air Review of Systems Review of Systems: All systems reviewed & are unremarkable except as noted in HPI & below Physical Exam Physical Exam: Physical Exam: Vitals signs as noted above General Appearance:Thin, no apparent distress Head: normocephalic, Atraumatic Eyes: normal inspection, EOMI, PERRL Neck: supple, Trachea midline Respiratory/Chest: Normal breath sounds, + CTA Cardiovascular: S1, S2, No murmur Abdomen/GI:Soft, Non tender, Bowel sounds present Extremities/Musculoskelatal:normal inspection, no edema Neurologic/Psych:AAOX3, grossly no focal neurological deficits Skin: normal color, warm Results & Data Results & Data ([facility]) Vital Signs (Past 12 Hours) Vital Signs Temp Pulse Resp BP Pulse Ox 08/08/20 08:15 16 08/08/20 07:27 37.0 C 100 H 19 120/76 93 Laboratory Results [facility] 08/08/20 06:26 Sodium 136 Potassium 4.3 Chloride 105 Carbon Dioxide 24 BUN 19 H Creatinine 0.93 Glucose 92 Calcium 9.0 (1) Altered mental status Altered mental status type: unspecified Qualified Code(s): R41.82 - Altered mental status, unspecified
[2020-08-09 07:08] LABS: BUN Creatinine Ratio 17.1 (10-20); Calcium 8.2 mg/dl (8.5-10.1); Creatinine Clr Calc Pharmacy 81.5 ml/min; Est GFR (African American) 108.7; Est GFR (Non-African American) 93.8; Magnesium 1.8 mg/dl (1.8-2.4); Potassium 4.1 mmol/L (3.5-5.1)
--- NOTE | 2020-08-09 07:59 | XRay Report ---
XR chest 1V portable HISTORY: 59 years-old Male COVID acute shortness of breath. COVID Positive. COMPARISON: Chest radiograph 08/04/2020, chest CT 07/28/2020 TECHNIQUE: Portable AP view of the chest FINDINGS: Cardiomediastinal and hilar silhouettes are unchanged. No pneumothorax, large pleural effusion or ove rt pulmonary edema. Patchy irregular airspace opacities are again noted bilaterally and appear genera lly stable from comparison. Degenerative changes of the shoulders and spine. IMPRESSION: Stable appearance of the bilateral airspace opacities suggestive of multifocal pneumonia. ACT 112: Negative or not required by law. The above report was generated using voice recognition software. It may contain grammatical, syntax o r spelling errors. Electronically signed by: Richard Contreras M.D. 08/09/2020 7:58 AM
[2020-08-09] MEDS: TOPIRAMATE 50 MG TAB PO SCH ×2 (08:19→20:21)
[2020-08-09] MEDS: PRIMIDONE 250 MG TAB PO SCH ×2 (08:19→20:21)
[2020-08-09] MEDS: CARBIDOPA/LEVODOPA 25/100MG TAB PO SCH ×3 (08:19→20:21)
[2020-08-09] MEDS: DOXYCYCLINE HYCLATE 100 MG CAP PO SCH ×2 (08:19→20:21)
[2020-08-09] MEDS: ASPIRIN 81 MG ECTAB PO SCH (08:20)
[2020-08-09] MEDS: FOLIC ACID 1 MG TAB PO SCH (08:20)
[2020-08-09] MEDS: THIAMINE HCL 100 MG TAB PO SCH (08:20)
[2020-08-09] MEDS: ENOXAPARIN INJ 40 MG/0.4 ML SYR SQ SCH ×2 (08:20→20:21)
[2020-08-09] MEDS: METOPROLOL SUCC 50MG EXT REL TAB PO SCH (08:20)
[2020-08-09] MEDS: MULTIVITAMIN TAB PO SCH (08:20)
--- NOTE | 2020-08-09 17:44 | Hospitalist Progress Note ---
Date of Service August 09, 2020 Assessment & Plan (1) Altered mental status: Acute respiratory failure with hypoxia COVID-[address] CHEST:Moderate multifocal airspace opacities consistent with a viral pneumonia. Completed dexamethasone, remdesivir course Weaned off of supplemental oxygen Patient prefers to be discharged home with home health CXR today shows stable appearance of the bilateral airspace opacities suggestive of multifocal pneumonia. Will repeat 2 step in AM if planned to go home Preferably may benefit Rehab placement Acute Metabolic encephalopathy D:Possible due to COVID 19 encephalopathy VS Wernicke encephalopathy Resolved Continue thiamine, folic acid (2) Pneumonia due to COVID-19 virus: Treatment as above Hypomagnesemia Replete electrolytes as needed PER PRIOR HOSPITALIST Acute decompensated CHF/diastolic dysfunction : diuresed with Lasix Patient will need outpatient cardiology follow-up and echo Acute renal failure due to diuresis Resolved Monitor renal function Hypokalemia Replace as needed H/O Alcohol abuse: Reports drinks beer 89 beers a day Alcohol level less than 3 No sign of DT or withdrawn Continue thiamine and folic acid Counseled to quit drinking DVT Px: Lovenox SQ CODE STATUS FULL CODE Disposition: Home with Home Health Admission and Anticipated Discharge Date Admission Date: July 28, 2020 Subjective Patient is seen and examined at bedside Offers no complaints today Chest x-ray showed stable appearance of bilateral airspace opacities Patient requiring 2 L of oxygen to maintain saturations Denies chest pain, dyspnea, dizziness, nausea, abdominal pain, cough Will repeat 2 step in AM Review of Systems Review of Systems: All systems reviewed & are unremarkable except as noted in HPI & below Physical Exam Physical Exam: Physical Exam: Vitals signs as noted above General Appearance:Thin, no apparent distress Head: normocephalic, Atraumatic Eyes: normal inspection, EOMI, PERRL Neck: supple, Trachea midline Respiratory/Chest: Normal breath sounds, + CTA Cardiovascular: S1, S2, No murmur Abdomen/GI:Soft, Non tender, Bowel sounds present Extremities/Musculoskelatal:normal inspection, no edema Neurologic/Psych:AAOX3, grossly no focal neurological deficits Skin: normal color, warm Results & Data Results & Data ([facility]) Vital Signs (Past 12 Hours) Vital Signs Temp Pulse Resp BP Pulse Ox Pulse Ox 08/09/20 15:35 93 08/09/20 15:24 36.9 C 85 18 128/79 93 08/09/20 15:12 98 08/09/20 13:02 96 08/09/20 09:45 96 08/09/20 07:04 36.7 C 88 18 130/78 98 Laboratory Results [facility] 08/09/20 06:14 Sodium 136 Potassium 4.1 Chloride 106 Carbon Dioxide 26 BUN 15 Creatinine 0.87 Glucose 109 H Calcium 8.2 L (1) Altered mental status Altered mental status type: unspecified Qualified Code(s): R41.82 - Altered mental status, unspecified
[2020-08-10] MEDS: ASPIRIN 81 MG ECTAB PO SCH (09:41)
[2020-08-10] MEDS: FOLIC ACID 1 MG TAB PO SCH (09:41)
[2020-08-10] MEDS: ENOXAPARIN INJ 40 MG/0.4 ML SYR SQ SCH (09:41)
[2020-08-10] MEDS: PRIMIDONE 250 MG TAB PO SCH ×2 (09:43→20:44)
[2020-08-10] MEDS: MULTIVITAMIN TAB PO SCH (09:43)
[2020-08-10] MEDS: CARBIDOPA/LEVODOPA 25/100MG TAB PO SCH ×3 (09:44→20:44)
[2020-08-10] MEDS: TOPIRAMATE 50 MG TAB PO SCH ×2 (09:45→20:44)
[2020-08-10] MEDS: METOPROLOL SUCC 50MG EXT REL TAB PO SCH (09:45)
[2020-08-10] MEDS: THIAMINE HCL 100 MG TAB PO SCH (09:46)
[2020-08-10 09:59] LABS: D Dimer 1180 ug/L FEU (0-500)
[2020-08-10] MEDS: MAGNESIUM SULFATE / D5W 1 GM/100 ML BAG IV SCH ×2 (10:12→12:47)
[2020-08-10] MEDS ORDERED: SODIUM CHLORIDE 0.9% 1000ML 1,000 ML IV ONE (10:48)
[2020-08-10] MEDS ORDERED: OPTIRAY 320 125ml IV ONE (12:20)
--- NOTE | 2020-08-10 12:35 | CT Scan Report ---
CT ANGIOGRAPHY OF THE CHEST, PULMONARY EMBOLUS PROTOCOL CLINICAL HISTORY: Shortness of breath. Hypoxia. Covid. COMPARISON STUDY: Chest CT July 28, 2020. Chest radiograph August 09, 2020. TECHNIQUE: Following IV administration of 120 mL of Optiray-320, helical axial images of the chest we re obtained utilizing the pulmonary embolus protocol. Maximal intensity projections and sagittal and coronal reformats were viewed on an independent 3D workstation. IV contrast was administered withou t complication. Automated exposure control was utilized for the study. A dose lowering technique wa s utilized adhering to the principles of ALARA. CT DOSE: 245.04 mGy.cm FINDINGS: Note is made of a segmental pulmonary embolus within the anterior segment of the right upp er lobe shown on axial image 155 of 278. No central pulmonary emboli are present. Mild cardiomegaly i s noted. Calcified thoracic lymph nodes are noted. These indicate previous granulomatous process. The re are trace bilateral pleural effusions. There is no pneumothorax. Central airways are patent. Exten sive multifocal consolidation is noted. Extensive airspace opacity is similar to CT of the right thir d 2020 however the opacity has increased in density and is now more consolidative. Bony thorax is unr emarkable. There calcified cannula was within the spleen. IMPRESSION: 1. Segmental pulmonary embolus within the anterior segment of the right upper lobe. 2. Extensive multifocal consolidation within the lungs consistent with an infectious process. 3. Trace bilateral pleural effusions. ACT 112: Negative or not required by law. Electronically signed by: Ernie Kemp M.D. 08/10/2020 12:34 PM
--- NOTE | 2020-08-10 15:17 | Hospitalist Progress Note ---
Date of Service August 10, 2020 Assessment & Plan (1) Altered mental status: Acute respiratory failure with hypoxia COVID-[address] CHEST:Moderate multifocal airspace opacities consistent with a viral pneumonia. Completed dexamethasone, remdesivir course Wean off of supplemental oxygen as able May need 2 step if prior to discharge Acute Pulmonary Embolism Likely secondary to above -CTA:Segmental pulmonary embolus within the anterior segment of the right upper lobe. Extensive multifocal consolidation within the lungs consistent with an infectious process. Trace bilateral pleural effusions. -Started on Therapeutic Lovenox -Continue supplemental oxygen Acute Metabolic encephalopathy D:Possible due to COVID 19 encephalopathy VS Wernicke encephalopathy Resolved Continue thiamine, folic acid (2) Pneumonia due to COVID-19 virus: Treatment as above PER PRIOR HOSPITALIST Acute decompensated CHF/diastolic dysfunction : diuresed with Lasix Patient will need outpatient cardiology follow-up and echo Acute renal failure due to diuresis Resolved Monitor renal function Hypokalemia Hypomagnesemia Replace electrolytes as needed Monitor H/O Alcohol abuse: Reports drinks beer 89 beers a day Alcohol level less than 3 No sign of DT or withdrawn Continue thiamine and folic acid Counseled to quit drinking DVT Px: Lovenox SQ CODE STATUS FULL CODE Disposition: Home with Home Health as able Admission and Anticipated Discharge Date Admission Date: July 28, 2020 Subjective Patient is seen and examined at bedside Offers no complaints today Chest x-ray showed stable appearance of bilateral airspace opacities Patient requiring 2 L of oxygen to maintain saturations Denies chest pain, dyspnea, dizziness, nausea, abdominal pain, cough Will repeat 2 step in AM Review of Systems Review of Systems: All systems reviewed & are unremarkable except as noted in HPI & below Physical Exam Physical Exam: Physical Exam: Vitals signs as noted above General Appearance:Thin, no apparent distress Head: normocephalic, Atraumatic Eyes: normal inspection, EOMI, PERRL Neck: supple, Trachea midline Respiratory/Chest: Normal breath sounds, + CTA Cardiovascular: S1, S2, No murmur Abdomen/GI:Soft, Non tender, Bowel sounds present Extremities/Musculoskelatal:normal inspection, no edema Neurologic/Psych:AAOX3, grossly no focal neurological deficits Skin: normal color, warm Results & Data Results & Data ([facility]) Vital Signs (Past 12 Hours) Vital Signs Temp Pulse Resp BP 08/10/20 07:34 36.4 C L 92 H 16 149/81 H (1) Altered mental status Altered mental status type: unspecified Qualified Code(s): R41.82 - Altered mental status, unspecified
[2020-08-10] MEDS: ENOXAPARIN 80 MG/0.8 ML SYR SC SCH (20:44)
[2020-08-11] MEDS: ASPIRIN 81 MG ECTAB PO SCH (07:25)
[2020-08-11] MEDS: FOLIC ACID 1 MG TAB PO SCH (07:26)
[2020-08-11] MEDS: ENOXAPARIN 80 MG/0.8 ML SYR SC SCH ×2 (07:27→20:25)
[2020-08-11] MEDS: MAGNESIUM OXIDE 400 MG TAB PO SCH (07:30)
[2020-08-11] MEDS: MULTIVITAMIN TAB PO SCH (07:31)
[2020-08-11] MEDS: CARBIDOPA/LEVODOPA 25/100MG TAB PO SCH ×3 (07:32→20:26)
[2020-08-11] MEDS: PRIMIDONE 250 MG TAB PO SCH ×2 (07:32→20:26)
[2020-08-11] MEDS: METOPROLOL SUCC 50MG EXT REL TAB PO SCH (07:33)
[2020-08-11] MEDS: TOPIRAMATE 50 MG TAB PO SCH ×2 (07:35→20:26)
[2020-08-11] MEDS: THIAMINE HCL 100 MG TAB PO SCH (07:36)
[2020-08-11 08:32] LABS: BUN Creatinine Ratio 13.9 (10-20); Calcium 8.4 mg/dl (8.5-10.1); Creatinine Clr Calc Pharmacy 90.6 ml/min; Est GFR (African American) 114.9; Est GFR (Non-African American) 99.2; Magnesium 1.7 mg/dl (1.8-2.4); Potassium 4.4 mmol/L (3.5-5.1)
[2020-08-11] MEDS ORDERED: MAGNESIUM SULFATE / D5W 1 GM/100 ML BAG IV ONE (10:15)
[2020-08-11] MEDS: WARFARIN SOD 5 MG TAB PO SCH (16:07)
--- NOTE | 2020-08-11 16:52 | Hospitalist Progress Note ---
Date of Service August 11, 2020 Assessment & Plan (1) Altered mental status: Acute respiratory failure with hypoxia COVID-[address] CHEST:Moderate multifocal airspace opacities consistent with a viral pneumonia. Completed dexamethasone, remdesivir course Wean off of supplemental oxygen as able Will need 2 step prior to discharge Acute Pulmonary Embolism Likely secondary to above -CTA:Segmental pulmonary embolus within the anterior segment of the right upper lobe. Extensive multifocal consolidation within the lungs consistent with an infectious process. Trace bilateral pleural effusions. 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 Acute decompensated CHF/diastolic dysfunction : diuresed with Lasix Patient will need outpatient cardiology follow-up and echo Acute renal failure due to diuresis Resolved Monitor renal function Hypokalemia Hypomagnesemia Replace electrolytes as needed Monitor H/O Alcohol abuse: Reports drinks beer 89 beers a day Alcohol level less than 3 No sign of DT or withdrawn Continue thiamine and folic acid Counseled to quit drinking DVT Px: Lovenox SQ CODE STATUS FULL CODE Disposition: Home with Home Health as able Admission and Anticipated Discharge Date Admission Date: July 28, 2020 Subjective Patient is seen and examined at bedside Noticed some blood when blew his nose this morning Otherwise no acute bleeding issues States feeling better Denies chest pain, dyspnea, dizziness, nausea, abdominal pain, cough Minimal persistent cough Review of Systems Review of Systems: All systems reviewed & are unremarkable except as noted in HPI & below Physical Exam Physical Exam: Physical Exam: Vitals signs as noted above General Appearance:Thin, no apparent distress Head: normocephalic, Atraumatic Eyes: normal inspection, EOMI, PERRL Neck: supple, Trachea midline Respiratory/Chest: Normal breath sounds, minimal basal crackles Cardiovascular: S1, S2, No murmur Abdomen/GI:Soft, Non tender, Bowel sounds present Extremities/Musculoskelatal:normal inspection, no edema Neurologic/Psych:AAOX3, grossly no focal neurological deficits Skin: normal color, warm Results & Data Results & Data ([facility]) Vital Signs (Past 12 Hours) Vital Signs Temp Pulse Resp BP Pulse Ox 08/11/20 15:49 36.8 C 18 163/93 H 89 L 08/11/20 07:52 36.6 C 81 18 135/82 3 L 08/11/20 05:00 18 95 Laboratory Results BMP 08/11/20 07:12 Sodium 139 Potassium 4.4 Chloride 110 H Carbon Dioxide 24 BUN 11 Creatinine 0.76 Glucose 92 Calcium 8.4 L (1) Altered mental status Altered mental status type: unspecified Qualified Code(s): R41.82 - Altered mental status, unspecified
[2020-08-12 08:04] LABS: Hemoglobin 9.8 g/dL (14.0-18.0); Mean Corpuscular Hgb Conc 32.7 g/dL (32-36); Mean Corpuscular Volume 104.2 fL (80-100); Mean Platelet Volume 9.8 fL (7.4-10.4); Platelet Count 336 K/uL (130-400); RDW Coefficient of Variation 13.9 % (11.5-14.5); RDW Standard Deviation 52.4 fL (36.4-46.3); Red Blood Count 2.88 M/uL (4.7-6.1); White Blood Count 5.85 K/uL (4.8-10.8)
[2020-08-12 08:18] LABS: INR 1.5 (0.9-1.1); Prothrombin Time 15.1 Seconds (9.0-12.0)
[2020-08-12] MEDS: ASPIRIN 81 MG ECTAB PO SCH (08:23)
[2020-08-12] MEDS: ENOXAPARIN 80 MG/0.8 ML SYR SC SCH ×2 (08:24→16:46)
[2020-08-12] MEDS: FOLIC ACID 1 MG TAB PO SCH (08:24)
[2020-08-12] MEDS: MAGNESIUM OXIDE 400 MG TAB PO SCH (08:25)
[2020-08-12] MEDS: CARBIDOPA/LEVODOPA 25/100MG TAB PO SCH ×2 (08:26→13:46)
[2020-08-12] MEDS: MULTIVITAMIN TAB PO SCH (08:26)
[2020-08-12] MEDS: PRIMIDONE 250 MG TAB PO SCH (08:26)
[2020-08-12] MEDS: TOPIRAMATE 50 MG TAB PO SCH (08:27)
[2020-08-12] MEDS: METOPROLOL SUCC 50MG EXT REL TAB PO SCH (08:27)
[2020-08-12] MEDS: THIAMINE HCL 100 MG TAB PO SCH (08:31)
[2020-08-12 08:39] LABS: BUN Creatinine Ratio 6.8 (10-20); Calcium 9.1 mg/dl (8.5-10.1); Creatinine Clr Calc Pharmacy 88.3 ml/min; Est GFR (African American) 113.7; Est GFR (Non-African American) 98.1; Magnesium 1.7 mg/dl (1.8-2.4); Potassium 4.3 mmol/L (3.5-5.1)
[2020-08-12] MEDS ORDERED: LOVENOX TEACHING KIT PRN (11:30)
--- NOTE | 2020-08-12 13:33 | Hospitalist Progress Note ---
Date of Service August 12, 2020 Assessment & Plan (1) Altered mental status: Acute respiratory failure with hypoxia COVID-[address] CHEST:Moderate multifocal airspace opacities consistent with a viral pneumonia. Completed dexamethasone, remdesivir course 2 step: Requires 2 liters of supplemental oxygen with activity Acute Pulmonary Embolism Likely secondary to above -CTA:Segmental pulmonary embolus within the anterior segment of the right upper lobe. Extensive multifocal consolidation within the lungs consistent with an infectious process. Trace bilateral pleural effusions. 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 PRIOR HOSPITALIST Acute decompensated CHF/diastolic dysfunction : diuresed with Lasix Patient will need outpatient cardiology follow-up and echo Acute renal failure due to diuresis Resolved Monitor renal function Hypokalemia Hypomagnesemia Replace electrolytes as needed Monitor H/O Alcohol abuse: Reports drinks beer 89 beers a day Alcohol level less than 3 No sign of DT or withdrawn Continue thiamine and folic acid Counseled to quit drinking DVT Px: Lovenox SQ CODE STATUS FULL CODE Disposition: Home with Home Health as able Admission and Anticipated Discharge Date Admission Date: July 28, 2020 Subjective Patient is seen and examined at bedside No new complaints Had 2 step earlier today No bleeding issues Denies chest pain, dyspnea, dizziness, nausea, abdominal pain, cough Plan to discharge home today Review of Systems Review of Systems: All systems reviewed & are unremarkable except as noted in HPI & below Physical Exam Physical Exam: Physical Exam: Vitals signs as noted above General Appearance:Thin, no apparent distress Head: normocephalic, Atraumatic Eyes: normal inspection, EOMI, PERRL Neck: supple, Trachea midline Respiratory/Chest: Normal breath sounds, CTA Cardiovascular: S1, S2, No murmur Abdomen/GI:Soft, Non tender, Bowel sounds present Extremities/Musculoskelatal:normal inspection, no edema Neurologic/Psych:AAOX3, grossly no focal neurological deficits Skin: normal color, warm Results & Data Results & Data ([facility]) Vital Signs (Past 12 Hours) Vital Signs Temp Pulse Pulse Pulse Pulse Pulse Resp 08/12/20 12:06 113 H 117 H 110 H 78 08/12/20 07:41 36.6 C 80 20 08/12/20 03:00 18 Resp Resp Resp Resp BP Pulse Ox Pulse Ox 08/12/20 12:06 22 24 22 16 95 08/12/20 07:41 160/87 H 95 08/12/20 03:00 96 Pulse Ox Pulse Ox Pulse Ox 08/12/20 12:06 87 L 93 94 08/12/20 07:41 08/12/20 03:00 Laboratory Results Short CBC 08/12/20 Range/Units 07:48 WBC 5.85 (4.8-10.8) K/uL Hgb 9.8 L (14.0-18.0) g/dL Hct 30.0 L (42-52) % Plt Count 336 (130-400) K/uL BMP 08/12/20 07:48 Sodium 138 Potassium 4.3 Chloride 106 Carbon Dioxide 25 BUN 5 L D Creatinine 0.78 Glucose 95 Calcium 9.1 (1) Altered mental status Altered mental status type: unspecified Qualified Code(s): R41.82 - Altered mental status, unspecified
--- NOTE | 2020-08-12 13:59 | Discharge Summary ---
Date of Service August 12, 2020 Admission HPI Per Admitting Provider Patient is a 59 yo male who presented to the ED via personal vehicle, his brother dropped him off with acute confusion. The patient is unable to give any history because of current mental state. His outpatient records were accessed, and his mother's name was in the emergency contact. His mother, Rhonda Macias was contacted. She has a caregiver with her daily, Kalpana who answered most of the questions asked. The patient's mother and Kalpana state that the patient started increasing his alcohol consumption about 3-4 weeks ago and was drinking about a 6-pack or more per day. He abruptly stopped (from what they know) about 1 1/2 weeks ago. He also stopped chewing tobacco about 1 week ago. He was diagnosed with COVID as an outpatient. His test was done on Wednesday and came back this weekend. 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 Kalpana noted that the patient has been having increased problems with his balance at home x 1 week. The patient does have resting tremor, and outpatient records note that he was being worked up for "parkinsonism" but he never completed the workup. His medication list was reviewed with Kalpana as well. The patient does take Tylenol at home regularly. 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 Since presentation to the ED, the patient was confirmed to have COVID-19 infection. Labs revealed: WBC 3.95 slightly decreased. Hgb 11.7 with macrocytosis ESR >90 CRP 31.3 Ferritin 5456 LDH 598 INR 4.7 (though patient is not on Coumadin) Mild LFT elevation with AST 97, ALT 7, Alk Phos & total bili within norm Procalcitonin elevated at 16 Patient also noted to have ERICA with Creatinine of 1.8. Baseline is 0.9 as outpatient. No history of renal disease in chart. Potassium 3.2, Sodium 132, Magnesium elevated at 3.3 Tylenol level pending. SaO2 upon presentation was 85%. Slightly hypotensive upon arrival, but Vitals are now stable. Patient is on O2 via nasal cannula. Admission Exam Per Admitting Provider General- No acute distress Head- atraumatic Eyes- PERRL, EOMI, no nystagmus ENT- oropharynx clear Neck- supple, no JVD Lungs- No wheezing Heart- regular rhythm; no murmur Abdomen- normal bowel sounds, soft, nontender Extremities- no calf tenderness Neuro- alert, awake, know place, month, year but not the date, able to follow commands, finger to nose intake, no tremors, No nystagmus, PERRL, EOMI; no facial palsy; no dysarthria Skin- warm & dry Principal Diagnosis COVID 19 PNEUMONIA ACUTE HYPOXEMIC RESPIRATORY FAILURE ACUTE CHF WITH DIASTOLIC DYSFUNCTION HYPOMAGNESEMIA ACUTE PULMONARY EMBOLISM Discharge Data Allergies Allergy/AdvReac Type Severity Reaction Status Date / Time levofloxacin Allergy Red Verified 08/02/20 14:05 swollen, itchy arm at IV site to shoulder Consultations 07/28/20 15:44 ED Decision to Admit Stat 07/28/20 19:33 Consult Case Management - Discharge Planning Routine 07/29/20 08:14 Consult Pulmonology Routine Procedures Performed CTA:Segmental pulmonary embolus within the anterior segment of the right upper lobe. Extensive multifocal consolidation within the lungs consistent with an infectious process. Trace bilateral pleural effusions. Ordered Studies 07/28/20 14:27 CT head/brain wo con Stat 07/28/20 15:30 CT abd pelvis wo con Stat CT chest diagnostic wo con Stat 08/10/20 10:48 CT angio chest PE protocol Routine Hospital Course (1) Altered mental status: Acute respiratory failure with hypoxia COVID-[address] CHEST:Moderate multifocal airspace opacities consistent with a viral pneumonia. Completed dexamethasone, remdesivir course 2 step: Requires 2 liters of supplemental oxygen with activity Acute Pulmonary Embolism Likely secondary to above -CTA:Segmental pulmonary embolus within the anterior segment of the right upper lobe. Extensive multifocal consolidation within the lungs consistent with an infectious process. Trace bilateral pleural effusions. 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 PRIOR HOSPITALIST Acute decompensated CHF/diastolic dysfunction : diuresed with Lasix Patient will need outpatient cardiology follow-up and echo Acute renal failure due to diuresis Resolved Monitor renal function Hypokalemia Hypomagnesemia Replace electrolytes as needed Monitor H/O Alcohol abuse: Reports drinks beer 89 beers a day Alcohol level less than 3 No sign of DT or withdrawn Continue thiamine and folic acid Counseled to quit drinking DVT Px: Lovenox SQ CODE STATUS FULL CODE Disposition: Home with Home Health as able Total Time Total Time Spent Total Time Spent (In Minutes): 44 minutes Total Time Includes: Examination of the Patient, Discharge Planning, Medication Reconciliation, Communication With Other Providers and Other Discharge Plan Discharge Items Patient Disposition: Home - Home Health Services Reason For Visit: CONFUSION, COVID Discharge Diagnosis: COVID 19 PNEUMONIA ACUTE HYPOXEMIC RESPIRATORY FAILURE ACUTE CHF WITH DIASTOLIC DYSFUNCTION HYPOMAGNESEMIA ACUTE PULMONARY EMBOLISM Activity: As commented below Activity Comment: As tolerated Non-emergency contact: Primary Care Provider and Mutual Fund Sales Agent Call non-emergency contact if: you have any medication questions, your symptoms worsen, your pain is not controlled, your pain is worsening, your pain is unusual for you and you have a fever Follow-up/Referrals: Lalo Sue MD [Primary Care Provider] - (Date & Time 08/16/2020 3:00 PM Provider Lalo Sue MD [facility] PLEASE NOTE THAT THIS IS A TELEPHONE APPOINTMENT. YOUR PROVIDER WILL CALL YOU AT THE APPOINTMENT TIME. IF YOU HAVE ANY QUESTIONS, PLEASE CALL ) Diet: Heart Healthy Ambulatory Orders: Prothrombin Time INR (Timed) Timeframe: [id number] Location: Determined by Patient Ordered By: Carlos Gonzalez Attending Provider Instructions: Follow up with your Primary Care physician Dr. Sue on 08/16/2020 3:00 PM as scheduled Follow up with your Mutual Fund Sales Agent for further evaluation to rule out congestive heart failure FOLLOW UP WITH COUMADIN CLINIC FOR MANAGEMENT OF COUMADIN DOSING AND MONITORING PT/INR Use 2 L of oxygen via nasal cannula with activity at all times. Further instructions as per your primary care physician. YOUR PT/INR IS 1.5 ON 08/12/20. YOU WERE GIVEN 5MG COUMADIN TODAY. GET PT/INR TOMORROW (08/13/20) AND FOLLOW UP WITH COUMADIN CLINIC FOR FURTHER DOSING INSTRUCTIONS CONTINUE LOVENOX SQ 70 MG EVERY 12 HOURS UNTIL YOUR INR IS THERAPEUTIC (BETWEEN 2-3) ON 2 CONSECUTIVE DAYS AND STOP Take medications regularly as prescribed. Quit drinking alcohol as advised Seek immediate medical attention if your symptoms reoccur or worsen Home Isolation COVID-19 Instructions The following information about Home Isolation is from the CDC Website: https://www.cdc.gov/coronavirus/2019-ncov/hcp/qxrxibwq-ydckkdk-pwtqkl.html Stay home except to get medical care People who are mildly ill with COVID-19 are able to isolate at home during their illness. You should restrict activities outside your home, except for getting medical care. Do not go to work, school, or public areas. Avoid using public transportation, ride-sharing, or taxis. Separate yourself from other people and animals in your home People: As much as possible, you should stay in a specific room and away from other people in your home. Also, you should use a separate bathroom, if available. Animals: You should restrict contact with pets and other animals while you are sick with COVID-19, just like you would around other people. Although there have not been reports of pets or other animals becoming sick with COVID-19, it is still recommended that people sick with COVID-19 limit contact with animals until more information is known about the virus. When possible, have another member of your household care for your animals while you are sick. If you are sick with COVID-19, avoid contact with your pet, including petting, snuggling, being kissed or licked, and sharing food. If you must care for your pet or be around animals while you are sick, wash your hands before and after you interact with pets and wear a face mask. Call ahead before visiting your doctor If you have a medical appointment, call the healthcare provider and tell them that you have or may have COVID-19. This will help the healthcare providers office take steps to keep other people from getting infected or exposed. Wear a face mask You should wear a face mask when you are around other people (e.g., sharing a room or vehicle) or pets and before you enter a healthcare providers office. If you are not able to wear a face mask (for example, because it causes trouble breathing), then people who live with you should not stay in the same room with you, or they should wear a face mask if they enter your room. Cover your coughs and sneezes Cover your mouth and nose with a tissue when you cough or sneeze. Throw used tissues in a lined trash can. Immediately wash your hands with soap and water fo r at least 20 seconds or, if soap and water are not available, clean your hands with an alcohol-based hand paint stockman that contains at least 60% alcohol. Clean your hands often Wash your hands often with soap and water for at least 20 seconds, especially after blowing your nose, coughing, or sneezing; going to the bathroom; and before eating or preparing food. If soap and water are not readily available, use an alcohol-based hand paint stockman with at least 60% alcohol, covering all surfaces of your hands and rubbing them together until they feel dry. Soap and water are the best option if hands are visibly dirty. Avoid touching your eyes, nose, and mouth with unwashed hands. Avoid sharing personal household items You should not share dishes, drinking glasses, cups, eating utensils, towels, or bedding with other people or pets in your home. After using these items, they should be washed thoroughly with soap and water. Clean all high-touch surfaces everyday High touch surfaces include counters, tabletops, doorknobs, bathroom fixtures, toilets, phones, keyboards, tablets, and bedside tables. Also, clean any misty faces that may have blood, stool, or body fluids on them. Use a household cleaning spray or wipe, according to the label instructions. Labels contain instructions for safe and effective use of the cleaning product including precautions you should take when applying the product, such as wearing gloves and making sure you have good ventilation during use of the product. Monitor your symptoms Seek prompt medical attention if your illness is worsening (e.g., difficulty breathing).Beforeseeking care, call your healthcare provider and tell them th at you have, or are being evaluated for, COVID-19. Put on a face mask before you enter the facility. These steps will help the healthcare providers office to keep other people in the office or waiting room from getting infected or exposed. Ask your healthcare provider to call the local or state health department. Persons who are placed under active monitoring or facilitated self- monitoring should follow instructions provided by their local health department or occupational health professionals, as appropriate. When working with your local health department check their available hours. If you have a medical emergency and need to call 911, notify the dispatch personnel that you have, or are being evaluated for COVID-19. If possible, put on a face mask before emergency medical services arrive. Discontinuing home isolation Patients with confirmed COVID-19 should remain under home isolation precautions until the risk of secondary transmission to others is thought to be low. The decision to discontinue home isolation precautions should be made on a hifz-mz-mfjo basis, in consultation with healthcare providers and state and local health departments. Coronavirus disease 2019 (COVID-19) is a virus that causes a respiratory illness. It is caused by a coronavirus called 2019 novel coronavirus (2019- nCoV). There are many types of coronavirus. Coronaviruses are a very common cause of bronchitis. They may sometimes cause lung infection(pneumonia). Symptoms can range from mild to severe respiratory illness. These viruses are also foundin some animals. COVID-19 was first found in people in [facility], in late 2018. In 2019, several cases of COVID-19 have been confirmed in the [place] Public health officials are working to find the source. How the virus spreads is not yet fully known. It may be spread through droplets of fluid that a person coughs or sneezes into the air. It may be spread if you touch a surface with virus on it, such as a handle or object, and then touch your mouth. What are the symptoms of COVID-19? Some people have no symptoms or mild symptoms. Symptoms may appear 2 to 14 days after contact with the virus. Symptoms can include: Fever Coughing Trouble breathing What are possible complications from COVID-19? In many cases, this virus can cause infection (pneumonia) in both lungs. In some cases, this can cause . How is COVID-19 diagnosed? Your healthcare provider will ask about your symptoms. He or she will also ask a bout your recent travel and contact with sick people. Testing for the virus is only done through the CDC. If yourhealthcare provider thinks you may have COVID- 19, he or she will work with your local health department and the CDC on testing. Follow all instructions from your healthcare provider. COVID-19 is diagnosed by: Nasal and throat swab. A cotton-tipped swab is wiped inside your nose or t hroat. This is done to check for viruses in your nasal mucus. Sputum culture. A small sample of mucus coughed from your lungs (sputum) is collected if you have a cough. It is checked for the virus. How is COVID-19 treated? There is currently no medicine to treat the virus. Treatment is done to help your body while it fights the virus. This is known as supportive care. Supportive care may include: Pain medicine. These include acetaminophen and ibuprofen. They are used to help ease pain and reduce fever. Bed rest. This helps your body fight the illness. For severe illness, you may need to stay in the hospital. Care during severe illness may include: IV (intravenous) fluids.These are given through a vein to help keep your body hydrated. Oxygen. Supplemental oxygen or ventilation with a breathing machine (ventilator) may be given. This is done to keep enough oxygen in your body. Are you at risk for COVID-19? If youve been to a place where people have been sick with this virus, you are at risk for infection. You are at risk if you: Recently traveled to an affected area Had contact with a sick person who recently traveled to this area Had contact with a person who was diagnosed with COVID-19 How can COVID-19 be prevented? There is no vaccine yet. The best prevention is to not have contact with the virus. The CDC advises that people should not travel to areas where there are COVID-19 outbreaks right now for any reason that is not urgent. To help prevent spreading the infection, wash your hands often, or use an alcohol-basedhand paint stockman. If you are in an area with COVID-19: Wash your hands often. Or use an alcohol-based hand paint stockman often. Only touch your eyes, nose, or mouth with clean hands. Dont have contact with people who are sick. Follow local instructions about being in public. For example, you may be told to not use public transport for a period of time. Stay away from markets that have live or animals. Wash your hands after touching any animals. Don't touch animals that may be sick. Dont share eating or drinking tools with sick people. Dont kiss someone who is sick. Clean surfaces often with disinfectant. If you were in an area with COVID-19 in the last 14 days: Call your healthcare provider. He or she can talk with local health staff to see what action may be needed. Follow all instructions from your provider. Take your temperature every morning and evening for at least 14 days. This is to check for fever. Keep a record of the readings. Keep watch for symptoms of the virus. Tell your provider right away if you have symptoms. If you were in an area with COVID-19 and have a fever or other symptoms: Dont panic. Keep in mind that other illnesses can cause similar symptoms. Stay away from work, school, and public places. Limit physical contact with family members. Don't kiss anyone or share eating or drinking utensils. Clean surfaces you touch with disinfectant. This is to help prevent the virus from spreading. Call your healthcare provider. Explain that you have been exposed to COVID-19 and have symptoms. Do this before going to any hospital. Wait for instructions. Keep in mind that healthcare staff may wear protective equipment such as masks, gowns, gloves, and eye protection. You may be put in a separate room. This is to prevent the possible virus from spreading. Tell the healthcare staff about recent travel. This includes local travel on public transport. Staff may need to find other people you have been in contact with. Follow all instructions the healthcare staff give you. If you have been diagnosed with COVID-19 Follow all instructions from your healthcare provider. Dont leave your home, except to get medical care. Call your healthcare providers office before going. They can prepare and give you instructions. This will help prevent the virus from spreading. Dont go to work, school, or public areas. Dont use public transport or taxis. Stay away from other people in your home. Have them wear face masks around you. Dont share household items or food. Wear a face mask if you can. This includes at home or in a medical facility. Cover your face with a tissue when you cough or sneeze. Throw the tissue away. Wash your hands. Wash your hands often. Caregivers should: Follow all instructions from healthcare staff. Wear a face mask and protective clothing as advised. Wash hands often. Keep track of the sick persons symptoms. Clean surfaces, fabrics, and laundry thoroughly. Keep other people away from the sick person. When to call your healthcare provider Call your healthcare provider: If youve recently traveled and have symptoms If you have been diagnosed with COVID-19 and your symptoms are worse To learn more To find out more about COVID-19, visit the CDC website at www.cdc.gov/coronavirus/2019-ncov/index.html. [employer]. [address] [place] [address]. All rights reserved. This information is not intended as a substitute for professional medical care. Always follow your healthcare professional's instructions. This information has been adapted from [employer] Call your Primary Care doctor if any of the following symptoms or problems start or get worse: * Shortness of breath or difficulty breathing * Wake up at night short of breath * Chest pain * Cough * Swelling of your hands, feet, or legs * More fatigued or tired with your normal activity * Palpitations - sudden fast heart beats WEIGHT * Weigh yourself every morning after using the bathroom. * Use the same scale. * Wear the same amount of clothing. * Write your weight down on a chart. * Call your Primary Care doctor if you gain more than 2-3 pounds in 1-2 days. MEDICATIONS * Use this discharge instruction sheet for medication instructions. * Take your medications at the time your doctor ordered. * Do not skip a dose of your medicines. * If you miss a dose of medicine, take it as soon as possible, but DO NOT DOUBLE A DOSE. * Read your medicine information when you get home. * Know all of the side effects of your medicine. If in doubt, ask your pharmacist * Call your Primary Care doctor's office if you have any side effects. * Be sure all of your doctors know what medicine and herbs you take (including cold, flu, and herbal medicine). Take the following with you to your follow-up doctor appointments: * Weight Chart * Medication List * List of questions Do not drink excessive alcohol, beer or wine. [employer] Counter Representative Provider Instructions: ECHOCARDIOGRAM TO ASSESS LEFT VENTRICULAR FUNCTION IN 1-2 MONTHS FOR CONGESIVE HEART FAILURE Pending Studies at Discharge: No Stand-Alone Forms: My mymission2, Smoking Cessation Medications and DC Order Prescriptions: New thiamine HCl (vitamin B1) [Vitamin B-1] 100 mg Tablet 100 mg PO QAM Qty: 30 RF: 0 folic acid 1 mg Tablet 1 mg PO QAM Qty: 30 RF: 0 magnesium chloride 64 mg tablet,delayed release (DR/EC) 64 mg PO BID Qty: 14 RF: 0 warfarin 2.5 mg tablet 2.5 mg PO UD Qty: 60 RF: 0 warfarin 1 mg tablet 1 mg PO UD Qty: 60 RF: 0 enoxaparin [Lovenox] 80 mg/0.8 mL Syringe 70 mg SC Q12H 4 Days Qty: 5.6 RF: 0 Continued Metoprolol Succ (Toprol Xl) (Toprol-Xl) 25 MG [id number] 50 mg PO DAILY Qty: 30 RF: 0 PRIMIDONE (MYSOLINE) 250 MG tablet 250 mg PO BID Qty: 0 RF: 0 lisinopril 10 mg tablet 10 mg PO DAILY RF: 0 aspirin 81 mg Tablet 81 mg PO DAILY RF: 0 carbidopa-levodopa 25-100 mg tablet 1 tab PO TID RF: 0 topiramate 50 mg tablet 50 mg PO BID RF: 0 Discharge Orders: Discharge Order (Routine); Ordered 08/12/20 Ordered By: Carlos Sorto Admission Data Admit Date/Time: 07/28/20 16:56 Attending Provider: Carlos Sorto Admit Provider: Piyush Manley Primary Care Provider: Lalo Sue Other Providers: Piyush Manley ; Zaida Pacheco ; [facility] ; [facility] Other Interventions: Discharge Summary Assessment (RN) Last Done: 08/12/20 17:03
[2020-08-12] MEDS: WARFARIN SOD 5 MG TAB PO SCH (16:15)
--- NOTE | 2020-08-13 15:23 | Communication Note ---
Date of Service: August 13, 2020 Noticed INR to be 5.4 today. Informed patient to hold Lovenox, Coumadin today and follow-up with Coumadin clinic/PCP tomorrow for further instructions.
== END 2020-08-12 17:07 | disposition home health service (06) | DRG 177 ==
LOC: ED 13:52 → 2E 16:56 → SUATTDRO 16:56 → 2E 19:05 → 3E 08-03 01:28